=== PATIENT | female | born 1930 | race Caucasian/White ===

== ENCOUNTER 2016-08-18 12:58 | Outpatient (RCR) | payer MEDICARE ==
[~2016-08-18 12:58] MED LIST: AC325T PO; AC500T PO; ALN70T PO; ASP325T PO; ASP81TEC PO; ATEN-156 PO; ATEN50TA PO; ATR20T PO; ATRV10T PO; CA C1TAB26 PO; CATH IV; CHOL10003 PO; CHOL400T PO; CHOL400T26 PO; CHOL400T29 PO; CLAR-19; CLOP75TA PO; CPR500T PO; CRS350T PO; E400C PO; ENOX30DI9 SQ; FAMO20TA5 PO; FOLI1TAB6 PO; HYDR1CAP2 PO; IBUPROFEN; KRIL1CAP2 PO; KRIL1CAP22 PO; LEVO175T2 PO; LEVO75TA6 PO; LOSA100T7 PO; LOSA25TA15 PO; LOSA25TA5 PO; LOVA20TA2 PO; LOVA40TA2 PO; LVT.15T PO; MEGA RED PO; MULT-608 PO; NAPR220C11 PO; NAPR220T76 PO; OLME1TAB22 PO; OLME20TA21 PO; OMEP20CA12 PO; OMG1KC PO; ONDA2VIA IV; OXYC-12 PO; OXYC-309 PO; PRCD5U; PRED2.5T4; SALINE FLUSH IV; SENN1TAB76 PO; TMZP15C PO; VITA200C53 PO; VITA200C60 PO; [UNRECOGNIZED DRUG - OTHER] IV
--- OUTSIDE RECORDS SUMMARY | 2016-08-18 13:02 | XMS REPORT | Continuity of Care Document ---
Author Author [facility] Organization [facility] Address Unknown Phone Unavailable Care Team Providers Care Field Project Manager Name Role Phone TED BUCKNER MD PCP Insurance Providers Payer Name Policy Number Subscriber Name Relationship Wps Medicare [id number] Alpa Dill 18 Self / Same As Patient Blue Cross [facility] Supp [id number] Alpa Dill 18 Self / Same As Patient Advance Directives Directive Response Recorded Date/Time Advance Directives Yes 01/19/16 2:05am Health Care Power of Wood Die Maker Yes 01/19/16 2:05am Organ Donor No 01/19/16 2:05am Resuscitation Status Full Code 01/19/16 2:05am Chief Complaint and Reason for Visit Chief Complaint SMALL BOWEL OBSTRUCTION DUE TO ADHESIONS Reason for Visit Acute renal insufficiency Hypertension Hypothyroid Small bowel obstruction Small bowel obstruction due to adhesions Problems Active Problems Medical Problem Onset Date Status Acute renal insufficiency Unknown Resolved Chest pain of uncertain etiology Unknown Acute Hypertension Unknown Chronic Hypothyroid Unknown Chronic Small bowel obstruction Unknown Acute Small bowel obstruction due to adhesions Unknown Resolved Medications Current Home Medications Medication Dose Units Route Directions Days/Qty Instructions Start Date Atenolol 50 Mg 50 Mg Oral Daily 01/08/09 Losartan Potassium 100 Mg 100 Mg Oral Daily 04/06/13 Aspirin 325 Mg 325 Mg Oral Bedtime 04/06/13 Folic Acid/Mv,Fe,Other Min 1 Each 1 Tab Oral Daily 10/02/13 Cholecalciferol (Vitamin D3) 400 Unit 400 Unit Oral Daily 05/23/15 Krill/Om-3/Dha/Epa/Phospho/Ast 1 Each 1 Cap Oral Bedtime 05/23/15 Levothyroxine Sodium 75 Mcg 75 Mcg Oral Bedtime 01/20/16 Past Home Medications Medication Directions Ordered Status Multivitamins 1 Tab Tablet, 1 Tab Oral Daily 01/08/09 Discontinued Vitamin E 400 Unit Capsule, 400 U Oral Daily 01/08/09 Discontinued Levothyroxine Sodium (Levothroid) 150 Mcg Tablet, 150 Mcg Oral Daily Discontinued Olmesartn/Hydrochlorothiazide 1 Tab Tablet, 12.5 Mg Oral Daily 01/08/09 Discontinued Carisoprodol 350 Mg Tablet, 350 Mg Oral As Needed 01/08/09 Discontinued Hydrocodone Bit/Acetaminophen 1 Each Capsule, 1 Tab Oral As Needed 01/08/09 Discontinued Naproxen Sodium 220 Mg Tablet, 220 Mg Oral As Needed 01/08/09 Discontinued Acetaminophen 500 Mg Tablet, 500 Mg Oral As Needed 01/08/09 Discontinued Promethazine Hcl/Codeine 5 Ml Syrp, 01/08/09 Discontinued Clarithromycin 500 Mg Tab, 01/08/09 Discontinued Prednisone 2.5 Mg Tablet, 01/08/09 Discontinued Alendronate Sodium 70 Mg Tab, 70 Mg Oral Daily 01/08/09 Discontinued Levothyroxine Sodium 175 Mcg Tablet, 175 Mcg Oral Bedtime 04/09/11 Discontinued Lovastatin (Mevacor) 20 Mg Tablet, 40 Mg Oral Bedtime 04/09/11 Discontinued Fish Oil 1,000 Mg Cap, 1000 Mg Oral Three Times A Day 04/09/11 Discontinued Atenolol 50 Mg Tablet, 1 Each Oral Daily 04/09/11 Discontinued Olmesartan 20 Mg Tablet, 40 Mg Oral Daily 04/09/11 Discontinued Ca Cmb No.1/Vit D3/B-6/Fa/B12 1 Each Tablet, 1 Each Oral Daily 04/09/11 Discontinued Clopidogrel Bisulfate 75 Mg Tablet, 1 Each Oral Daily 09/14/11 Discontinued Aspirin 81 Mg Tabec, 81 Mg Oral Daily 09/14/11 Discontinued Aspirin 325 Mg Tab, 325 Mg Oral Daily 09/14/11 Discontinued Naproxen Sodium 220 Mg Capsule, 220 Mg Oral As Needed 09/30/11 Discontinued Vitamin E 400 Unit Capsule, 400 Unit Oral Daily 09/30/11 Discontinued Cholecalciferol 1,000 Unit Tablet, 1000 Unit Oral Daily 09/30/11 Discontinued [Ibuprofen] , As Needed 09/30/11 Discontinued Cholecalciferol (Vitamin D3) 400 Unit Tablet, 400 Unit Oral Daily 01/04/13 Discontinued Levothyroxine Sodium (Levothroid) 150 Mcg Tablet, 150 Mcg Oral Bedtime Discontinued Krill Oil/[place]-3/Dha/Epa 1 Each Capsule, 1 Cap Oral Twice A Day 01/04/13 Discontinued Acetaminophen 325 Mg Tab, 650 Mg Oral Every 6 Hours as needed 01/13/13 Discontinued Enoxaparin Sodium 30 Mg/0.3 Ml Disp.syrin, 30 Mg Sub-Q Give Every 12 Hrs On Schedule 01/13/13 Discontinued Losartan Potassium 25 Mg Tablet, 25 Mg Oral Daily 01/13/13 Discontinued Ondansetron Hcl 4 Mg/2 Ml Soln, 4 Mg Intraven Every 6 Hours as needed Discontinued Oxycodone Hcl/Acetaminophen 1 Each Tablet, 1 Each Oral Q2hrs as needed Discontinued Senna 1 Ea Tablet, 2 Ea Oral Twice A Day 01/13/13 Discontinued [Cathete] , 10 Ml Intraven As Needed as needed 01/13/13 Discontinued [Cath] , 10 Ml Intraven Every 8HRS 01/13/13 Discontinued Temazepam 15 Mg Capsule, 15 Mg Oral Bedtime as needed 01/13/13 Discontinued Cholecalciferol (Vitamin D3) 400 Unit Tablet, 400 Unit Oral Daily 01/13/13 Discontinued [Saline Flush] , 10 Ml Intraven Every 8HRS 01/13/13 Discontinued [Saline Flush] , 10 Ml Intraven As Needed 01/13/13 Discontinued Oxycodone Hcl/Acetaminophen 1 Each Tablet, 1 Each Oral Bedtime 01/17/13 Discontinued Losartan Potassium 25 Mg Tablet, 25 Mg Oral Daily 01/19/13 Discontinued Senna 1 Tab Tablet, 2 Tab Oral Twice A Day as needed 01/19/13 Discontinued Ciprofloxacin 500 Mg Tablet, 1 Tab Oral Twice A Day 03/06/13 Discontinued Vitamin E 400 Unit Capsule, 400 Unit Oral Daily 04/11/13 Discontinued [Jose L Red] , 1 Cap Oral Bedtime 04/11/13 Discontinued Lovastatin (Mevacor) 40 Mg Tablet, 40 Mg Oral Bedtime 04/11/13 Discontinued Atorvastatin Calcium 10 Mg Tablet, 10 Mg Oral Bedtime 10/02/13 Discontinued Vitamin E (Dl,Tocopheryl Acet) 200 Unit Capsule, 200 Unit Oral Daily Discontinued Atorvastatin Calcium 20 Mg Tablet, 20 Mg Oral Bedtime 10/02/13 Discontinued Famotidine (Pepcid) 20 Mg Tablet, 1 Each Oral Daily 10/02/13 Discontinued Vitamin E (Dl,Tocopheryl Acet) 200 Unit Capsule, 200 Unit Oral Daily Discontinued Omeprazole 20 Mg Capsule.dr, 20 Mg Oral Daily 05/24/15 Discontinued Social History Social History Problem Response Recorded Date/Time Alcohol Use Denies Use 01/19/2016 2:05am Recreational Drug Use No 01/19/2016 2:05am Recent Foreign Travel No 10/02/2013 10:30am Recent Infectious Disease Exposure No 10/02/2013 10:30am Hospitalization with Isolation Denies 10/02/2013 10:30am Smoking Status Current Everyday Smoker 01/19/2016 2:05am Do you dip or chew tobacco? No 01/18/2016 9:21pm Query Response Start Date Stop Date Smoking Status Current Everyday Smoker 03/20/2015 Hospital Discharge Instructions No hospital discharge instructions. Plan of Care Discharge Date 01/20/16 2:10pm Disposition 01 HOME, SELF-CARE Instructions/Education Provided Bowel Obstruction (DC) Forms Provided PDI Surgical Prescriptions See Medication Section Referrals (Unspecified) - 1 Week Functional Status Query Response Date Recorded Patient Orientation Person Place Time Situation January 20, 2016 2:57pm Comprehension Ability Understands Concepts January 19, 2016 2:05am Allergies, Adverse Reactions, Alerts Allergen Type Severity Reaction Status Last Updated Sulfa (Sulfonamide Antibiotics) ([id number]) Allergy Unknown Active 10/12 Immunizations Name Given Type Date of Pneumonia Vaccine 05/02/13 Historical Date of Influenza Vaccine 05/02/13 Historical Tetanus Booster (TDap) Unknown Historical Vital Signs Acute Vital Signs Vital Response Date/Time Temperature (Fahrenheit) 98.8 degrees F (97.6 - 99.5) 01/20/2016 2:05pm Temperature (Calculated Celsius) 37.39607 degrees C (36.4 - 37.5) 01/20/2016 10:00am Temperature Source Tympanic 01/20/2016 2:05pm Pulse Rate (adult) 60 bpm (60 - 90) 01/20/2016 2:05pm Respiratory Rate 16 bpm (12 - 24) 01/20/2016 2:05pm O2 Sat by Pulse Oximetry 93 % (88 - 100) 01/20/2016 2:05pm Blood Pressure 131/62 mm Hg 01/20/2016 2:05pm Blood Pressure Mean 85 mm Hg 01/20/2016 10:00am Pain Pain Intensity 0 01/20/2016 10:00am Height (Feet) 5 feet 01/19/2016 2:05am Height (Inches) 1.00 inches 01/19/2016 2:05am Height (Calculated Centimeters) 154.612168 cm 01/19/2016 2:05am Weight (Pounds) 142 pounds 01/19/2016 2:05am Weight (Ounces) 0.0 oz 01/19/2016 2:05am Weight (Calculated Grams) 67211.117 gm 01/19/2016 2:05am Weight (Calculated Kilograms) 64.709899 kilograms 01/19/2016 2:05am Calculated BMI 26.8 01/19/2016 2:05am Results Laboratory Results Test Name Result Units Flags Reference Collection Date/Time Result Date/ Time Comments White Blood Count 8.1 10^3/uL 4.3-11.0 01/20/2016 5:17am 01/20/2016 5: 52am Red Blood Count 3.53 10^6/uL L 4.35-5.85 01/20/2016 5:01/20/2016 5: 52am Hemoglobin 11.3 G/DL L 11.5-16.0 01/20/2016 5:01/20/2016 5:52am Hematocrit 35 % 35-52 01/20/2016 5:01/20/2016 5:52am Mean Corpuscular Volume 98 FL 80-99 01/20/2016 5:01/20/2016 5: 52am Mean Corpuscular Hemoglobin 32 PG 25-34 01/20/2016 5:17a01/20/2016 5: 52am Mean Corpuscular Hemoglobin Concent 33 G/DL 32-36 01/20/2016 5:17a 5:52am Red Cell Distribution Width 13.8 % 10.0-14.5 01/20/2016 5:17am 2015 5:52am Platelet Count 133 10^3/uL 130-400 01/20/2016 5:01/20/2016 5:52am Mean Platelet Volume 11.0 FL H 7.4-10.4 01/20/2016 5:01/20/2016 5: 52am Neutrophils (%) (Auto) 59 % 42-75 01/20/2016 5:01/20/2016 5:52am Lymphocytes (%) (Auto) 28 % 12-44 01/20/2016 5:01/20/2016 5:52am Monocytes (%) (Auto) 8 % 0-12 01/20/2016 5:01/20/2016 5:52am Eosinophils (%) (Auto) 5 % 0-10 01/20/2016 5:01/20/2016 5:52am Basophils (%) (Auto) 0 % 0-10 01/20/2016 5:01/20/2016 5:52am Neutrophils # (Auto) 4.8 X 10^3 1.8-7.8 01/20/2016 5:01/20/2016 5: 52am Lymphocytes # (Auto) 2.3 X 10^3 1.0-4.0 01/20/2016 5:01/20/2016 5: 52am Monocytes # (Auto) 0.6 X 10^3 0.0-1.0 01/20/2016 5:01/20/2016 5: 52am Eosinophils # (Auto) 0.4 10^3/uL H 0.0-0.3 01/20/2016 5:01/20/2016 5 :52am Basophils # (Auto) 0.0 10^3/uL 0.0-0.1 01/20/2016 5:01/20/2016 5: 52am Neutrophils % (Manual) 68 % 01/18/2016 9:20pm 01/18/2016 10:13pm Band Neutrophils 1 % 01/18/2016 9:20pm 01/18/2016 10:13pm Lymphocytes % (Manual) 28 % 01/18/2016 9:20pm 01/18/2016 10:13pm Monocytes % (Manual) 1 % 01/18/2016 9:20pm 01/18/2016 10:13pm Eosinophils % (Manual) 1 % 01/18/2016 9:20pm 01/18/2016 10:13pm Basophils % (Manual) 1 % 01/18/2016 9:20pm 01/18/2016 10:13pm Blood Morphology Comment NORMAL 01/18/2016 9:20pm 01/18/2016 10: 13pm Urine Color YELLOW 01/19/2016 4:37am 01/19/2016 4:53am Urine Clarity VERY CLOUDY * 01/19/2016 4:37am 01/19/2016 4:53am Urine pH 6 5-9 01/19/2016 4:37am 01/19/2016 4:53am Urine Specific [place] 1.015 * 1.016-1.022 01/19/2016 4:37am 2015 4:53am Urine Protein 2+ * NEGATIVE 01/19/2016 4:37am 01/19/2016 4:53am Urine Glucose (UA) NEGATIVE NEGATIVE 01/19/2016 4:37am 01/19/2016 4: 53am Urine RBC (Auto) NEGATIVE NEGATIVE 01/19/2016 4:37am 01/19/2016 4: 53am Urine Ketones NEGATIVE NEGATIVE 01/19/2016 4:37am 01/19/2016 4:53am Urine Nitrite NEGATIVE NEGATIVE 01/19/2016 4:37am 01/19/2016 4:53am Urine Bilirubin NEGATIVE NEGATIVE 01/19/2016 4:37am 01/19/2016 4: 53am Urine Urobilinogen 1 MG/DL NORMAL 01/19/2016 4:37am 01/19/2016 4:53am Urine Leukocyte Esterase 2+ * NEGATIVE 01/19/2016 4:37am 01/19/2016 4: 53am Urine RBC NONE /HPF 01/19/2016 4:37am 01/19/2016 4:53am Urine WBC 10-25 /HPF * 01/19/2016 4:37am 01/19/2016 4:53am Urine Bacteria LARGE /HPF * 01/19/2016 4:37am 01/19/2016 4:53am Urine Squamous Epithelial Cells NONE /HPF 01/19/2016 4:37am 2015 4:53am Urine Crystals NONE /LPF 01/19/2016 4:37am 01/19/2016 4:53am Urine Casts NONE /LPF 01/19/2016 4:37am 01/19/2016 4:53am Urine Mucus NEGATIVE /LPF 01/19/2016 4:37am 01/19/2016 4:53am Urine Culture Indicated YES 01/19/2016 4:37am 01/19/2016 4:53am Sodium Level 141 MMOL/L 135-145 01/20/2016 5:01/20/2016 6:12am Potassium Level 4.3 MMOL/L 3.6-5.0 01/20/2016 5:01/20/2016 6:12am Chloride Level 108 MMOL/L H 98-107 01/20/2016 5:01/20/2016 6:12am Carbon Dioxide Level 24 MMOL/L 21-32 01/20/2016 5:01/20/2016 6: 12am Anion Gap 9 MMOL/L 5-14 01/20/2016 5:01/20/2016 6:12am Blood Urea Nitrogen 22 MG/DL H 7-18 01/20/2016 5:01/20/2016 6:12am Creatinine 1.14 MG/DL 0.60-1.30 01/20/2016 5:01/20/2016 6:12am BUN/Creatinine Ratio 19 01/20/2016 5:01/20/2016 6:12am Estimat Glomerular Filtration Rate 45 01/20/2016 5:01/20/2016 6:12am GFR INTERPRETIVE DATA UNITS FOR ESTIMATED GFR (eGFR): mL/min/1.73 M2 REFERENCE RANGE FOR ESTIMATED GFR (eGFR) eGFR NORMAL eGFR >60 MODERATELY DECREASED eGFR 30-59 SEVERLY DECREASED eGFR 15-29 KIDNEY FAILURE <15 (OR DIALYSIS) Glucose Level 133 MG/DL H 70-105 01/20/2016 5:01/20/2016 6:12am Calcium Level 8.4 MG/DL L 8.5-10.1 01/20/2016 5:01/20/2016 6:12am Total Bilirubin 0.7 MG/DL 0.1-1.0 01/20/2016 5:01/20/2016 6:12am Alkaline Phosphatase 45 U/L 40-136 01/20/2016 5:01/20/2016 6:12am Aspartate Amino Transf (AST/SGOT) 16 U/L 5-34 01/20/2016 5:2015 6:12am Alanine Aminotransferase (ALT/SGPT) 12 U/L 0-55 01/20/2016 5:17am 01/19 6:12am Total Protein 5.0 G/DL L 6.4-8.2 01/20/2016 5:17am 01/20/2016 6:12am Albumin 3.2 G/DL 3.2-4.5 01/20/2016 5:17am 01/20/2016 6:12am Amylase Level 60 U/L 25-125 01/18/2016 9:20pm 01/18/2016 10:06pm Lipase 11 U/L 8-78 01/18/2016 9:20pm 01/18/2016 10:06pm Microbiology Results Procedure Source Result Collection Date/Time Result Date/Time Urine Culture Urine, Clean Catch PROBABLE E.COLI 01/19/2016 4:37am 2015 7:44am Procedures No known history of procedures. Encounters Encounter Location Arrival/Admit Date Discharge/Depart Date Attending Provider Discharged Inpatient [facility] 01/19/16 1:29am 2:10pm PRIYANKA FOX DO Recent Diagnosis Acute renal insufficiency Hypertension Hypothyroid Small bowel obstruction Small bowel obstruction due to adhesions
[2016-08-18 13:19] LABS: BASOPHILS # (AUTO) 0.1 10^3/uL (0.0-0.1); BASOPHILS % (AUTO) 1 % (0-10); EOSINOPHILS # (AUTO) 0.2 10^3/uL (0.0-0.3); EOSINOPHILS % (AUTO) 3 % (0-10); LYMPHOCYTES # (AUTO) 2.4 X 10^3 (1.0-4.0); LYMPHOCYTES % (AUTO) 28 % (12-44); MEAN CORPUSCULAR HEMOGLOBIN 32 PG (25-34); MEAN CORPUSCULAR HGB CONC 34 G/DL (32-36); MEAN CORPUSCULAR VOLUME 96 FL (80-99); MEAN PLATELET VOLUME 9.9 FL (7.4-10.4); MONOCYTES # (AUTO) 0.6 X 10^3 (0.0-1.0); MONOCYTES % (AUTO) 7 % (0-12); NEUTROPHILS # (AUTO) 5.4 X 10^3 (1.8-7.8); NEUTROPHILS % (AUTO) 62 % (42-75); PLATELET COUNT 173 10^3/uL (130-400); RED BLOOD COUNT 4.04 10^6/uL (4.35-5.85); RED CELL DISTRIBUTION WIDTH 13.7 % (10.0-14.5); WHITE BLOOD COUNT 8.7 10^3/uL (4.3-11.0)
[2016-08-18 13:44] LABS: ALBUMIN 4.1 G/DL (3.2-4.5); BILIRUBIN,TOTAL 0.3 MG/DL (0.1-1.0); CREATININE SERUM 1.13 MG/DL (0.60-1.30); POTASSIUM 4.5 MMOL/L (3.6-5.0); TOTAL PROTEIN 6.5 G/DL (6.4-8.2)
[2016-10-28] MEDS ORDERED: AMLO5TAB2 PO (14:14)
[2016-10-28] MEDS ORDERED: HYDR-3812 PO (15:00)
== END 2016-11-16 | disposition home or self-care (01) ==
LOC: ONC 12:58
PROVIDERS: ATTEND Internal Medicine Hematology & Oncology
DX: C18.7 Malignant neoplasm of sigmoid colon (principal); I25.10 Atherosclerotic heart disease of native coronary artery without angina pectoris; E78.00 Pure hypercholesterolemia, unspecified; I10 Essential (primary) hypertension; E03.9 Hypothyroidism, unspecified; E11.9 Type 2 diabetes mellitus without complications; Z79.899 Other long term (current) drug therapy
CPT/HCPCS: 36415; 80053; 82378; 84443; 85025; 99213

== ENCOUNTER → 2016-09-01 | Outpatient (CLI) | payer MEDICARE ==
[~2016-09-01] MED LIST changes: +AMLO5TAB2 PO; +HYDR-3812 PO
--- OUTSIDE RECORDS SUMMARY | 2016-09-01 11:22 | XMS REPORT | Continuity of Care Document ---
Author Author [facility] Organization [facility] Address Unknown Phone Unavailable Care Team Providers Care Dough Maker Name Role Phone TED BUCKNER MD PCP Insurance Providers Payer Name Policy Number Subscriber Name Relationship Wps Medicare [id number] Alpa Dill 18 Self / Same As Patient Blue Cross [facility] Supp [id number] Alpa Dill 18 Self / Same As Patient Advance Directives Directive Response Recorded Date/Time Advance Directives Yes 01/19/16 2:05am Health Care Power of Him Director Yes 01/19/16 2:05am Organ Donor No 01/19/16 [...] Tablet, 150 Mcg Oral Bedtime Discontinued Krill Oil/[place]-3/Dha/Epa 1 Each Capsule, 1 Cap Oral Twice [...] Reaction Status Last Updated Sulfa (Sulfonamide Antibiotics) ([id number]) Allergy Unknown Active 10/12 Immunizations Name Given Type Date of Pneumonia Vaccine 05/02/13 Historical Date of Influenza Vaccine 05/02/13 Historical Tetanus Booster (TDap) Unknown Historical Vital Signs Acute Vital Signs Vital Response Date/Time Temperature (Fahrenheit) 98.8 degrees F (97.6 - 99.5) 01/20/2016 2:05pm Temperature (Calculated Celsius) 37.84365 degrees C (36.4 - 37.5) 01/20/2016 10:00am [...] 1.00 inches 01/19/2016 2:05am Height (Calculated Centimeters) 154.062606 cm 01/19/2016 2:05am Weight (Pounds) 142 pounds 01/19/2016 2:05am Weight (Ounces) 0.0 oz 01/19/2016 2:05am Weight (Calculated Grams) 50349.117 gm 01/19/2016 2:05am Weight (Calculated Kilograms) 64.139290 kilograms 01/19/2016 2:05am Calculated BMI 26.8 01/19/2016 [...] 5-9 01/19/2016 4:37am 01/19/2016 4:53am Urine Specific [place] 1.015 * 1.016-1.022 01/19/2016 4:37am 2015 4:53am [...] Discharge/Depart Date Attending Provider Discharged Inpatient [facility] 01/19/16 1:29am 2:10pm PRIYANKA FOX DO Recent Diagnosis Acute renal insufficiency Hypertension Hypothyroid Small bowel obstruction Small bowel obstruction due to adhesions
--- NOTE | 2016-09-01 12:00 | Diagnostic Imaging Report ---
INDICATION: Shortness of breath and right rib pain. PA and lateral chest. Heart and mediastinum are normal. Lungs are clear. There are no effusions or pneumothoraces. IMPRESSION: Negative chest. Dictated by: Dictated on workstation # [id number]
--- NOTE | 2016-09-01 12:02 | Diagnostic Imaging Report ---
INDICATION: Right rib injury 3 views of right ribs does not show any displaced fractures. There is no effusion or pneumothorax. IMPRESSION: Negative right ribs. Dictated by: Dictated on workstation # [id number]
== END ==
LOC: RAD 11:17
PROVIDERS: ATTEND Nurse Practitioner Family
DX: R05 Cough (principal); R07.81 Pleurodynia; Z99.81 Dependence on supplemental oxygen; Z91.81 History of falling
CPT/HCPCS: 71020; 71100

== ENCOUNTER → 2016-10-06 | Outpatient (CLI) | payer MEDICARE, OTHER ==
--- OUTSIDE RECORDS SUMMARY | 2016-10-06 10:03 | XMS REPORT | Continuity of Care Document ---
Author Author [facility] Organization [facility] Address Unknown Phone Unavailable Care Team Providers Care Merchandise For Resale Purchasing Agent Name Role Phone TED BUCKNER MD PCP Insurance Providers Payer Name Policy Number Subscriber Name Relationship Wps Medicare [id number] Alpa Dill 18 Self / Same As Patient Blue Cross [facility] Supp [id number] Alpa Dill 18 Self / Same As Patient Advance Directives Directive Response Recorded Date/Time Advance Directives Yes 01/19/16 2:05am Health Care Power of Pecan Sheller Yes 01/19/16 2:05am Organ Donor No 01/19/16 [...] Tablet, 150 Mcg Oral Bedtime Discontinued Krill Oil/[place]-3/Dha/Epa 1 Each Capsule, 1 Cap Oral Twice [...] Reaction Status Last Updated Sulfa (Sulfonamide Antibiotics) ([id number]) Allergy Unknown Active 10/12 Immunizations Name Given Type Date of Pneumonia Vaccine 05/02/13 Historical Date of Influenza Vaccine 05/02/13 Historical Tetanus Booster (TDap) Unknown Historical Vital Signs Acute Vital Signs Vital Response Date/Time Temperature (Fahrenheit) 98.8 degrees F (97.6 - 99.5) 01/20/2016 2:05pm Temperature (Calculated Celsius) 37.47462 degrees C (36.4 - 37.5) 01/20/2016 10:00am [...] 1.00 inches 01/19/2016 2:05am Height (Calculated Centimeters) 154.638206 cm 01/19/2016 2:05am Weight (Pounds) 142 pounds 01/19/2016 2:05am Weight (Ounces) 0.0 oz 01/19/2016 2:05am Weight (Calculated Grams) 25534.117 gm 01/19/2016 2:05am Weight (Calculated Kilograms) 64.781610 kilograms 01/19/2016 2:05am Calculated BMI 26.8 01/19/2016 [...] 5-9 01/19/2016 4:37am 01/19/2016 4:53am Urine Specific [place] 1.015 * 1.016-1.022 01/19/2016 4:37am 2015 4:53am [...] Discharge/Depart Date Attending Provider Discharged Inpatient [facility] 01/19/16 1:29am 2:10pm PRIYANKA FOX DO Recent Diagnosis Acute renal insufficiency Hypertension Hypothyroid Small bowel obstruction Small bowel obstruction due to adhesions
--- NOTE | 2016-10-06 19:45 | Diagnostic Imaging Report ---
EXAM: Digital mammogram, bilateral screening. The current study was also evaluated with a Computer Aided Detection (CAD) system. COMPARISON: 09/14/14, 07/07/13 and 05/25/12. At this time, there are no current complaints. FINDINGS: The fibroglandular tissue in both breasts is dense. This does limit the sensitivity of this exam. Overall, there does not appear to have been any significant change when compared to the prior study. No primary or secondary sign of malignancy is noted. IMPRESSION: There is no radiographic evidence for malignancy. ACR BI-RADS Category 1: Negative. Result letter will be mailed to the patient. Note: At least 10% of breast cancer is not imaged by mammography. Dictated by: Dictated on workstation # [id number]
== END ==
LOC: RAD 10:00
PROVIDERS: ATTEND Internal Medicine
DX: Z12.31 Encounter for screening mammogram for malignant neoplasm of breast (principal)
CPT/HCPCS: 77067

== ENCOUNTER 2016-10-28 13:56 | Emergency (ER) | payer MEDICARE, OTHER ==
[~2016-10-28] VITALS: Ht 154.9 cm; Wt 64.4 kg
[~2016-10-28 13:56] MED LIST changes: -AMLO5TAB2 PO; -HYDR-3812 PO
[2016-10-28] MEDS ORDERED: AMLO5TAB2 PO (14:14)
--- NOTE | 2016-10-28 14:38 | Diagnostic Imaging Report ---
INDICATION: Fall with right humeral pain. AP and lateral views of the right humerus are obtained. FINDINGS: There is a comminuted fracture of the lateral portion of the humeral head and neck. Humeral shaft appears intact. There is no lytic or blastic lesion. IMPRESSION: Acute fracture of lateral portion of humeral head and neck without significant displacement. Dictated by: Dictated on workstation # [id number]
--- NOTE | 2016-10-28 14:41 | Diagnostic Imaging Report ---
3 views of the right shoulder. INDICATION: Fall. FINDINGS: There is a comminuted fracture of the proximal humerus with a sclerotic nondisplaced fracture line running in a transverse plane through the anatomic neck of the humerus. There is no subluxation or dislocation. Mild degenerative changes at the acromioclavicular joint. IMPRESSION: Comminuted fracture of the proximal humerus with minimal displacement of the greater tuberosity laterally. Dictated by: Dictated on workstation # [id number]
[2016-10-28] MEDS ORDERED: HYDR-3812 PO (15:00)
--- NOTE | 2016-10-28 15:02 | ED Fall/Injury ---
General Chief Complaint: Upper Extremity Stated Complaint: FALL / R ARM Nursing Triage Note: PT CO OF R SHOULDER PAIN FROM FALL, STATES KNEE GAVE OUT AND FELL AT [facility] Source: patient, spouse Exam Limitations: no limitations History of Present Illness Time seen by provider: 14:43 Initial Comments 78-year-old female patient presents to the emergency department complains of right shoulder pain after falling. States her knee gave out and she fell onto the right shoulder while at [facility]. Denies hitting her head or loss of consciousness. Denies neck or back pain. Location Injury Occurred: [facility] Occurred: this morning Injuries/Pain Location: upper extremity (rt shoulder) Context: other (knee gave out) Loss of Consciousness: no loss of consciousness Modifying Factors: Improves With Immobilization, Worse With Movement Allergies and Home Medications Allergies Coded Allergies: Sulfa (Sulfonamide Antibiotics) (Verified Allergy, Unknown, 03/04/13) Home Medications Amlodipine Besylate 5 Mg Tablet, 5 MG PO DAILY, (Reported) Aspirin 325 Mg Tab, 325 MG PO HS, (Reported) Atenolol 50 Mg Tablet, 50 MG PO DAILY, (Reported) Cholecalciferol (Vitamin D3) 400 Unit Tablet, 400 UNIT PO DAILY, (Reported) Folic Acid/Mv,Fe,Other Min 1 Each Tablet, 1 TAB PO DAILY, (Reported) Hydrocodone/Acetaminophen 1 Each Tablet, 1 EACH PO Q4H PRN for PAIN, #30 Ref 0 Prescribed by: PEPE TAMEZ on 10/28/16 1500 Krill/Om-3/Dha/Epa/Phospho/Ast 1 Each Capsule, 1 CAP PO HS, (Reported) Levothyroxine Sodium 75 Mcg Tablet, 75 MCG PO HS, (Reported) Constitutional: No dizziness, No weakness Eyes: No Symptoms Reported Ears, Nose, Mouth, Throat: no symptoms reported Respiratory: No cough, No short of breath Cardiovascular: No chest pain, No palpitations, No syncope Gastrointestinal: no symptoms reported Genitourinary: no symptoms reported Musculoskeletal: No back pain, joint pain (rt shoulder), joint swelling (rt shoulder), No neck pain Skin: no symptoms reported Psychiatric/Neurological: Denies Headache, Denies Numbness, Denies Paresthesia , Denies Seizure, Denies Tingling, Denies Weakness All Other Systems Reviewed Negative Unless Noted: Yes (Negative excepted noted.) Past Xpfkezx-Kkswem-Qppfus Hx Patient Social History Alcohol Use: Denies Use Recreational Drug Use: No Smoking Status: Never a Smoker Former Smoker/When Quit: Mar 20, 2015 2nd Hand Smoke Exposure: No Recent Foreign Travel: No Contact w/Someone Who Travel: No Recent Infectious Disease Expo: No Recent Hopitalizations: No Immunizations Up To Date Tetanus Booster (TDap): Unknown PED Vaccines UTD: No Date of Pneumonia Vaccine: May 02, 2013 Date of Influenza Vaccine: May 02, 2013 Seasonal Allergies Seasonal Allergies: No Surgeries HX Surgeries: Yes (RIGHT KNEE AND LEFT HIP REPLACEMENTS) Surgeries: Gallbladder, Hysterectomy, Joint Replacement, Orthopedic Respiratory Hx Respiratory Disorders: Yes (AT AGE 7 ) Respiratory Disorders: Pneumonia Cardiovascular Hx Cardiac Disorders: Yes Cardiac Disorders: Heart Murmur, Hypertension, Valvular Heart Disease Neurological Hx Neurological Disorders: No Reproductive System Hx Reproductive Disorders: No Genitourinary Hx Genitourinary Disorders: No Genitourinary Disorders: Bladder Infection Gastrointestinal Hx Gastrointestinal Disorders: Yes Gastrointestinal Disorders: Obstructive Bowel, Chronic Constipation, Polyps Musculoskeletal Hx Musculoskeletal Disorders: Yes (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) Musculoskeletal Disorders: Arthritis Endocrine Hx Endocrine Disorders: Yes Endocrine Disorders: Hypothyroidsim HEENT HX ENT Disorders: Yes HEENT Disorders: Cataract Hearing Impairment: Hard of Hearing 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) Psychosocial Hx Psychiatric Problems: Yes Behavioral Health Disorders: Depression Integumentary HX Skin/Integumentary Disorder: No Blood Transfusions Hx Blood Disorders: No Adverse Reaction to a Blood Tr: No Reviewed Nursing Assessment Reviewed/Agree w Nursing PMH: Yes Family Medical History Significant Family History: Heart Disease, Hypertension Family Medial History: Myocardial infarction 19 FATHER, Onset:84 (FATHER OF UNKNOWN HEART PROBLEMS, PT STATES IT WAS PROBABLY A HEART ATTACK) 19 MOTHER, Onset:70 G8 BROTHER, Onset:46 G8 SISTER Physical Exam Vital Signs Capillary Refill : Less Than 3 Seconds Progress/Results/Core Measures Results/Orders My Orders Orders - PEPE TAMEZ Hydrocodone/Apap 5/325 Tablet (Lortab 5 (10/28/16 15:26) Padded Arm Sling Medium (10/28/16 15:26) Vital Signs/I&O Blood Pressure Mean: 119 Diagnostic Imaging Diagonstic Imaging: Xray Plain Films/CT/US/NM/MRI: other (rt shoulder) Comments FINDINGS: There is a comminuted fracture of the proximal humerus with a sclerotic nondisplaced fracture line running in a transverse plane through the anatomic neck of the humerus. There is no subluxation or dislocation. Mild degenerative changes at the acromioclavicular joint. IMPRESSION: Comminuted fracture of the proximal humerus with minimal displacement of the greater tuberosity laterally. Dictated by: Dictated on workstation # [id number] Reviewed: Reviewed by Me (radiology report reviewed) Diagonstic Imaging: Xray Plain Films/CT/US/NM/MRI: other (rt humerus) Comments INDICATION: Fall with right humeral pain. AP and lateral views of the right humerus are obtained. FINDINGS: There is a comminuted fracture of the lateral portion of the humeral head and neck. Humeral shaft appears intact. There is no lytic or blastic lesion. IMPRESSION: Acute fracture of lateral portion of humeral head and neck without significant displacement. Dictated by: Dictated on workstation # [id number] Reviewed: Reviewed by Me (radiology report reviewed.) Departure Communication Progress Notes Patient case discussed with Dr. Alfredo. Recommends placing patient in a shoulder immobilizer or sling and having her follow-up in his office within the next 7 days for recheck and further management. Diagnostic findings as well as recommendations by Dr. Alfredo discussed with the patient. Patient voices understanding and agrees with the treatment plan. Patient placed in a sling. All discharge instructions as well as return precautions were discussed with the patient. Patient voices understanding. Impression Impression: Primary Impression: Proximal humeral fracture Qualified Codes: S42.201A - Unspecified fracture of upper end of right humerus , initial encounter for closed fracture Disposition: 01 HOME, SELF-CARE Condition: Improved Departure-Patient Inst. Decision time for Depature: 14:58 Referrals: DEVI ALFREDO MD, JOHN D MD (PCP/Family) Primary Care Physician Patient Instructions: Shoulder Fracture (DC) Add. Discharge Instructions: All discharge instructions reviewed with patient and/or family. Voiced understanding. Medications as instructed. No ibuprofen or Aleve. Ice pack for 20 minute intervals as needed for pain. Arm sling as instructed. Follow- up with Dr. Alfredo as outpatient next 7 days, call his office for appointment time today. Return to the emergency department for worsened pain, numbness, weakness, discoloration, neck pain, back pain, changes in behavior, slurred speech, changes in behavior, chest pain, shortness of air, vomiting, seizure, or any other concerns. Scripts Hydrocodone/Acetaminophen (Hydrocodon -Acetaminophen 5-325) 1 Each Tablet 1 EACH PO Q4H Y for PAIN, #30 TAB 0 Refills Prov: PEPE TAMEZ 10/28/16 PEPE TAMEZ Oct 28, 2016 15:02
[2016-10-28] MEDS ORDERED: HYDROcodone/APAP 5 MG/325 MG (LORTAB) TAB PO STA (15:26)
[2016-10-28 15:49] VITALS: BP 136/84
--- OUTSIDE RECORDS SUMMARY | 2016-11-22 04:50 | XMS REPORT | Continuity of Care Document ---
Author Author [facility] Organization [facility] Address Unknown Phone Unavailable Allergies Active Description Code Type Severity Reaction Onset Reported/Identified Relationship to Patient Clinical Status Yes Sulfa (Sulfonamide Antibiotics) [id number] Drug Allergy Unknown N/A 03/04/2013 Medications Problems Date Dx Coded Attending Type Code Diagnosis Diagnosed By 04/10/2011 Ot 211.3 BENIGN NEOPLASM LG BOWEL 04/10/2011 Ot 244.9 HYPOTHYROIDISM NOS 04/10/2011 Ot 250.00 DIAB BRIDGET WO COMPL, TYPE II OR UNSPEC TY 04/10/2011 Ot 272.0 PURE HYPERCHOLESTEROLEM 04/10/2011 Ot 401.9 HYPERTENSION NOS 04/10/2011 Ot 530.81 ESOPHAGEAL REFLUX 04/10/2011 Ot 553.3 DIAPHRAGMATIC HERNIA 04/10/2011 Ot 562.12 DIVERTICULOSIS OF COLON WITH HEMORRHAGE 04/10/2011 Ot 578.1 BLOOD IN STOOL 08/13/2011 Ot 433.10 CAROTID ARTERY OCCLUSION W O CEREBRAL IN 08/13/2011 Ot 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 08/13/2011 Ot V43.64 HIP JOINT REPLACEMENT STATUS 08/13/2011 Ot V45.77 ACQRD ABSENCE OF GENITAL ORGANS 08/13/2011 Ot V45.79 ACQRD ABSENCE OF OTH ORGAN 08/13/2011 Ot V58.69 OTH MED,LT,CURRENT USE 09/30/2011 Ot 244.9 HYPOTHYROIDISM NOS 09/30/2011 Ot 250.00 DIAB BRIDGET WO COMPL, TYPE II OR UNSPEC TY 09/30/2011 Ot 272.4 HYPERLIPIDEMIA NEC/NOS 09/30/2011 Ot 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 09/30/2011 Ot 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 09/30/2011 Ot 401.9 HYPERTENSION NOS 09/30/2011 Ot 426.4 RT BUNDLE BRANCH BLOCK 09/30/2011 Ot 433.10 CAROTID ARTERY OCCLUSION W O CEREBRAL IN 09/30/2011 Ot 440.0 AORTIC ATHEROSCLEROSIS 09/30/2011 Ot V12.54 PERSONAL HX OF TIA, CEREBRAL INFARCTION 09/30/2011 Ot V58.66 LONG-TERM (CURRENT) USE OF ASPIRIN 09/30/2011 Ot V58.69 OTH MED,LT,CURRENT USE 01/13/2013 AURA ESCOBAR MD Ot 244.9 HYPOTHYROIDISM NOS 01/13/2013 AURA ESCOBAR MD Ot 250.00 DIAB BRIDGET WO COMPL, TYPE II OR UNSPEC TY 01/13/2013 AURA ESCOBAR MD Ot 272.4 HYPERLIPIDEMIA NEC/NOS 01/13/2013 AURA ESCOBAR MD Ot 401.9 HYPERTENSION NOS 01/13/2013 AURA ESCOBAR MD Ot 530.81 ESOPHAGEAL REFLUX 01/13/2013 AURA ESCOBAR MD Ot 715.36 LOC OSTEOARTH NOS-L/LEG 01/19/2013 OLVIN LIND, PRIYANKA E Ot 244.9 HYPOTHYROIDISM NOS 01/19/2013 OLVIN LIND, PRIYANKA E Ot 250.00 DIAB BRIDGET WO COMPL, TYPE II OR UNSPEC TY 01/19/2013 OLVIN LIND, PRIYANKA E Ot 272.4 HYPERLIPIDEMIA NEC/NOS 01/19/2013 OLVIN LIND, PRIYANKA E Ot 285.9 ANEMIA NOS 01/19/2013 OLVIN LIND, PRIYANKA E Ot 401.9 HYPERTENSION NOS 01/19/2013 OLVIN LIND, PRIYANKA E Ot 443.9 PERIPH VASCULAR DIS NOS 01/19/2013 OLVIN LIND, PRIYANKA E Ot 530.81 ESOPHAGEAL REFLUX 01/19/2013 OLVIN LIND, PRIYANKA E Ot 716.90 ARTHROPATHY NOS-UNSPEC 01/19/2013 OLVIN LIND, PRIYANKA E Ot 786.09 RESPIRATORY ABNORM NEC 01/19/2013 OLVIN LIND, PRIYANKA E Ot V43.65 KNEE JOINT REPLACEMENT STATUS 01/19/2013 OLVIN LIND, PRIYANKA E Ot V54.81 AFTERCARE FOLLOWING JOINT REPLACEMENT 01/19/2013 OLVIN LIND, PRIYANKA E Ot V57.89 REHABILITATION PROC NEC 03/06/2013 Ot 041.3 KLEBSIELLA PNEUMONIAE 03/06/2013 Ot 041.49 OTHER AND UNSPECIFIED ESCHERICHIA COLI [ 03/06/2013 Ot 041.85 BACTERIAL INFEC DUE TO OTH GRAM-NEG ORGA 03/06/2013 Ot 244.9 HYPOTHYROIDISM NOS 03/06/2013 Ot 250.00 DIAB BRIDGET WO COMPL, TYPE II OR UNSPEC TY 03/06/2013 Ot 272.4 HYPERLIPIDEMIA NEC/NOS 03/06/2013 Ot 401.9 HYPERTENSION NOS 03/06/2013 Ot 414.01 CORONARY ATHEROSCLEROSIS OF [place] CORON 03/06/2013 Ot 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 03/06/2013 Ot V15.82 HISTORY OF TOBACCO USE 04/11/2013 DEBBIE QUEEN DO Ot 211.3 BENIGN NEOPLASM LG BOWEL 04/11/2013 DEBBIE QUEEN DO Ot 578.1 BLOOD IN STOOL 08/16/2013 NEGIN KAT MD Ot 211.4 BENIGN NEOPL RECTUM/ANUS 08/16/2013 NEGIN KAT MD Ot 455.0 INT HEMORRHOID W/O COMPL 08/16/2013 NEGIN KAT MD Ot 455.3 EXT HEMORRHOID W/O COMPL 08/16/2013 NEGIN KAT MD Ot 562.10 DIVERTICULOSIS COLON (W/O MENT OF HEMORR 10/02/2013 TED BUCKNER MD Ot 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 10/02/2013 TED BUCKNER MD Ot 244.9 HYPOTHYROIDISM NOS 10/02/2013 TED BUCKNER MD Ot 250.00 DIAB BRIDGET WO COMPL, TYPE II OR UNSPEC TY 10/02/2013 TED BUCKNER MD Ot 272.0 PURE HYPERCHOLESTEROLEM 10/02/2013 TED BUCKNER MD Ot 272.4 HYPERLIPIDEMIA NEC/NOS 10/02/2013 TED BUCKNER MD Ot 311 DEPRESSIVE DISORDER NEC 10/02/2013 TED BUCKNER MD Ot 338.29 OTHER CHRONIC PAIN 10/02/2013 TED BUCKNER MD Ot 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 10/02/2013 TED BUKCNER MD Ot 397.0 TRICUSPID VALVE DISEASE 10/02/2013 TED BUCKNER MD Ot 401.9 HYPERTENSION NOS 10/02/2013 TED BUCKNER MD Ot 414.01 CORONARY ATHEROSCLEROSIS OF [place] CORON 10/02/2013 TED BUCKNER MD Ot 426.4 RT BUNDLE BRANCH BLOCK 10/02/2013 TED BUCKNER MD Ot 427.61 ATRIAL PREMATURE BEATS 10/02/2013 TED BUCKNER MD Ot 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 10/02/2013 TED BUCKNER MD Ot 433.10 CAROTID ARTERY OCCLUSION W O CEREBRAL IN 10/02/2013 TED BUCKNER MD Ot 443.9 PERIPH VASCULAR DIS NOS 10/02/2013 DUDLEY LIND, TED Ruiz Ot 716.90 ARTHROPATHY NOS-UNSPEC 10/02/2013 TED BUCKNER MD Ot 719.41 JOINT PAIN-SHLDER 10/02/2013 TED BUCKNER MD Ot 724.5 BACKACHE NOS 10/02/2013 TED BUCKNER MD Ot 785.2 CARDIAC MURMURS NEC 10/02/2013 TED BUCKNER MD Ot 786.59 CHEST PAIN NEC 10/02/2013 TED BUCKNER MD Ot V17.49 FAMILY HISTORY OF OTHER CARDIOVASCULAR D 12/03/2013 GERBER SUAREZ MD Ot 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 12/03/2013 GERBER SUAREZ MD Ot 244.9 HYPOTHYROIDISM NOS 12/03/2013 DANIELA LIND, GERBER [place] Ot 250.00 DIAB BRIDGET WO COMPL, TYPE II OR UNSPEC TY 12/03/2013 GERBER SUAREZ MD Ot 272.0 PURE HYPERCHOLESTEROLEM 12/03/2013 GERBER SUAREZ MD Ot 401.9 HYPERTENSION NOS 12/03/2013 GERBER SUAREZ MD Ot 414.00 CORON ATHEROSCLER NOS TYPE VESSEL, NATIV 03/05/2014 GERBER SUAREZ MD Ot 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 03/05/2014 GERBER SUAREZ MD Ot 244.9 HYPOTHYROIDISM NOS 03/05/2014 DANIELA LIND, GERBER [place] Ot 250.00 DIAB BRIDGET WO COMPL, TYPE II OR UNSPEC TY 03/05/2014 GERBER SUAREZ MD Ot 272.0 PURE HYPERCHOLESTEROLEM 03/05/2014 GERBER SUAREZ MD Ot 401.9 HYPERTENSION NOS 03/05/2014 GERBER SUAREZ MD Ot 414.00 CORON ATHEROSCLER NOS TYPE VESSEL, NATIV 06/15/2014 FREDERIC HARVEY Ot 250.00 06/15/2014 FREDERIC HARVEY Ot 272.0 06/15/2014 FREDERIC HARVEY Ot 401.9 06/15/2014 FREDERIC HARVEY Ot 434.91 06/15/2014 FREDERIC HARVEY Ot 786.50 06/26/2014 GERBER SUAREZ MD Ot 153.3 06/26/2014 GERBER SUAREZ MD Ot 244.9 06/26/2014 GERBER SUAREZ MD Ot 250.00 06/26/2014 GERBER SUAREZ MD Ot 272.0 06/26/2014 DANIELA LIND, GERBER [place] Ot 401.9 06/26/2014 DANIELA LIND, GERBER K Ot 414.00 07/04/2014 DANIELA LIND, GERBER K Ot 153.3 07/04/2014 DANIELA LIND, GERBER [place] Ot 244.9 07/04/2014 DANIELA LIND, GERBER K Ot 250.00 07/04/2014 DANIELA LIND, GERBER K Ot 272.0 07/04/2014 DANIELA LIND, GERBER K Ot 401.9 07/04/2014 DANIELA LIND, GERBER K Ot 414.00 07/05/2014 DANIELA LIND, GERBER K Ot 153.3 07/05/2014 DANIELA LIND, GERBER [place] Ot 244.9 07/05/2014 DANIELA LIND, GERBER K Ot 250.00 07/05/2014 DANIELA LIND, GERBER K Ot 272.0 07/05/2014 DANIELA LIND, GERBER K Ot 401.9 07/05/2014 DANIELA LIND, GERBER [place] Ot 414.00 08/30/2014 DANIELA LIND, GERBER [place] Ot 153.3 08/30/2014 DANIELA LIND, GERBER [place] Ot 244.9 08/30/2014 DANIELA LIND, GERBER [place] Ot 250.00 08/30/2014 DANIELA LIND, GERBER [place] Ot 272.0 08/30/2014 DANIELA LIND, GERBER K Ot 401.9 08/30/2014 DANIELA LIND, GERBER [place] Ot 414.00 08/30/2014 DANIELA LIND, GERBER [place] Ot V58.69 08/31/2014 DANIELA LIND, GERBER [place] Ot 153.3 08/31/2014 DANIELA LIND, GERBER [place] Ot 244.9 08/31/2014 DANIELA LIND, GERBER [place] Ot 250.00 08/31/2014 DANIELA LIND, GERBER K Ot 272.0 08/31/2014 DANIELA LIND, GERBER K Ot 401.9 08/31/2014 DANIELA LIND, GERBER K Ot 414.00 08/31/2014 DANIELA LIND, GERBER K Ot V58.69 10/02/2014 DANIELA LIND, GERBER K Ot 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 10/02/2014 DANIELA LIND, GERBER [place] Ot 244.9 HYPOTHYROIDISM NOS 10/02/2014 DANIELA LIND, GERBER [place] Ot 250.00 DIAB BRIDGET WO COMPL, TYPE II OR UNSPEC TY 10/02/2014 DANIELA LIND, GERBER [place] Ot 272.0 PURE HYPERCHOLESTEROLEM 10/02/2014 DANIELA LIND, GERBER [place] Ot 401.9 HYPERTENSION NOS 10/02/2014 DANIELA LIND, GERBER K Ot 414.00 CORON ATHEROSCLER NOS TYPE VESSEL, NATIV 10/02/2014 DANIELA LIND, GERBER [place] Ot V58.69 OT MED,LT,CURRENT USE 11/28/2014 DANIELA LIND, GERBER [place] Ot 153.3 11/28/2014 DANIELA LIND, GERBER [place] Ot 244.9 11/28/2014 DANIELA LIND, GERBER [place] Ot 250.00 11/28/2014 DANIELA LIND, GERBER [place] Ot 272.0 11/28/2014 DANIELA LIND, GERBER [place] Ot 401.9 11/28/2014 DANIELA LIND, GERBER [place] Ot 414.00 11/28/2014 DANIELA LIND, GERBER [place] Ot V58.69 11/28/2014 DANIELA LIND, GERBER [place] Ot 153.3 11/28/2014 DANIELA LIND, GERBER [place] Ot 244.9 11/28/2014 DANIELA LIND, GERBER [place] Ot 250.00 11/28/2014 DANIELA LIND, GERBER K Ot 272.0 11/28/2014 DANIELA LIND, GERBER [place] Ot 401.9 11/28/2014 DANIELA LIND, GERBER [place] Ot 414.00 11/28/2014 DANIELA LIND, GERBER K Ot V58.69 12/05/2014 DANIELA LIND, GERBER K Ot 153.3 12/05/2014 DANIELA LIND, GREBER [place] Ot 244.9 12/05/2014 DANIELA LIND, GERBER K Ot 250.00 12/05/2014 DANIELA LIND, GERBER K Ot 272.0 12/05/2014 DANIELA LIND, GERBER K Ot 401.9 12/05/2014 DANIELA LIND, GERBER K Ot 414.00 12/05/2014 DANIELA LIND, GERBER K Ot V58.69 12/06/2014 DANIELA LIND, GERBER [place] Ot 153.3 12/06/2014 DANIELA LIND, GERBER K Ot 244.9 12/06/2014 DANIELA LIND, GERBER K Ot 250.00 12/06/2014 DANIELA LIND, GERBER K Ot 272.0 12/06/2014 DANIELA LIND, GERBER K Ot 401.9 12/06/2014 DANIELA LIND, GERBER K Ot 414.00 12/06/2014 DANIELA LIND, GERBER K Ot V58.69 01/23/2015 DANIELA LIND, GERBER K Ot 153.3 01/23/2015 DANIELA LIND, GERBER [place] Ot 244.9 01/23/2015 DANIELA LIND, GERBER K Ot 250.00 01/23/2015 DANIELA LIND, GERBER K Ot 272.0 01/23/2015 DANIELA LIND, GERBER K Ot 401.9 01/23/2015 DANIELA LIND, GERBER [place] Ot 414.00 01/23/2015 DANIELA LIND, GERBER [place] Ot V58.69 01/25/2015 DANIELA LIND, GERBER [place] Ot 153.3 01/25/2015 DANIELA LIND, GERBER [place] Ot 244.9 01/25/2015 DANIELA LIND, GERBER [place] Ot 250.00 01/25/2015 DANIELA LIND, GERBER [place] Ot 272.0 01/25/2015 DANIELA LIND, GERBER [place] Ot 401.9 01/25/2015 DANIELA LIND, GERBER [place] Ot 414.00 01/25/2015 DANIELA LIND, GERBER [place] Ot V58.69 03/05/2015 DANIELA LIND, GERBER [place] Ot 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 03/05/2015 DANIELA LIND, GERBER [place] Ot 244.9 HYPOTHYROIDISM NOS 03/05/2015 DANIELA LIND, GERBER [place] Ot 250.00 DIAB BRIDGET WO COMPL, TYPE II OR UNSPEC TY 03/05/2015 DANIELA LIND, GERBER [place] Ot 272.0 PURE HYPERCHOLESTEROLEM 03/05/2015 DANIELA LIND, GERBER [place] Ot 401.9 HYPERTENSION NOS 03/05/2015 DANIELA LIND, GERBER [place] Ot 414.00 CORON ATHEROSCLER NOS TYPE VESSEL, NATIV 03/05/2015 DANIELA LIND, GERBER [place] Ot V58.69 OTH MED,LT,CURRENT USE 2015 TED BUCKNER MD Ot E03.9 HYPOTHYROIDISM, UNSPECIFIED 2015 TED BUCKNER MD Ot E11.9 TYPE 2 DIABETES MELLITUS WITHOUT COMPLIC 2015 TED BUCKNER MD Ot I10 ESSENTIAL (PRIMARY) HYPERTENSION 2015 TED BUCKNER MD Ot R07.9 CHEST PAIN, UNSPECIFIED 2015 TED BUCKNER MD Ot Z87.891 PERSONAL HISTORY OF NICOTINE DEPENDENCE 06/05/2015 DANIELA LIND, GERBER [place] Ot 153.3 06/05/2015 DANIELA LIND, GERBER [place] Ot 244.9 06/05/2015 DANIELA LIND, GERBER [place] Ot 250.00 06/05/2015 DANIELA LIND, GERBER [place] Ot 272.0 06/05/2015 DANIELA LIND, GERBER [place] Ot 401.9 06/05/2015 DANIELA LIND, GERBER [place] Ot 414.00 06/05/2015 DANIELA LIND, GERBER [place] Ot V58.69 07/18/2015 DANIELA LIND, GERBER [place] Ot 153.3 07/18/2015 DANIELA MD, GERBER K Ot 244.9 07/18/2015 DANIELA LIND, GERBER [place] Ot 250.00 07/18/2015 DANIELA LIND, GERBER [place] Ot 272.0 07/18/2015 DANIELA LIND, GERBER K Ot 401.9 07/18/2015 DANIELA LIND, GERBER K Ot 414.00 07/18/2015 DANIELA LIND, GERBER K Ot V58.69 08/07/2015 DANIELA LIND, GERBER [place] Ot C18.7 08/07/2015 DANIELA LIND, GERBER [place] Ot E03.9 08/07/2015 DANIELA LIND, GERBER K Ot E11.9 08/07/2015 DANIELA LIND, GERBER K Ot E78.0 08/07/2015 DANIELA LIND, GERBER K Ot I10 08/07/2015 DANIELA LIND, GERBER [place] Ot I25.10 08/07/2015 DANIELA LIND, GERBER [place] Ot Z79.899 08/07/2015 DANIELA LIND, GERBER [place] Ot C18.7 08/07/2015 DANIELA LIND, GERBER [place] Ot E03.9 08/07/2015 DANIELA LIND, GERBER [place] Ot E11.9 08/07/2015 DANIELA LIND, GERBER [place] Ot E78.0 08/07/2015 DANIELA LIND, GERBER [place] Ot I10 08/07/2015 DANIELA LIND, GERBER [place] Ot I25.10 08/07/2015 DANIELA LIND, GERBER [place] Ot Z79.899 09/10/2015 DANIELA LIND, GERBER [place] Ot 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 09/10/2015 DANIELA LIND, GERBER [place] Ot E03.9 HYPOTHYROIDISM, UNSPECIFIED 09/10/2015 DANIELA LIND, GERBER [place] Ot E11.9 TYPE 2 DIABETES MELLITUS WITHOUT COMPLIC 09/10/2015 DANIELA LIND, GERBER [place] Ot E78.0 PURE HYPERCHOLESTEROLEMIA 09/10/2015 DANIELA LIND, GERBER [place] Ot I10 ESSENTIAL (PRIMARY) HYPERTENSION 09/10/2015 DANIELA LIND, GERBER [place] Ot I25.10 ATHSCL HEART DISEASE OF [place] CORONARY 09/10/2015 DANIELA LIND, GERBER [place] Ot Z79.899 OTHER JAIL (CURRENT) DRUG THERAPY 12/04/2015 GERBER SUAREZ MD Ot 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 12/04/2015 DANIELA LIND, GERBER [place] Ot E03.9 HYPOTHYROIDISM, UNSPECIFIED 12/04/2015 DANIELA LIND, GERBER [place] Ot E11.9 TYPE 2 DIABETES MELLITUS WITHOUT COMPLIC 12/04/2015 DANIELA LIND, GERBER [place] Ot E78.0 PURE HYPERCHOLESTEROLEMIA 12/04/2015 GERBER SUAREZ MD Ot I10 ESSENTIAL (PRIMARY) HYPERTENSION 12/04/2015 GERBER SUAREZ MD Ot I25.10 ATHSCL HEART DISEASE OF [place] CORONARY 12/04/2015 DANIELA LIND GERBER [place] Ot Z79.899 OTHER JAIL (CURRENT) DRUG THERAPY 12/12/2015 GERBER SUAREZ MD Ot 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 12/12/2015 GERBER SUAREZ MD Ot E03.9 HYPOTHYROIDISM, UNSPECIFIED 12/12/2015 GERBER SUAREZ MD Ot E11.9 TYPE 2 DIABETES MELLITUS WITHOUT COMPLIC 12/12/2015 GERBER SUAREZ MD Ot E78.0 PURE HYPERCHOLESTEROLEMIA 12/12/2015 GERBER SUAREZ MD Ot I10 ESSENTIAL (PRIMARY) HYPERTENSION 12/12/2015 GERBER SUAREZ MD Ot I25.10 ATHSCL HEART DISEASE OF [place] CORONARY 12/12/2015 DANIELA LIND GERBER [place] Ot Z79.899 OTHER DIETITIAN CONSULTANT (CURRENT) DRUG THERAPY 01/18/2016 Ot 401.9 HYPERTENSION NOS 01/18/2016 Ot 785.2 CARDIAC MURMURS NEC 01/18/2016 Ot 564.00 UNSPEC CONSTIPATION 01/18/2016 Ot 578.1 BLOOD IN STOOL 01/18/2016 Ot 787.91 DIARRHEA 01/18/2016 Ot 789.00 ABDOMINAL PAIN, UNSPECIFIED SITE 01/18/2016 Ot 368.9 VISUAL DISTURBANCE NOS 01/18/2016 Ot 401.9 HYPERTENSION NOS 01/18/2016 Ot 433.30 MULT BILTRAL ARTERY OCCLUSION WO CEREBRA 01/18/2016 Ot 785.9 CARDIOVAS SYS SYMP NEC 01/18/2016 Ot 786.50 CHEST PAIN NOS 01/18/2016 TED BUCKNER MD Ot 719.46 JOINT PAIN-L/LEG 01/18/2016 TED BUCKNER MD Ot 729.5 PAIN IN LIMB 01/18/2016 AURA ESCOBAR MD Ot 715.36 LOC OSTEOARTH NOS-L/LEG 01/18/2016 AURA ESCOBAR MD Ot 780.79 OTH MALAISE FATIGUE 01/18/2016 AURA ESCOBAR MD Ot 791.9 ABN URINE FINDINGS NEC 01/18/2016 AURA ESCOBAR MD Ot V72.63 PRE-PROCEDURAL LABORATORY EXAMINATION 01/18/2016 AURA ESCOBAR MD Ot V72.83 EXAM PRE-OPERATIVE NEC 01/18/2016 AURA ESCOBAR MD Ot V74.8 SCREEN-BACTERIAL DIS NEC 01/18/2016 DEBBIE UQEEN DO Ot V72.84 EXAM PRE-OPERATIVE NOS 01/18/2016 LUZ LIND, AURA Sn[place] Ot 721.3 LUMBOSACRAL SPONDYLOSIS 01/18/2016 ANGE LANDAVERDE MD Ot 272.0 PURE HYPERCHOLESTEROLEM 01/18/2016 ANGE LANDAVERDE MD Ot 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 01/18/2016 ANGE LANDAVERDE MD Ot 397.0 TRICUSPID VALVE DISEASE 01/18/2016 ANGE LANDAVERDE MD Ot 401.9 HYPERTENSION NOS 01/18/2016 ANGE LANDAVERDE MD Ot 434.91 CEREBRAL ART OCCLUSION NOS W CEREBRAL IN 01/18/2016 KLARISSA GUAMAN Ot V76.12 OTH SCREEN MAMMO-MALIGN NEOPLASM OF [place] 01/18/2016 NEGIN KAT MD Ot V72.84 EXAM PRE-OPERATIVE NOS 01/18/2016 GERBER SUAREZ MD Ot 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 01/18/2016 NEGIN KAT MD Ot V72.84 EXAM PRE-OPERATIVE NOS 01/18/2016 NEGIN KAT MD Ot 244.9 HYPOTHYROIDISM NOS 01/18/2016 NEGIN KAT MD Ot 272.0 PURE HYPERCHOLESTEROLEM 01/18/2016 NEGIN KAT MD Ot 401.9 HYPERTENSION NOS 01/18/2016 NEGIN KAT MD Ot 443.9 PERIPH VASCULAR DIS NOS 01/18/2016 NEGIN KAT MD Ot 455.0 INT HEMORRHOID W/O COMPL 01/18/2016 NEGIN KAT MD Ot 455.3 EXT HEMORRHOID W/O COMPL 01/18/2016 NEGIN KAT MD Ot V10.05 HX OF COLONIC MALIGNANCY 01/18/2016 NEGIN KAT MD Ot V12.72 PERSONAL HISTORY OF COLONIC POLYPS 01/18/2016 NEGIN KAT MD Ot V15.82 HISTORY OF TOBACCO USE 01/18/2016 FREDERIC HARVEY Ot 250.00 DIAB BRIDGET WO COMPL, TYPE II OR UNSPEC TY 01/18/2016 FREDERIC HARVEY Ot 272.0 PURE HYPERCHOLESTEROLEM 01/18/2016 FREDERIC HARVEY Ot 401.9 HYPERTENSION NOS 01/18/2016 FREDERIC HARVEY Ot 434.91 CEREBRAL ART OCCLUSION NOS W CEREBRAL IN 01/18/2016 FREDERIC HARVEY Ot 786.50 CHEST PAIN NOS 01/18/2016 TED BUCKNER MD Ot 786.6 CHEST SWELLING/MASS/LUMP 01/18/2016 TED BUCKNER MD Ot V76.12 OTH SCREEN MAMMO-MALIGN NEOPLASM OF [place] 01/18/2016 GERBER SUAREZ MD Ot 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 01/18/2016 GERBER SUAREZ MD Ot E03.9 HYPOTHYROIDISM, UNSPECIFIED 01/18/2016 GERBER SUAREZ MD Ot E11.9 TYPE 2 DIABETES MELLITUS WITHOUT COMPLIC 01/18/2016 GERBER SUAREZ MD Ot E78.0 PURE HYPERCHOLESTEROLEMIA 01/18/2016 GERBER SUAREZ MD Ot I10 ESSENTIAL (PRIMARY) HYPERTENSION 01/18/2016 GERBER SUAREZ MD Ot I25.10 ATHSCL HEART DISEASE OF [place] CORONARY 01/18/2016 GERBER SUAREZ MD Ot Z79.899 OTHER DIETITIAN CONSULTANT (CURRENT) DRUG THERAPY 01/20/2016 PRIYANKA FOX DO Ot E03.9 HYPOTHYROIDISM, UNSPECIFIED 01/20/2016 PRIYANKA FOX DO Ot I10 ESSENTIAL (PRIMARY) HYPERTENSION 01/20/2016 PRIYANKA FOX DO Ot K21.9 GASTRO-ESOPHAGEAL REFLUX DISEASE WITHOUT 01/20/2016 PRIYANKA FOX DO Ot K56.5 INTESTINAL ADHESIONS W OBST (POSTPROCEDU 01/20/2016 PRIYANKA FOX DO Ot K59.00 CONSTIPATION, UNSPECIFIED 01/20/2016 PRIYANKA FOX DO Ot N28.9 DISORDER OF KIDNEY AND URETER, UNSPECIFI 01/22/2016 Ot 401.9 HYPERTENSION NOS 01/22/2016 Ot 785.2 CARDIAC MURMURS NEC 01/22/2016 Ot 564.00 UNSPEC CONSTIPATION 01/22/2016 Ot 578.1 BLOOD IN STOOL 01/22/2016 Ot 787.91 DIARRHEA 01/22/2016 Ot 789.00 ABDOMINAL PAIN, UNSPECIFIED SITE 01/22/2016 Ot 368.9 VISUAL DISTURBANCE NOS 01/22/2016 Ot 401.9 HYPERTENSION NOS 01/22/2016 Ot 433.30 MULT BILTRAL ARTERY OCCLUSION WO CEREBRA 01/22/2016 Ot 785.9 CARDIOVAS SYS SYMP NEC 01/22/2016 Ot 786.50 CHEST PAIN NOS 01/22/2016 DUDLEY LIND, TED Ruiz Ot 719.46 JOINT PAIN-L/LEG 01/22/2016 TED BUCKNER MD Ot 729.5 PAIN IN LIMB 01/22/2016 AURA ESCOBAR MD Ot 715.36 LOC OSTEOARTH NOS-L/LEG 01/22/2016 AURA ESCOBAR MD Ot 780.79 OTH MALAISE FATIGUE 01/22/2016 AURA ESCOBAR MD Ot 791.9 ABN URINE FINDINGS NEC 01/22/2016 AURA ESCOBAR MD Ot V72.63 PRE-PROCEDURAL LABORATORY EXAMINATION 01/22/2016 AURA ESCOBAR MD Ot V72.83 EXAM PRE-OPERATIVE NEC 01/22/2016 AURA ESCOBAR MD Ot V74.8 SCREEN-BACTERIAL DIS NEC 01/22/2016 DEBBIE QUEEN DO Ot V72.84 EXAM PRE-OPERATIVE NOS 01/22/2016 AURA ESCOBAR MD Ot 721.3 LUMBOSACRAL SPONDYLOSIS 01/22/2016 ANGE LANDAVERDE MD Ot 272.0 PURE HYPERCHOLESTEROLEM 01/22/2016 ANGE LANDAVERDE MD Ot 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 01/22/2016 ANGE LANDAVERDE MD Ot 397.0 TRICUSPID VALVE DISEASE 01/22/2016 ANGE LANDAVERDE MD Ot 401.9 HYPERTENSION NOS 01/22/2016 ANGE LANDAVERDE MD Ot 434.91 CEREBRAL ART OCCLUSION NOS W CEREBRAL IN 01/22/2016 KLARISSA GUAMAN Ot V76.12 OTH SCREEN MAMMO-MALIGN NEOPLASM OF [place] 01/22/2016 NEGIN KAT MD Ot V72.84 EXAM PRE-OPERATIVE NOS 01/22/2016 GERBER SUAREZ MD Ot 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 01/22/2016 NEGIN KAT MD Ot V72.84 EXAM PRE-OPERATIVE NOS 01/22/2016 NEGIN KAT MD Ot 244.9 HYPOTHYROIDISM NOS 01/22/2016 NEGIN KAT MD Ot 272.0 PURE HYPERCHOLESTEROLEM 01/22/2016 NEGIN KAT MD Ot 401.9 HYPERTENSION NOS 01/22/2016 NEGIN KAT MD Ot 443.9 PERIPH VASCULAR DIS NOS 01/22/2016 NEGIN KAT MD Ot 455.0 INT HEMORRHOID W/O COMPL 01/22/2016 NEGIN KAT MD Ot 455.3 EXT HEMORRHOID W/O COMPL 01/22/2016 NEGIN KAT MD Ot V10.05 HX OF COLONIC MALIGNANCY 01/22/2016 NEGIN KAT MD Ot V12.72 PERSONAL HISTORY OF COLONIC POLYPS 01/22/2016 NEGIN KAT MD, Ot V15.82 HISTORY OF TOBACCO USE 01/22/2016 FREDERIC HARVEY Ot 250.00 DIAB BRIDGET WO COMPL, TYPE II OR UNSPEC TY 01/22/2016 FREDERIC HARVEY Ot 272.0 PURE HYPERCHOLESTEROLEM 01/22/2016 FREDERIC HARVEY Ot 401.9 HYPERTENSION NOS 01/22/2016 FREDERIC HARVEY Ot 434.91 CEREBRAL ART OCCLUSION NOS W CEREBRAL IN 01/22/2016 FREDERIC HARVEY Ot 786.50 CHEST PAIN NOS 01/22/2016 TED BUCKNER MD Ot 786.6 CHEST SWELLING/MASS/LUMP 01/22/2016 TED BUCKNER MD Ot V76.12 OTH SCREEN MAMMO-MALIGN NEOPLASM OF [place] 01/22/2016 GERBER SUAREZ MD Ot 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 01/22/2016 GERBER SUAREZ MD Ot E03.9 HYPOTHYROIDISM, UNSPECIFIED 01/22/2016 GERBER SUAREZ MD Ot E11.9 TYPE 2 DIABETES MELLITUS WITHOUT COMPLIC 01/22/2016 GERBER SUAREZ MD Ot E78.0 PURE HYPERCHOLESTEROLEMIA 01/22/2016 GERBER SUAREZ MD Ot I10 ESSENTIAL (PRIMARY) HYPERTENSION 01/22/2016 GERBER SUAREZ MD Ot I25.10 ATHSCL HEART DISEASE OF [place] CORONARY 01/22/2016 GERBER SUAREZ MD Ot Z79.899 OTHER JAIL (CURRENT) DRUG THERAPY 01/23/2016 GERBER SUAREZ MD Ot 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 01/23/2016 GERBER SUAREZ MD Ot E03.9 HYPOTHYROIDISM, UNSPECIFIED 01/23/2016 GERBER SUAREZ MD Ot E11.9 TYPE 2 DIABETES MELLITUS WITHOUT COMPLIC 01/23/2016 GERBER SUAREZ MD Ot E78.0 PURE HYPERCHOLESTEROLEMIA 01/23/2016 GERBER SUAREZ MD Ot I10 ESSENTIAL (PRIMARY) HYPERTENSION 01/23/2016 GERBER SUAREZ MD Ot I25.10 ATHSCL HEART DISEASE OF [place] CORONARY 01/23/2016 GERBER SUAREZ MD Ot Z79.899 OTHER DIETITIAN CONSULTANT (CURRENT) DRUG THERAPY 01/29/2016 Ot 401.9 HYPERTENSION NOS 01/29/2016 Ot 785.2 CARDIAC MURMURS NEC 01/29/2016 Ot 564.00 UNSPEC CONSTIPATION 01/29/2016 Ot 578.1 BLOOD IN STOOL 01/29/2016 Ot 787.91 DIARRHEA 01/29/2016 Ot 789.00 ABDOMINAL PAIN, UNSPECIFIED SITE 01/29/2016 Ot 368.9 VISUAL DISTURBANCE NOS 01/29/2016 Ot 401.9 HYPERTENSION NOS 01/29/2016 Ot 433.30 MULT BILTRAL ARTERY OCCLUSION WO CEREBRA 01/29/2016 Ot 785.9 CARDIOVAS SYS SYMP NEC 01/29/2016 Ot 786.50 CHEST PAIN NOS 01/29/2016 TED BUCKNER MD Ot 719.46 JOINT PAIN-L/LEG 01/29/2016 TED BUCKNER MD Ot 729.5 PAIN IN LIMB 01/29/2016 AURA ESCOBAR MD Ot 715.36 LOC OSTEOARTH NOS-L/LEG 01/29/2016 AURA ESCOBAR MD Ot 780.79 OTH MALAISE FATIGUE 01/29/2016 AURA ESCOBAR MD Ot 791.9 ABN URINE FINDINGS NEC 01/29/2016 AURA ESCOBAR MD Ot V72.63 PRE-PROCEDURAL LABORATORY EXAMINATION 01/29/2016 AURA ESCOBAR MD Ot V72.83 EXAM PRE-OPERATIVE NEC 01/29/2016 AURA ESCOBAR MD Ot V74.8 SCREEN-BACTERIAL DIS NEC 01/29/2016 DEBBIE QUEEN DO Ot V72.84 EXAM PRE-OPERATIVE NOS 01/29/2016 AURA ESCOBAR MD Ot 721.3 LUMBOSACRAL SPONDYLOSIS 01/29/2016 ANGE LANDAVERDE MD Ot 272.0 PURE HYPERCHOLESTEROLEM 01/29/2016 ANGE LANDAVERDE MD Ot 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 01/29/2016 ANGE LANDAVERDE MD Ot 397.0 TRICUSPID VALVE DISEASE 01/29/2016 ANGE LANDAVERDE MD Ot 401.9 HYPERTENSION NOS 01/29/2016 ANGE LANDAVERDE MD Ot 434.91 CEREBRAL ART OCCLUSION NOS W CEREBRAL IN 01/29/2016 ROWENAKLARISSA OFFICE MACHINE PUNCH OPERATOR Ot V76.12 OTH SCREEN MAMMO-MALIGN NEOPLASM OF [place] 01/29/2016 NEGIN KAT MD Ot V72.84 EXAM PRE-OPERATIVE NOS 01/29/2016 GERBER SUAREZ MD Ot 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 01/29/2016 NEGIN KAT MD Ot V72.84 EXAM PRE-OPERATIVE NOS 01/29/2016 NEGIN KAT MD Ot 244.9 HYPOTHYROIDISM NOS 01/29/2016 NEGIN KAT MD Ot 272.0 PURE HYPERCHOLESTEROLEM 01/29/2016 NEGIN KAT MD Ot 401.9 HYPERTENSION NOS 01/29/2016 NEGIN KAT MD Ot 443.9 PERIPH VASCULAR DIS NOS 01/29/2016 NEGIN KAT MD Ot 455.0 INT HEMORRHOID W/O COMPL 01/29/2016 NEGIN KAT MD Ot 455.3 EXT HEMORRHOID W/O COMPL 01/29/2016 NEGIN KAT MD Ot V10.05 HX OF COLONIC MALIGNANCY 01/29/2016 NEGIN KAT MD Ot V12.72 PERSONAL HISTORY OF COLONIC POLYPS 01/29/2016 NEGIN KAT MD Ot V15.82 HISTORY OF TOBACCO USE 01/29/2016 FREDERIC HARVEY Ot 250.00 DIAB BRIDGET WO COMPL, TYPE II OR UNSPEC TY 01/29/2016 FREDERIC HARVEY Ot 272.0 PURE HYPERCHOLESTEROLEM 01/29/2016 FREDERIC HARVEY Ot 401.9 HYPERTENSION NOS 01/29/2016 FREDERIC HARVEY Ot 434.91 CEREBRAL ART OCCLUSION NOS W CEREBRAL IN 01/29/2016 FREDERIC HARVEY Ot 786.50 CHEST PAIN NOS 01/29/2016 TED BUCKNER MD Ot 786.6 CHEST SWELLING/MASS/LUMP 01/29/2016 TED BUCKNER MD, Ot V76.12 OTH SCREEN MAMMO-MALIGN NEOPLASM OF [place] 01/29/2016 GERBER SUAREZ MD Ot 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 01/29/2016 GERBER SUAREZ MD Ot E03.9 HYPOTHYROIDISM, UNSPECIFIED 01/29/2016 GERBER SUAREZ MD Ot E11.9 TYPE 2 DIABETES MELLITUS WITHOUT COMPLIC 01/29/2016 GERBER SUAREZ MD Ot E78.0 PURE HYPERCHOLESTEROLEMIA 01/29/2016 GERBER SUAREZ MD Ot I10 ESSENTIAL (PRIMARY) HYPERTENSION 01/29/2016 GERBER SUAREZ MD Ot I25.10 ATHSCL HEART DISEASE OF [place] CORONARY 01/29/2016 GERBER SUAREZ MD Ot Z79.899 OTHER JAIL (CURRENT) DRUG THERAPY 01/29/2016 KLARISSA GUAMAN Ot M25.511 PAIN IN RIGHT SHOULDER 01/29/2016 TED BUCKNER MD, Ot M25.511 PAIN IN RIGHT SHOULDER 02/06/2016 GERBER SUAREZ MD Ot 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 02/06/2016 GERBER SUAREZ MD Ot E03.9 HYPOTHYROIDISM, UNSPECIFIED 02/06/2016 GERBER SUAREZ MD Ot E11.9 TYPE 2 DIABETES MELLITUS WITHOUT COMPLIC 02/06/2016 GERBER SUAREZ MD Ot E78.0 PURE HYPERCHOLESTEROLEMIA 02/06/2016 GERBER SUAREZ MD Ot I10 ESSENTIAL (PRIMARY) HYPERTENSION 02/06/2016 GERBER SUAREZ MD Ot I25.10 ATHSCL HEART DISEASE OF [place] CORONARY 02/06/2016 GERBER SUAREZ MD Ot Z79.899 OTHER DIETITIAN CONSULTANT (CURRENT) DRUG THERAPY 02/18/2016 KLARISSA GUAMAN Ot M25.511 PAIN IN RIGHT SHOULDER 02/19/2016 TED BUCKNER MD, Ot M25.511 PAIN IN RIGHT SHOULDER 03/03/2016 KLARISSA GUAMAN Ot M25.511 PAIN IN RIGHT SHOULDER 03/10/2016 GERBER SUAREZ MD Ot 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 03/10/2016 GERBER SUAREZ MD Ot E03.9 HYPOTHYROIDISM, UNSPECIFIED 03/10/2016 GERBER SUAREZ MD Ot E11.9 TYPE 2 DIABETES MELLITUS WITHOUT COMPLIC 03/10/2016 GERBER SUAREZ MD Ot E78.0 PURE HYPERCHOLESTEROLEMIA 03/10/2016 GERBER SUAREZ MD Ot I10 ESSENTIAL (PRIMARY) HYPERTENSION 03/10/2016 DANIELA LIND, GERBRE [place] Ot I25.10 ATHSCL HEART DISEASE OF [place] CORONARY 03/10/2016 DANIELA LIND, GERBER [place] Ot Z79.899 OTHER DIETITIAN CONSULTANT (CURRENT) DRUG THERAPY 08/18/2016 Ot 564.00 UNSPEC CONSTIPATION 08/18/2016 Ot 578.1 BLOOD IN STOOL 08/18/2016 Ot 787.91 DIARRHEA 08/18/2016 Ot 789.00 ABDOMINAL PAIN, UNSPECIFIED SITE 08/18/2016 Ot 368.9 VISUAL DISTURBANCE NOS 08/18/2016 Ot 401.9 HYPERTENSION NOS 08/18/2016 Ot 433.30 MULT BILTRAL ARTERY OCCLUSION WO CEREBRA 08/18/2016 Ot 785.9 CARDIOVAS SYS SYMP NEC 08/18/2016 Ot 786.50 CHEST PAIN NOS 08/18/2016 DUDLEY LIND, TED Ruiz Ot 719.46 JOINT PAIN-L/LEG 08/18/2016 TED BUCKNER MD Ot 729.5 PAIN IN LIMB 08/18/2016 AURA ESCOBAR MD Ot 715.36 LOC OSTEOARTH NOS-L/LEG 08/18/2016 AURA ESCOBAR MD Ot 780.79 OTH MALAISE FATIGUE 08/18/2016 AURA ESCOBAR MD Ot 791.9 ABN URINE FINDINGS NEC 08/18/2016 AURA ESCOBAR MD Ot V72.63 PRE-PROCEDURAL LABORATORY EXAMINATION 08/18/2016 AURA ESCOBAR MD Ot V72.83 EXAM PRE-OPERATIVE NEC 08/18/2016 AURA ESCOBAR MD Ot V74.8 SCREEN-BACTERIAL DIS NEC 08/18/2016 DEBBIE QUEEN DO Ot V72.84 EXAM PRE-OPERATIVE NOS 08/18/2016 AURA ESCOBAR MD Ot 721.3 LUMBOSACRAL SPONDYLOSIS 08/18/2016 ANGE LANDAVERDE MD Ot 272.0 PURE HYPERCHOLESTEROLEM 08/18/2016 ANGE LANDAVERDE MD Ot 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 08/18/2016 ANGE LANDAVERDE MD Ot 397.0 TRICUSPID VALVE DISEASE 08/18/2016 ANGE LANDAVERDE MD Ot 401.9 HYPERTENSION NOS 08/18/2016 ANGE LANDAVERDE MD Ot 434.91 CEREBRAL ART OCCLUSION NOS W CEREBRAL IN 08/18/2016 KLARISSA GUAMANP Ot V76.12 OTH SCREEN MAMMO-MALIGN NEOPLASM OF [place] 08/18/2016 NEGIN KAT MD Ot V72.84 EXAM PRE-OPERATIVE NOS 08/18/2016 GERBER SUAREZ MD Ot 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 08/18/2016 NEGIN KAT MD, Ot V72.84 EXAM PRE-OPERATIVE NOS 08/18/2016 NEGIN KAT MD Ot 244.9 HYPOTHYROIDISM NOS 08/18/2016 NEGIN KAT MD Ot 272.0 PURE HYPERCHOLESTEROLEM 08/18/2016 NEGIN KAT MD Ot 401.9 HYPERTENSION NOS 08/18/2016 NEGIN KAT MD Ot 443.9 PERIPH VASCULAR DIS NOS 08/18/2016 NEGIN KAT MD Ot 455.0 INT HEMORRHOID W/O COMPL 08/18/2016 NEGIN KAT MD Ot 455.3 EXT HEMORRHOID W/O COMPL 08/18/2016 NEGIN KAT MD Ot V10.05 HX OF COLONIC MALIGNANCY 08/18/2016 NEGIN KAT MD Ot V12.72 PERSONAL HISTORY OF COLONIC POLYPS 08/18/2016 NEGIN KAT MD Ot V15.82 HISTORY OF TOBACCO USE 08/18/2016 FREDERIC HARVEY Ot 250.00 DIAB BRIDGET WO COMPL, TYPE II OR UNSPEC TY 08/18/2016 FREDERIC HARVEY Ot 272.0 PURE HYPERCHOLESTEROLEM 08/18/2016 FREDERIC HARVEY Ot 401.9 HYPERTENSION NOS 08/18/2016 FREDERIC HARVEY Ot 434.91 CEREBRAL ART OCCLUSION NOS W CEREBRAL IN 08/18/2016 FREDERIC HARVEY Ot 786.50 CHEST PAIN NOS 08/18/2016 TED BUCKNER MD Ot 786.6 CHEST SWELLING/MASS/LUMP 08/18/2016 TED BUCKENR MD Ot V76.12 OTH SCREEN MAMMO-MALIGN NEOPLASM OF [place] 08/18/2016 KLARISSA GUAMAN Ot M25.511 PAIN IN RIGHT SHOULDER 08/18/2016 GERBER SUAREZ MD Ot 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 08/18/2016 GERBER SUAREZ MD Ot E03.9 HYPOTHYROIDISM, UNSPECIFIED 08/18/2016 GERBER SUAREZ MD Ot E11.9 TYPE 2 DIABETES MELLITUS WITHOUT COMPLIC 08/18/2016 GERBER SUAREZ MD Ot E78.0 PURE HYPERCHOLESTEROLEMIA * DO NOT USE * 08/18/2016 GERBER SUAREZ MD Ot I10 ESSENTIAL (PRIMARY) HYPERTENSION 08/18/2016 GERBER SUAREZ MD Ot I25.10 ATHSCL HEART DISEASE OF [place] CORONARY 08/18/2016 GERBER SUAREZ MD Ot Z79.899 OTHER JAIL (CURRENT) DRUG THERAPY 08/19/2016 GERBER SUAREZ MD Ot 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 08/19/2016 GERBER SUAREZ MD Ot E03.9 HYPOTHYROIDISM, UNSPECIFIED 08/19/2016 GERBER SUAREZ MD Ot E11.9 TYPE 2 DIABETES MELLITUS WITHOUT COMPLIC 08/19/2016 GERBER SUAREZ MD Ot E78.0 PURE HYPERCHOLESTEROLEMIA * DO NOT USE * 08/19/2016 GERBER SUAREZ MD Ot I10 ESSENTIAL (PRIMARY) HYPERTENSION 08/19/2016 GERBER SUAREZ MD Ot I25.10 ATHSCL HEART DISEASE OF [place] CORONARY 08/19/2016 GERBER SUAREZ MD Ot Z79.899 OTHER DIETITIAN CONSULTANT (CURRENT) DRUG THERAPY 09/01/2016 Ot 564.00 UNSPEC CONSTIPATION 09/01/2016 Ot 578.1 BLOOD IN STOOL 09/01/2016 Ot 787.91 DIARRHEA 09/01/2016 Ot 789.00 ABDOMINAL PAIN, UNSPECIFIED SITE 09/01/2016 Ot 368.9 VISUAL DISTURBANCE NOS 09/01/2016 Ot 401.9 HYPERTENSION NOS 09/01/2016 Ot 433.30 MULT BILTRAL ARTERY OCCLUSION WO CEREBRA 09/01/2016 Ot 785.9 CARDIOVAS SYS SYMP NEC 09/01/2016 Ot 786.50 CHEST PAIN NOS 09/01/2016 TED BUCKNER MD Ot 719.46 JOINT PAIN-L/LEG 09/01/2016 TED BUCKNER MD Ot 729.5 PAIN IN LIMB 09/01/2016 AURA ESCOBAR MD Ot 715.36 LOC OSTEOARTH NOS-L/LEG 09/01/2016 AURA ESCOBAR MD Ot 780.79 OTH MALAISE FATIGUE 09/01/2016 AURA ESCOBAR MD Ot 791.9 ABN URINE FINDINGS NEC 09/01/2016 ARUA ESCOBAR MD Ot V72.63 PRE-PROCEDURAL LABORATORY EXAMINATION 09/01/2016 AURA ESCOBAR MD Ot V72.83 EXAM PRE-OPERATIVE NEC 09/01/2016 AURA ESCOBAR MD Ot V74.8 SCREEN-BACTERIAL DIS NEC 09/01/2016 DEBBIE QUEEN DO Ot V72.84 EXAM PRE-OPERATIVE NOS 09/01/2016 ARUA ESCOBAR MD Ot 721.3 LUMBOSACRAL SPONDYLOSIS 09/01/2016 ANGE LANDAVERDE MD Ot 272.0 PURE HYPERCHOLESTEROLEM 09/01/2016 ANEG LANDAVERDE MD Ot 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 09/01/2016 ANGE LANDAVERDE MD Ot 397.0 TRICUSPID VALVE DISEASE 09/01/2016 ANGE LANDAVERDE MD Ot 401.9 HYPERTENSION NOS 09/01/2016 ANGE LANDAVERDE MD Ot 434.91 CEREBRAL ART OCCLUSION NOS W CEREBRAL IN 09/01/2016 KLARISSA GUAMAN Ot V76.12 OTH SCREEN MAMMO-MALIGN NEOPLASM OF [place] 09/01/2016 NEGIN KAT MD Ot V72.84 EXAM PRE-OPERATIVE NOS 09/01/2016 GERBER SUAREZ MD Ot 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 09/01/2016 NEGIN KAT MD, Ot V72.84 EXAM PRE-OPERATIVE NOS 09/01/2016 NEGIN KAT MD Ot 244.9 HYPOTHYROIDISM NOS 09/01/2016 NEGIN KAT MD Ot 272.0 PURE HYPERCHOLESTEROLEM 09/01/2016 NEGIN KAT MD Ot 401.9 HYPERTENSION NOS 09/01/2016 NEGIN KAT MD Ot 443.9 PERIPH VASCULAR DIS NOS 09/01/2016 NEGIN KAT MD Ot 455.0 INT HEMORRHOID W/O COMPL 09/01/2016 NEGIN KAT MD Ot 455.3 EXT HEMORRHOID W/O COMPL 09/01/2016 NEGIN KAT MD Ot V10.05 HX OF COLONIC MALIGNANCY 09/01/2016 NEGIN KAT MD Ot V12.72 PERSONAL HISTORY OF COLONIC POLYPS 09/01/2016 NEGIN KAT MD Ot V15.82 HISTORY OF TOBACCO USE 09/01/2016 FREDERIC HARVEY Ot 250.00 DIAB BRIDGET WO COMPL, TYPE II OR UNSPEC TY 09/01/2016 FREDERIC HARVEY Ot 272.0 PURE HYPERCHOLESTEROLEM 09/01/2016 FREDERIC HARVEY Ot 401.9 HYPERTENSION NOS 09/01/2016 FREDERIC HARVEY Ot 434.91 CEREBRAL ART OCCLUSION NOS W CEREBRAL IN 09/01/2016 FREDERIC HARVEY Ot 786.50 CHEST PAIN NOS 09/01/2016 TED BUCKNER MD Ot 786.6 CHEST SWELLING/MASS/LUMP 09/01/2016 TED BUCKNER MD Ot V76.12 OTH SCREEN MAMMO-MALIGN NEOPLASM OF [place] 09/01/2016 KLARISSA GUAMAN Ot M25.511 PAIN IN RIGHT SHOULDER 09/01/2016 GERBER SUAREZ MD Ot 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 09/01/2016 DANIELA LIND, GERBER [place] Ot E03.9 HYPOTHYROIDISM, UNSPECIFIED 09/01/2016 GERBER SUAREZ MD Ot E11.9 TYPE 2 DIABETES MELLITUS WITHOUT COMPLIC 09/01/2016 DANIELA LIND, GERBER [place] Ot E78.00 PURE HYPERCHOLESTEROLEMIA, UNSPECIFIED 09/01/2016 DANIELA LIND, GERBER [place] Ot I10 ESSENTIAL (PRIMARY) HYPERTENSION 09/01/2016 DANIELA LIND, GERBER [place] Ot I25.10 ATHSCL HEART DISEASE OF [place] CORONARY 09/01/2016 DANIELA LIND, GERBER [place] Ot Z79.899 OTHER JAIL (CURRENT) DRUG THERAPY 09/02/2016 KLARISSA GUAMAN OFFICE MACHINE PUNCH OPERATOR Ot R05 COUGH 09/02/2016 KLARISSA GUAMANP Ot R07.81 PLEURODYNIA 09/02/2016 KLARISSA GUAMAN OFFICE MACHINE PUNCH OPERATOR Ot Z91.81 HISTORY OF FALLING 09/02/2016 KLARISSA GUAMAN OFFICE MACHINE PUNCH OPERATOR Ot Z99.81 DEPENDENCE ON SUPPLEMENTAL OXYGEN 09/04/2016 KLARISSA GUAMAN OFFICE MACHINE PUNCH OPERATOR Ot R05 COUGH 09/04/2016 KLARISSA GUAMAN OFFICE MACHINE PUNCH OPERATOR Ot R07.81 PLEURODYNIA 09/04/2016 KLARISSA GUAMAN OFFICE MACHINE PUNCH OPERATOR Ot Z91.81 HISTORY OF FALLING 09/04/2016 KLARISSA GUAMAN OFFICE MACHINE PUNCH OPERATOR Ot Z99.81 DEPENDENCE ON SUPPLEMENTAL OXYGEN 09/23/2016 KLARISSA GUAMAN OFFICE MACHINE PUNCH OPERATOR Ot R05 COUGH 09/23/2016 DEBRA GUAMANIE M NADIA Ot R07.81 PLEURODYNIA 09/23/2016 ROWENA KLARISSA Samira OFFICE MACHINE PUNCH OPERATOR Ot Z91.81 HISTORY OF FALLING 09/23/2016 KLAIRSSA GUAMAN Ot Z99.81 DEPENDENCE ON SUPPLEMENTAL OXYGEN 09/28/2016 GERBER SUAREZ MD Ot 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 09/28/2016 GERBER SUAREZ MD Ot E03.9 HYPOTHYROIDISM, UNSPECIFIED 09/28/2016 GERBER SUAREZ MD Ot E11.9 TYPE 2 DIABETES MELLITUS WITHOUT COMPLIC 09/28/2016 GERBER SUAREZ MD Ot E78.00 PURE HYPERCHOLESTEROLEMIA, UNSPECIFIED 09/28/2016 GERBER SUAREZ MD Ot I10 ESSENTIAL (PRIMARY) HYPERTENSION 09/28/2016 GERBER SUAREZ MD, Ot I25.10 ATHSCL HEART DISEASE OF [place] CORONARY 09/28/2016 GERBER SUAREZ MD, Ot Z79.899 OTHER JAIL (CURRENT) DRUG THERAPY 10/06/2016 HOMAR AGUILERA MD, Ot Z12.31 ENCNTR SCREEN MAMMOGRAM FOR MALIGNANT NE 10/07/2016 HOMAR AGUILERA MD, Ot Z12.31 ENCNTR SCREEN MAMMOGRAM FOR MALIGNANT NE 10/29/2016 HOMAR AGUILERA MD, Ot Z12.31 ENCNTR SCREEN MAMMOGRAM FOR MALIGNANT NE Procedures Code Description Performed By Performed On 45.16 ESOPHAGOGASTRODUODENOSCOPY [EGD] W/CLOSE 04/10/2011 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 Visit Date/Time Discharge Status Pt. Type Provider Facility Loc./Unit Complaint [id number] 10/28/2016 13:59:00 2016 15:47:00 DIS Emergency PEPE MORALES [facility] ER FALL / R ARM [id number] 12/11/2015 12:33:00 2015 00:01:00 DIS Outpatient GERBER SUAREZ MD [facility] ONC [id number] 02/14/2016 13:09:00 2015 15:10:00 DIS Outpatient TED BUCKNER MD [facility] REHAB R SHOULDER PAIN [id number] 01/19/2016 01:29:00 2015 14:10:00 DIS Inpatient PRIYANKA FOX DO [facility] 4TH SMALL BOWEL OBSTRUCTION DUE TO ADHESIONS [id number] 06/12/2015 12:48:00 2014 23:59:59 CLS Outpatient GERBER SUAREZ MD [facility] ONC [id number] 05/23/2015 10:10:00 2014 12:30:00 DIS Inpatient TED BUCKNER MD [facility] CSD CHEST PAIN [id number] 12/05/2014 12:51:00 2014 00:01:00 DIS Outpatient GERBER SUAREZ MD [facility] ONC [id number] 09/14/2014 10:04:00 2014 23:59:59 CLS Outpatient TED BUCKNER MD [facility] RAD SCREENING,L CHEST WALL NODULE [id number] 07/04/2014 13:34:00 2013 23:59:59 CLS Outpatient GERBER SUAREZ MD [facility] ONC [id number] 05/16/2014 07:58:00 2013 23:59:59 CLS Outpatient FREDERIC HARVEY [facility] CARD CVA,CP,HTN,NIDDM [id number] 05/02/2014 08:25:00 2013 23:59:59 CLS Outpatient NEGIN KAT MD [facility] SDC HX POLYPS [id number] 04/26/2014 07:36:00 2013 23:59:59 CLS Outpatient NEGIN KAT MD [facility] PREOP HX POLYPS [id number] 01/01/2014 14:29:00 2013 00:01:00 DIS Outpatient GERBER SUAREZ MD [facility] ONC [id number] 12/21/2013 09:24:00 2013 23:59:59 CLS Outpatient GERBER SUAREZ MD [facility] RAD HX OF COLON [place] [id number] 09/04/2013 14:06:00 2013 00:01:00 DIS Outpatient DANIELA LIND, GERBER [place] [facility] ONC [id number] 10/02/2013 10:04:00 2013 19:35:00 DIS Inpatient DUDLEY LIND, TED Ruiz [facility] CSD CHEST PAIN [id number] 08/16/2013 08:08:00 2013 12:10:00 DIS Outpatient NEGIN KAT MD [facility] SDC HISTORY OF POLYPS [id number] 08/09/2013 07:17:00 2013 23:59:59 CLS Outpatient NEGIN KAT MD [facility] PREOP HISTORY OF POLYPS [id number] 07/19/2013 12:29:00 2012 23:59:59 CLS Outpatient ANGE LANDAVERDE MD [facility] CARD CVA,HTN,HYPOTHYROIDISM [id number] 07/07/2013 12:37:00 2012 23:59:59 CLS Outpatient KLARISSA GUAMAN [facility] RAD SCREENING [id number] 04/20/2013 13:39:00 2012 23:59:59 CLS Outpatient AURA ESCOBAR MD [facility] RAD RT RADICULOPATHY [id number] 04/11/2013 10:46:00 2012 16:15:00 DIS Outpatient DEBBIE QUEEN DO [facility] SDC BLOOD IN STOOLS [id number] 04/06/2013 07:11:00 2012 23:59:59 CLS Outpatient DEBBIE QUEEN DO [facility] PREOP BLOOD IN STOOLS [id number] 01/13/2013 11:44:00 2012 11:50:00 DIS Inpatient PRIYANKA BAH MD [facility] IRF POST OP KNEE REPLACEMENT [id number] 01/11/2013 08:46:00 2012 11:43:00 DIS Inpatient AURA ESCOBAR MD [facility] SURGICAL SEVERE ARTHRITIS RIGHT KNEE [id number] 01/04/2013 08:14:00 2012 23:59:59 CLS Outpatient LUZ LIND, AURA Snider [facility] PREOP RT KNEE SEVERE OSTEOARTHRITIS [id number] 12/08/2012 15:53:00 2012 23:59:59 CLS Outpatient DUDLEY LIND, TED Ruiz [facility] RAD KNEE PAIN,LEG PAIN [id number] 10/06/2016 10:00:00 ACT Outpatient ALE LIND, HOMAR Khan [facility] RAD SCREENING [id number] 09/01/2016 11:17:00 ACT Outpatient KLARISSA GUAMANP [facility] RAD COUGH,FALL,RT RIB PAIN [id number] 08/18/2016 12:58:00 ACT Outpatient DANIELA LIND, GERBER [place] [facility] ONC [id number] 01/22/2016 08:21:00 ACT Outpatient KLARISSA GUAMANP [facility] RAD R SHOULDER PAIN [id number] 01/18/2016 20:30:00 Document Registration [id number] 01/18/2016 20:30:00 Document Registration [id number] 01/18/2016 20:30:00 Document Registration [id number] 03/04/2013 10:44:00 Document Registration [id number] 09/30/2011 09:48:00 Document Registration [id number] 09/14/2011 10:38:00 Document Registration [id number] 08/13/2011 08:06:00 Document Registration [id number] 08/05/2011 13:45:00 Document Registration [id number] 04/09/2011 13:18:00 Document Registration [id number] 03/27/2011 08:44:00 Document Registration [id number] 01/01/2011 12:34:00 Document Registration
== END 2016-10-28 15:47 | disposition home or self-care (01) ==
LOC: EDUNIT# 13:56 → ER 13:59
DX: S42.351A Displaced comminuted fracture of shaft of humerus, right arm, initial encounter for closed fracture (principal); Z79.82 Long term (current) use of aspirin; Z79.899 Other long term (current) drug therapy; W01.0XXA Fall on same level from slipping, tripping and stumbling without subsequent striking against object, initial encounter; Y92.512 Supermarket, store or market as the place of occurrence of the external cause; Y99.8 Other external cause status
CPT/HCPCS: 73030; 73060; 99283

== ENCOUNTER 2018-02-11 05:36 | Inpatient (IN) | payer MEDICARE, OTHER ==
[~2018-02-11] VITALS: Ht 154.9 cm; Wt 51.5 kg
[~2018-02-11 05:36] MED LIST changes: +ACHD5005 PO; +AMLO5TAB2 PO
--- NOTE | 2018-02-11 06:13 | ED Fall/Injury ---
General Chief Complaint: Trauma-Non Activation Stated Complaint: FALL Nursing Triage Note: PT PRESENTS TO ER WITH COMPLAINT OF HIP PAIN AND HEAD PAIN AFTER FALLING YESTERDAY EVENING. Source: patient, other (friend) Exam Limitations: no limitations History of Present Illness Date Seen by Provider: Feb 11, 2018 Time Seen by Provider: 06:09 Initial Comments This 87-year-old white female presents after falling yesterday evening sustaining trauma to the occiput and to her right hip. The patient fell backwards as she was walking up the steps to her house hitting the back of her head and right hip. The patient is complaining of pain over the right hip. Although she's been able to weight-bear the walking increases her discomfort. The patient denies loss of consciousness with her head trauma. The patient denies associated paresthesias or weakness in the extremities. She has mild neck tenderness in the paraspinous area. She has no remarkable pain in the rest of her back. The patient's having some mild problems with cognition. She is unable to offer a fall and helpful history. Patient's neighbor who brought the patient to the emergency department and sees the patient frequently states that the patient suffers from dementia. She functions reasonably well in her home. She seems unchanged to the neighbor. Allergies and Home Medications Allergies Coded Allergies: Sulfa (Sulfonamide Antibiotics) (Verified Allergy, Unknown, 03/04/13) Home Medications Amlodipine Besylate 5 Mg Tablet, 5 MG PO DAILY, (Reported) Aspirin 325 Mg Tab, 325 MG PO HS, (Reported) Atenolol 50 Mg Tablet, 50 MG PO DAILY, (Reported) Cholecalciferol (Vitamin D3) 400 Unit Tablet, 400 UNIT PO DAILY, (Reported) Folic Acid/Mv,Fe,Other Min 1 Each Tablet, 1 TAB PO DAILY, (Reported) Hydrocodone Bit/Acetaminophen 1 Each Tablet, 1 EACH PO Q4H PRN for PAIN Prescribed by: PEPE TAMEZ on 10/28/16 1500 Krill/Om-3/Dha/Epa/Phospho/Ast 1 Each Capsule, 1 CAP PO HS, (Reported) Levothyroxine Sodium 75 Mcg Tablet, 75 MCG PO HS, (Reported) Patient Home Medication List Home Medication List Reviewed: Yes Review of Systems Constitutional: No chills; dizziness; No fever; weakness Eyes: Denies Blindness, Denies Blurred Vision, Denies Photophobia, Denies Vision Changes Ears, Nose, Mouth, Throat: denies ear pain, denies nose pain, denies epistaxis , denies mouth pain Respiratory: No cough, No short of breath Cardiovascular: No chest pain, No palpitations Gastrointestinal: No abdominal pain, No nausea, No vomiting Genitourinary: dysuria : No Musculoskeletal: see HPI, neck pain Skin: No lumps, No rash; other (patient denies abrasions from her fall.) Psychiatric/Neurological: See HPI, Other (mild dementia according to the neighbor) Past Mkpajbi-Qjvvrj-Elfppb Hx Past Med/Social Hx: Reviewed Nursing Past Med/Soc Hx Patient Social History Alcohol Use: Denies Use Recreational Drug Use: No Smoking Status: Current Everyday Smoker 2nd Hand Smoke Exposure: No Recent Foreign Travel: No Contact w/Someone Who Travel: No Recent Infectious Disease Expo: No Recent Hopitalizations: No Immunizations Up To Date Tetanus Booster (TDap): Unknown PED Vaccines UTD: No Date of Pneumonia Vaccine: May 02, 2013 Date of Influenza Vaccine: May 02, 2013 Seasonal Allergies Seasonal Allergies: No Past Medical History Surgeries: Yes (RIGHT KNEE AND LEFT HIP REPLACEMENTS) Gallbladder, Hysterectomy, Joint Replacement, Orthopedic Respiratory: Yes (AT AGE 7 ) Pneumonia Cardiac: Yes Heart Murmur, Hypertension, Valvular Heart Disease Neurological: No Reproductive Disorders: No Bladder Infection Gastrointestinal: Yes Obstructive Bowel, Chronic Constipation, Polyps Musculoskeletal: Yes (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) Arthritis Endocrine: Yes Hypothyroidsim Cataract Hearing Impairment: Hard of Hearing 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 0.0oz. [id number]; 26.8 BMI Method:Stated General Appearance: WD/WN, no apparent distress HEENT: normal ENT inspection Neck: supple Cardiovascular: normal peripheral pulses, regular rate, rhythm Respiratory: chest non-tender, lungs clear, normal breath sounds Gastrointestinal: normal bowel sounds, non tender, soft Back: normal inspection, no CVA tenderness, no vertebral tenderness Extremities: normal range of motion, other Neurologic/Psychiatric: no motor/sensory deficits, alert, normal mood/affect, oriented x 3, other (patient is not able to offer a full complete history. She demonstrates no hallucinations, delusions, or flight of ideas.) Skin: normal color, warm/dry; No rash Minerva Coma Score Best Eye Response: (4) Open Spontaneously Best Verbal Response: (5) Oriented Best Motor Response: (6) Obeys Commands Minerva Total: 15 Progress/Results/Core Measures Results/Orders Lab Results Laboratory Tests Test 02/11/18 05:54 Range/Units White Blood Count 11.5 H 4.3-11.0 10^3/uL Red Blood Count 4.15 L 4.35-5.85 10^6/uL Hemoglobin 13.5 11.5-16.0 G/DL Hematocrit 40 35-52 % Mean Corpuscular Volume 96 80-99 FL Mean Corpuscular Hemoglobin 33 25-34 PG Mean Corpuscular Hemoglobin Concent 34 32-36 G/DL Red Cell Distribution Width 14.1 10.0-14.5 % Platelet Count 173 130-400 10^3/uL Mean Platelet Volume 10.4 7.4-10.4 FL Neutrophils (%) (Auto) 76 H 42-75 % Lymphocytes (%) (Auto) 13 12-44 % Monocytes (%) (Auto) 7 0-12 % Eosinophils (%) (Auto) 4 0-10 % Basophils (%) (Auto) 1 0-10 % Neutrophils # (Auto) 8.8 H 1.8-7.8 X 10^3 Lymphocytes # (Auto) 1.5 1.0-4.0 X 10^3 Monocytes # (Auto) 0.8 0.0-1.0 X 10^3 Eosinophils # (Auto) 0.5 H 0.0-0.3 10^3/uL Basophils # (Auto) 0.1 0.0-0.1 10^3/uL Sodium Level 138 135-145 MMOL/L Potassium Level 3.8 3.6-5.0 MMOL/L Chloride Level 107 98-107 MMOL/L Carbon Dioxide Level 19 L 21-32 MMOL/L Anion Gap 12 5-14 MMOL/L Blood Urea Nitrogen 19 H 7-18 MG/DL Creatinine 0.94 0.60-1.30 MG/DL Estimat Glomerular Filtration Rate 56 BUN/Creatinine Ratio 20 Glucose Level 145 H 70-105 MG/DL Calcium Level 9.2 8.5-10.1 MG/DL Total Bilirubin 1.0 0.1-1.0 MG/DL Aspartate Amino Transf (AST/SGOT) 26 5-34 U/L Alanine Aminotransferase (ALT/SGPT) 20 0-55 U/L Alkaline Phosphatase 73 40-136 U/L Total Protein 6.9 6.4-8.2 GM/DL Albumin 4.2 3.2-4.5 GM/DL Thyroid Stimulating Hormone (TSH) 14.86 H 0.35-4.94 UIU/ML Free Thyroxine 0.89 0.70-1.48 NG/DL My Orders Orders - MACIEL BELLO MD Fentanyl Injection (Sublimaze Injection (02/11/18 07:30) Mri Pelvis W/O Contrast (02/11/18 07:31) Medications Given in ED Current Medications Medications Dose Ordered Sig/Cindy Route Start Time Stop Time Status Last Admin Dose Admin Fentanyl Citrate 50 mcg ONCE ONCE IVP 02/11/18 07:30 02/11/18 07:31 DC 02/11/18 07:46 50 MCG Vital Signs/I&O 02/11/18 02/11/18 05:41 05:41 Temp 98.4 98.4 Pulse 102 102 Resp 20 20 B/P (MAP) 143/76 (98) 143/76 (98) Pulse Ox 93 93 O2 Delivery Room Air Room Air Blood Pressure Mean: 98 Progress Progress Note : Time: 07:07 Progress Note The patient's CT studies from her head to her pelvis demonstrated no evidence of acute pathology. Patient's laboratory evaluation sans urinalysis was essentially unremarkable. The patient was unable walk 4 steps without significant assistance. I believe she would be a fall risk if I send her home where she lives alone. 7:48 am Radiology called back and said that there was a fracture of the right SI joint. An MRI of the pelvis was ordered. I discussed the presentation with Dr. Lang who was kind enough to admit the patient. Ortho (Dr. GREEN) was consulted. Patient was given 50 g of fentanyl IV. Departure Communication (Admissions) Time/Spoke to Admitting Phy: 07:49 Dr. Nelson Time/Spoke to Consulting Phy: 07:50 Dr. Green Impression Primary Impression: Fracture, pelvis closed Qualified Codes: S32.9XXA - Fracture of unspecified parts of lumbosacral spine and pelvis, initial encounter for closed fracture Disposition: ADMITTED INPATIENT Condition: Improved Admissions Decision to Admit Reason: Admit from ER (General) Decision to Admit/Date: Feb 11, 2018 Time/Decision to Admit Time: 07:51 Departure-Patient Inst. Referrals: HOMAR AGUILERA MD (PCP/Family) Primary Care Physician MACIEL BELLO MD Feb 11, 2018 06:13
[2018-02-11 06:14] LABS: BASOPHILS # (AUTO) 0.1 10^3/uL (0.0-0.1); BASOPHILS % (AUTO) 1 % (0-10); EOSINOPHILS # (AUTO) 0.5 10^3/uL (0.0-0.3); EOSINOPHILS % (AUTO) 4 % (0-10); HEMATOCRIT 40 % (35-52); HEMOGLOBIN 13.5 G/DL (11.5-16.0); LYMPHOCYTES # (AUTO) 1.5 X 10^3 (1.0-4.0); LYMPHOCYTES % (AUTO) 13 % (12-44); MEAN CORPUSCULAR HEMOGLOBIN 33 PG (25-34); MEAN CORPUSCULAR HGB CONC 34 G/DL (32-36); MEAN CORPUSCULAR VOLUME 96 FL (80-99); MEAN PLATELET VOLUME 10.4 FL (7.4-10.4); MONOCYTES # (AUTO) 0.8 X 10^3 (0.0-1.0); MONOCYTES % (AUTO) 7 % (0-12); NEUTROPHILS # (AUTO) 8.8 X 10^3 (1.8-7.8); NEUTROPHILS % (AUTO) 76 % (42-75); PLATELET COUNT 173 10^3/uL (130-400); RED BLOOD COUNT 4.15 10^6/uL (4.35-5.85); RED CELL DISTRIBUTION WIDTH 14.1 % (10.0-14.5); WHITE BLOOD COUNT 11.5 10^3/uL (4.3-11.0)
[2018-02-11 06:26] LABS: ALBUMIN 4.2 GM/DL (3.2-4.5); CALCIUM 9.2 MG/DL (8.5-10.1); CREATININE SERUM 0.94 MG/DL (0.60-1.30); POTASSIUM 3.8 MMOL/L (3.6-5.0); TOTAL PROTEIN 6.9 GM/DL (6.4-8.2)
[2018-02-11 06:47] LABS: FREE T4 (FREE THYROXINE) 0.89 NG/DL (0.70-1.48)
[2018-02-11] MEDS ORDERED: fentaNYL INJECTION 100 MCG/2 ML AMP IVP ONE (07:30)
--- NOTE | 2018-02-11 07:40 | Diagnostic Imaging Report ---
PROCEDURE: CT chest, abdomen, and pelvis without contrast. TECHNIQUE: Multiple contiguous axial images were obtained through the chest, abdomen, and pelvis without the use of intravenous contrast. INDICATION: Recent fall. Pain. Comparison: 01/18/2016 Findings: CT chest: Evaluation of the lung crawford demonstrates no focal consolidation, pleural effusion, nor pneumothorax. There is a 4 mm subpleural micronodule within the posterior margins superior segment of the left lower lobe (image 32, series 2). 3 mm micronodule is present within the right upper lobe (image 23, series 2). Small 3 mm micronodules also noted within the lateral segment of the right middle lobe (image 34, series 2). Finally, punctate subpleural micronodule seen within the lateral margins of the left lower lobe and measures approximately 2 mm (image 45, series 2). Cardio mediastinal structures show normal heart size. There is no large pericardial effusion. There is advanced calcified coronary atherosclerosis. Note is also made of diffuse calcified aortic atherosclerosis. No pathologically enlarged or morphologically abnormal adenopathy is seen within the mediastinum, mitchell, nor axilla on this noncontrast exam. Osseous structures show age-related degenerative changes. No lytic or blastic bony lesions are identified. CT abdomen: Normal appendix cannot be adequately identified, but there is no pericecal inflammation. Small bowel loops are nondistended. Bilateral nonobstructive renal calculi are noted and are likely vascular in nature. Otherwise, kidneys, adrenal glands, spleen, pancreas, and liver have an unremarkable noncontrast CT appearance. There is no loculated fluid collection, free fluid, nor free air within the abdomen. No abnormal mesenteric or retroperitoneal adenopathy is seen. There is diffuse calcified aortic and arterial atherosclerosis. Bony structures show no acute abnormalities. CT pelvis: Evaluation of the osseous structures demonstrates acute fracture extending through the posterior superior margins of the right iliac near the SI joint (image 83, series 2). No other definite acute pelvic fractures are identified, although evaluation is somewhat obscured by metallic artifact from previous left hip replacement. Urinary bladder is also heavily obscured. No calculi are seen within the urinary bladder. There is no loculated fluid collection, free fluid, nor free air within the pelvis. No large abnormal adenopathy is seen. Impression: 1. Acute appearing fracture of the right iliac near the SI joint. May want to consider MRI of the pelvis to assess for additional occult fractures. This is not discussed on [facility] report. Discrepancy will be called. 2. Advanced diffuse calcified aortic, coronary, and arterial atherosclerosis. 3. Multiple small micronodules within both lungs. If patient is in a high-risk category such as history of smoking, could consider one-year followup to ensure stability. Alternatively, if patient is in a low-risk category, no further followup may be indicated. Report was faxed/called to Dr. Solorzano by gavin at 7:39 am. RASHIDA Mccabe, was also notified. Dictated by: Dictated on workstation # [id number]
--- NOTE | 2018-02-11 07:45 | Diagnostic Imaging Report ---
PROCEDURE: CT head and CT cervical spine without contrast. TECHNIQUE: Multiple contiguous axial images were obtained through the brain and cervical spine without the use of intravenous contrast. Sagittal and coronal reformations through the cervical spine were then performed. INDICATION: Head pain. Recent fall. COMPARISON: MR brain dated 08/05/2011. FINDINGS: CT head: The ventricles and cortical sulci are diffusely prominent, compatible with age-related volume loss. There are confluent areas of abnormal, low attenuation in the periventricular white matter. This is consistent with chronic small vessel ischemic changes. There is no midline shift or mass-effect. No acute intra-axial hemorrhage is seen. There are no abnormal areas of increased or decreased density to suggest acute hemorrhage or edema. No extra-axial masses or collections are present. Soft tissue hematoma is noted posteriorly, midline. Underlying bony calvarium is intact. The visualized paranasal sinuses are unremarkable. The mastoid air cells are clear. CT cervical spine: Evaluation of static alignment demonstrates reversal of normal lordotic curvature epicentered at the C5 level. There is also slight grade 1 anterolisthesis of C3-C4 and C4-C5. There is no evidence of jumped facets. Vertebral body heights are maintained. There is no evidence of acute fracture. No bony fragments are seen within the spinal canal. There are moderate multilevel degenerative changes consisting of intervertebral disc height loss with anterior and posterior disc osteophyte complex formations and multilevel facet arthropathy. These changes appear greatest at the C5-C6 level. Pre-and paravertebral soft tissue structures are unremarkable. Note is made of significant calcified carotid atherosclerosis. Included portions of lung apices are unremarkable. IMPRESSION: 1. No acute intracranial abnormality. No CT evidence of mass, acute infarct or intracranial hemorrhage. 2. Chronic small vessel ischemic changes in deep white matter. 3. No CT evidence of acute fracture or dislocation of cervical spine. 4. Moderate multilevel degenerative changes, greatest at C5-C6 level. 5. Moderate calcified carotid atherosclerosis. Dictated by: Dictated on workstation # [id number]
--- OUTSIDE RECORDS SUMMARY | 2018-02-11 08:07 | XMS REPORT | Continuity of Care Document ---
Author Author [facility] Organization [facility] Address Unknown Phone Unavailable Allergies Active Description Code Type Severity Reaction Onset Reported/Identified Relationship to Patient Clinical Status Yes Sulfa (Sulfonamide Antibiotics) [id number] Drug Allergy Unknown N/A 2012 Medications There is no data. 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 09/30/2011 Ot 401.9 HYPERTENSION NOS 09/30/2011 Ot 426.4 RT BUNDLE BRANCH BLOCK 09/30/2011 Ot 433.10 CAROTID ARTERY OCCLUSION W O CEREBRAL IN 09/30/2011 Ot 440.0 AORTIC ATHEROSCLEROSIS 09/30/2011 Ot V12.54 PERSONAL HX OF TIA, CEREBRAL INFARCTION 09/30/2011 Ot V58.66 LONG-TERM ( CURRENT) USE OF ASPIRIN 09/30/2011 Ot V58.69 OTH MED,LT, CURRENT USE 01/13/2013 AURA ESCOBAR MD Ot 244.9 [...] NOS 03/06/2013 Ot 414.01 CORONARY ATHEROSCLEROSIS OF [place] CORON 03/06/2013 Ot 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 [...] Ot 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 10/02/2013 TED BUCKNER MD Ot 397.0 TRICUSPID VALVE DISEASE 10/02/2013 TED BUCKNER MD Ot 401.9 HYPERTENSION NOS 10/02/2013 TED BUCKNER MD Ot 414.01 CORONARY ATHEROSCLEROSIS OF [place] CORON 10/02/2013 TED BUCKNER MD Ot 426.4 RT BUNDLE BRANCH BLOCK 10/02/2013 TED BUCKNER MD Ot 427.61 ATRIAL PREMATURE BEATS 10/02/2013 TED BUCKNER MD Ot 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 10/02/2013 TED BUCKNER MD Ot 433.10 CAROTID ARTERY OCCLUSION W O CEREBRAL IN 10/02/2013 DUDLEY MD, TED A Ot 443.9 PERIPH VASCULAR DIS NOS 10/02/2013 [...] SUAREZ MD Ot 244.9 HYPOTHYROIDISM NOS 12/03/2013 GERBER SUAREZ MD Ot 250.00 DIAB BRIDGET WO COMPL, TYPE II OR UNSPEC TY 12/03/2013 GERBER SUAREZ MD Ot 272.0 PURE HYPERCHOLESTEROLEM 12/03/2013 GERBER SUAREZ MD Ot 401.9 HYPERTENSION NOS 12/03/2013 GERBER SUAREZ MD Ot 414.00 CORON ATHEROSCLER NOS TYPE VESSEL, NATIV 03/05/2014 GERBER SUAREZ MD Ot 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 03/05/2014 GERBER SUAREZ MD Ot 244.9 HYPOTHYROIDISM NOS 03/05/2014 GERBER SUAREZ MD Ot 250.00 DIAB BRIDGET WO COMPL, [...] 06/26/2014 GERBER SUAREZ MD Ot 250.00 06/26/2014 DANIELA LIND, GERBER [place] Ot 272.0 06/26/2014 DANIELA LIND, GERBER [place] Ot 401.9 06/26/2014 DANIELA LIND, GERBER [place] Ot 414.00 07/04/2014 DANIELA LIND, GERBER [place] Ot 153.3 07/04/2014 DANIELA LIND, GERBER [place] Ot 244.9 07/04/2014 DANIELA LIND, GERBER [place] Ot 250.00 07/04/2014 DANIELA LIND, GERBER [place] Ot 272.0 07/04/2014 DANIELA LIND, GERBER [place] Ot 401.9 07/04/2014 DANIELA LIND, GERBER [place] Ot 414.00 07/05/2014 DANIELA LIND, GERBER [place] Ot 153.3 07/05/2014 DANIELA LIND, GERBER K Ot 244.9 07/05/2014 DANIELA LIND, GERBER [place] Ot 250.00 07/05/2014 DANIELA LIND, GERBER [place] Ot 272.0 07/05/2014 DANIELA LIND, GERBER [place] Ot 401.9 07/05/2014 DANIELA LIND, GEBRER [place] Ot 414.00 08/30/2014 DANIELA LIND, GERBER [place] Ot 153.3 08/30/2014 DANIELA LIND, GERBER [place] Ot 244.9 08/30/2014 DANIELA LIND, GERBER [place] Ot 250.00 08/30/2014 DANIELA LIND, GERBER [place] Ot 272.0 08/30/2014 DANIELA LIND, GERBER [place] Ot 401.9 08/30/2014 DANIELA LIND, GERBER [place] Ot 414.00 08/30/2014 DANIELA LIND, GERBER [place] Ot V58.69 08/31/2014 DANIELA LIND, GERBER [place] Ot 153.3 08/31/2014 DANIELA LIND, GERBER [place] Ot 244.9 08/31/2014 DANIELA LIND, GERBER [place] Ot 250.00 08/31/2014 DANIELA LIND, GERBER [place] Ot 272.0 08/31/2014 DANIELA LIND, GERBER [place] Ot 401.9 08/31/2014 DANIELA LIND, GERBER [place] Ot 414.00 08/31/2014 DANIELA LIND, GERBER K [...] 401.9 HYPERTENSION NOS 10/02/2014 DANIELA LIND, GERBER [place] Ot 414.00 CORON ATHEROSCLER NOS TYPE VESSEL, NATIV 10/02/2014 DANIELA LIND, GERBER [place] Ot V58.69 OT MED,LT,CURRENT USE 11/28/2014 DANIELA LIND, GERBER [place] Ot 153.3 11/28/2014 DANIELA LIND, GERBER [place] Ot 244.9 11/28/2014 DANIELA LIND, GERBER [place] Ot 250.00 11/28/2014 DANIELA LIND, GERBER [place] Ot 272.0 11/28/2014 DANIELA LIND, GERBER [place] Ot 401.9 11/28/2014 DANIELA LIND, GERBER [place] Ot 414.00 11/28/2014 DANIELA LIND, GERBER [place] Ot V58.69 11/28/2014 DANIELA LIND, GERBER [place] Ot 153.3 11/28/2014 DANIELA LIND, GERBER [place] Ot 244.9 11/28/2014 DANIELA LIND, GERBER [place] Ot 250.00 11/28/2014 DANIELA LIND, GERBER [place] Ot 272.0 11/28/2014 DANIELA LIND, GERBER [place] Ot 401.9 11/28/2014 DANIELA LIND, GERBER [place] Ot 414.00 11/28/2014 DANIELA LIND, GERBER [place] Ot V58.69 12/05/2014 DANIELA LIND, GERBER [place] Ot 153.3 12/05/2014 DANIELA LIND, GERBER [place] Ot 244.9 12/05/2014 DANIELA LIND, GERBER [place] Ot 250.00 12/05/2014 DANIELA LIND, GERBER [place] Ot 272.0 12/05/2014 DANIELA LIND, GERBER [place] Ot 401.9 12/05/2014 DANIELA LIND, GERBER [place] Ot 414.00 12/05/2014 DANIELA LIND, GERBER [place] Ot V58.69 12/06/2014 DANIELA LIND, GERBER [place] Ot 153.3 12/06/2014 DANIELA LIND, GERBER [place] Ot 244.9 12/06/2014 DANIELA LIND, GERBER [place] Ot 250.00 12/06/2014 DANIELA LIND, GERBER [place] Ot 272.0 12/06/2014 DANIELA LIND, GERBER [place] Ot 401.9 12/06/2014 DANIELA LIND, GERBER [place] Ot 414.00 12/06/2014 DANIELA LIND, GERBER [place] Ot V58.69 01/23/2015 DANIELA LIND, GERBER [place] Ot 153.3 01/23/2015 DANIELA LIND, GERBER [place] Ot 244.9 01/23/2015 DANIELA LIND, GERBER [place] Ot 250.00 01/23/2015 DANIELA LIND, GERBER [place] Ot 272.0 01/23/2015 DANIELA LIND, GERBER [place] Ot 401.9 01/23/2015 DANIELA LIND, GERBER [place] Ot 414.00 01/23/2015 DANIELA LIND, GERBER [place] Ot V58.69 01/25/2015 DANIELA LIND, GERBER [place] Ot 153.3 01/25/2015 DANIELA LIND, GERBER [place] [...] COMPL, TYPE II OR UNSPEC TY 03/05/2015 GERBER SUAREZ MD Ot 272.0 PURE HYPERCHOLESTEROLEM 03/05/2015 DANIELA LIND, GERBER [place] Ot 401.9 HYPERTENSION NOS 03/05/2015 DANIELA LIND, GERBER [place] Ot 414.00 CORON ATHEROSCLER NOS TYPE VESSEL, NATIV 03/05/2015 DANIELA LIND, GERBER [place] Ot V58.69 OTH MED,LT,CURRENT USE 2015 DUDLEY LIND, TED [place] Ot E03.9 HYPOTHYROIDISM, UNSPECIFIED 2015 TED BUCKNER MD Ot E11.9 TYPE 2 DIABETES MELLITUS WITHOUT COMPLIC 2015 TED BUCKNER MD Ot I10 ESSENTIAL (PRIMARY) HYPERTENSION 2015 TED BUCKNER MD Ot R07.9 CHEST PAIN, UNSPECIFIED 2015 DUDLEY LIND, TED [place] Ot Z87.891 PERSONAL HISTORY OF NICOTINE DEPENDENCE 06/05/2015 DANIELA LIND, GERBER [place] Ot 153.3 06/05/2015 DANIELA LIND, GERBER [place] Ot 244.9 06/05/2015 DANIELA LIND, GERBER [place] Ot 250.00 06/05/2015 DANIELA LIND, GERBER [place] Ot 272.0 06/05/2015 GERBER SUAREZ MD Ot 401.9 06/05/2015 DANIELA LIND, GERBER [place] Ot 414.00 06/05/2015 GERBER SUAREZ MD Ot V58.69 07/18/2015 DANIELA LIND, GERBER [place] Ot 153.3 07/18/2015 GERBER SUAREZ MD Ot 244.9 07/18/2015 DANIELA LIND, GERBER [place] Ot 250.00 07/18/2015 DANIELA LIND, GERBER [place] Ot 272.0 07/18/2015 DANIELA LIND, GERBER [place] Ot 401.9 07/18/2015 DANIELA LIND, GERBER [place] Ot 414.00 07/18/2015 DANIELA LIND, GERBER [place] Ot V58.69 08/07/2015 DANIELA LIND, GERBER [place] Ot C18.7 08/07/2015 DANIELA LIND, GERBER [place] Ot E03.9 08/07/2015 DANIELA LIND, GERBER [place] Ot E11.9 08/07/2015 DANIELA LIND, GERBER [place] Ot E78.0 08/07/2015 DANIELA LIND, GERBER [place] Ot I10 08/07/2015 DANIELA LIND, GERBER [place] Ot I25.10 08/07/2015 DANIELA LIND, GERBER [place] Ot Z79.899 08/07/2015 DANIELA LIND, GERBER [place] Ot C18.7 08/07/2015 DANIELA LIND, GERBER [place] Ot E03.9 08/07/2015 DANIELA LIND, GERBER [place] Ot E11.9 08/07/2015 DANIELA LIND, GERBER [place] Ot E78.0 08/07/2015 DANIELA LIND, GERBER [place] Ot I10 08/07/2015 DANIELA LIND, GERBER [place] Ot I25.10 08/07/2015 DANIELA LIND, GERBER [place] Ot Z79.899 09/10/2015 DANIELA LIND, GERBER [place] Ot 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 09/10/2015 DANIELA LIND, GERBER [place] Ot E03.9 HYPOTHYROIDISM, UNSPECIFIED 09/10/2015 DANIELA LIND, GERBER [place] Ot E11.9 TYPE 2 DIABETES MELLITUS WITHOUT COMPLIC 09/10/2015 DANIELA LIND, GERBER [place] Ot E78.0 PURE HYPERCHOLESTEROLEMIA 09/10/2015 DANIELA LIND, GERBER [place] Ot I10 ESSENTIAL (PRIMARY) HYPERTENSION 09/10/2015 DANIELA LIND, [place]ERBER [place] Ot I25.10 ATHSCL HEART DISEASE OF [place] CORONARY 09/10/2015 DANIELA LIND, GERBER [place] Ot Z79.899 OTHER PENITENTIARY (CURRENT) DRUG THERAPY 12/04/2015 DANIELA LIND, GERBER [place] Ot 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 12/04/2015 DANIELA LIND, GERBER [place] Ot E03.9 HYPOTHYROIDISM, UNSPECIFIED 12/04/2015 DANIELA LIND, GERBER [place] Ot E11.9 TYPE 2 DIABETES MELLITUS WITHOUT COMPLIC 12/04/2015 DANIELA LIND, GERBER [place] Ot E78.0 PURE HYPERCHOLESTEROLEMIA 12/04/2015 GERBER SUAREZ MD Ot I10 ESSENTIAL (PRIMARY) HYPERTENSION 12/04/2015 GERBER SUAREZ MD Ot I25.10 ATHSCL HEART DISEASE OF [place] CORONARY 12/04/2015 GERBER SUAREZ MD Ot Z79.899 OTHER PENITENTIARY (CURRENT) DRUG THERAPY 12/12/2015 GERBER SUAREZ MD Ot 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 12/12/2015 GERBER SUAREZ MD Ot E03.9 HYPOTHYROIDISM, UNSPECIFIED 12/12/2015 GERBER SUAREZ MD Ot E11.9 TYPE 2 DIABETES MELLITUS WITHOUT COMPLIC 12/12/2015 GERBER SUAREZ MD Ot E78.0 PURE HYPERCHOLESTEROLEMIA 12/12/2015 GERBER SUAREZ MD Ot I10 ESSENTIAL (PRIMARY) HYPERTENSION 12/12/2015 GERBER SUAREZ MD Ot I25.10 ATHSCL HEART DISEASE OF [place] CORONARY 12/12/2015 GERBER SUAREZ MD Ot Z79.899 OTHER PENITENTIARY (CURRENT) DRUG THERAPY 01/18/2016 Ot 401.9 HYPERTENSION [...] Ot V74.8 SCREEN-BACTERIAL DIS NEC 01/18/2016 DEBBIE QUEEN DO Ot V72.84 EXAM PRE-OPERATIVE NOS 01/18/2016 AURA ESCOBAR MD Ot 721.3 LUMBOSACRAL SPONDYLOSIS 01/18/2016 ANGE LANDAVERDE [...] MD Ot I25.10 ATHSCL HEART DISEASE OF [place] CORONARY 01/18/2016 GERBER SUAREZ MD Ot Z79.899 OTHER CREW TEAM MEMBER (CURRENT) DRUG THERAPY 01/20/2016 PRIYANKA FOX DO [...] HISTORY OF COLONIC POLYPS 01/22/2016 NEGIN KAT MD Ot V15.82 HISTORY OF TOBACCO USE 01/22/2016 [...] MD Ot I25.10 ATHSCL HEART DISEASE OF [place] CORONARY 01/22/2016 GERBER SUAREZ MD Ot Z79.899 OTHER CREW TEAM MEMBER (CURRENT) DRUG THERAPY 01/23/2016 GERBER SUAREZ MD Ot 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 01/23/2016 GERBER SUAREZ MD Ot E03.9 HYPOTHYROIDISM, UNSPECIFIED 01/23/2016 GERBER SUAREZ MD Ot E11.9 TYPE 2 DIABETES MELLITUS WITHOUT COMPLIC 01/23/2016 GERBER SUAREZ MD Ot E78.0 PURE HYPERCHOLESTEROLEMIA 01/23/2016 GERBER SUAREZ MD Ot I10 ESSENTIAL (PRIMARY) HYPERTENSION 01/23/2016 GERBER SUAREZ MD Ot I25.10 ATHSCL HEART DISEASE OF [place] CORONARY 01/23/2016 GERBER SUAREZ MD Ot Z79.899 OTHER PENITENTIARY (CURRENT) DRUG THERAPY 01/29/2016 Ot 401.9 HYPERTENSION [...] OCCLUSION NOS W CEREBRAL IN 01/29/2016 ROWENAKLARISSA ENVIRONMENTAL WEB CRAWLER Ot V76.12 OTH SCREEN MAMMO-MALIGN NEOPLASM OF [place] 01/29/2016 NEGIN KAT MD Ot V72.84 EXAM PRE-OPERATIVE NOS 01/29/2016 GERBER SUAREZ MD Ot 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 01/29/2016 NEGIN KAT MD, Ot V72.84 EXAM PRE-OPERATIVE NOS 01/29/2016 NEGIN [...] MD Ot I25.10 ATHSCL HEART DISEASE OF [place] CORONARY 01/29/2016 GERBER SUAREZ MD Ot Z79.899 OTHER CREW TEAM MEMBER (CURRENT) DRUG THERAPY 01/29/2016 KLARISSA GUAMAN Ot [...] MD Ot I25.10 ATHSCL HEART DISEASE OF [place] CORONARY 02/06/2016 GERBER SUAREZ MD Ot Z79.899 OTHER PENITENTIARY (CURRENT) DRUG THERAPY 02/18/2016 KLARISSA GUAMAN Ot M25.511 PAIN IN RIGHT SHOULDER 02/19/2016 TED BUCKNER MD Ot M25.511 PAIN IN RIGHT SHOULDER 03/03/2016 KLARISSA GUAMANP Ot M25.511 PAIN IN RIGHT SHOULDER 03/10/2016 GERBER SUAREZ MD Ot 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 03/10/2016 GERBER SUAREZ MD Ot E03.9 HYPOTHYROIDISM, UNSPECIFIED 03/10/2016 GERBER SUAREZ MD Ot E11.9 TYPE 2 DIABETES MELLITUS WITHOUT COMPLIC 03/10/2016 GERBER SUAREZ MD Ot E78.0 PURE HYPERCHOLESTEROLEMIA 03/10/2016 GERBER SUAREZ MD Ot I10 ESSENTIAL (PRIMARY) HYPERTENSION 03/10/2016 DANIELA LIND, GERBER [place] Ot I25.10 ATHSCL HEART DISEASE OF [place] CORONARY 03/10/2016 DANIELA LIND, GERBER [place] Ot Z79.899 OTHER PENITENTIARY (CURRENT) DRUG THERAPY 08/18/2016 Ot 564.00 UNSPEC CONSTIPATION 08/18/2016 Ot 578.1 BLOOD IN STOOL 08/18/2016 Ot 787.91 DIARRHEA 08/18/2016 Ot 789.00 ABDOMINAL PAIN, UNSPECIFIED SITE 08/18/2016 Ot 368.9 VISUAL DISTURBANCE NOS 08/18/2016 Ot 401.9 HYPERTENSION NOS 08/18/2016 Ot 433.30 MULT BILTRAL ARTERY OCCLUSION WO CEREBRA 08/18/2016 Ot 785.9 CARDIOVAS SYS SYMP NEC 08/18/2016 Ot 786.50 CHEST PAIN NOS 08/18/2016 TED BUCKNER MD Ot 719.46 JOINT PAIN-L/LEG 08/18/2016 TED BUCKNER [...] OCCLUSION NOS W CEREBRAL IN 08/18/2016 KLARISSA GUAMAN Ot V76.12 OTH SCREEN MAMMO-MALIGN NEOPLASM OF [place] 08/18/2016 NEGIN KAT MD Ot V72.84 EXAM PRE-OPERATIVE NOS 08/18/2016 GERBER SUAREZ MD Ot 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 08/18/2016 NEGIN KAT MD Ot V72.84 EXAM PRE-OPERATIVE NOS 08/18/2016 NEGIN [...] MD Ot 786.6 CHEST SWELLING/MASS/LUMP 08/18/2016 TED BUCKNER MD Ot V76.12 OTH SCREEN [...] MD Ot I25.10 ATHSCL HEART DISEASE OF [place] CORONARY 08/18/2016 GERBER SUAREZ MD Ot Z79.899 OTHER CREW TEAM MEMBER (CURRENT) DRUG THERAPY 08/19/2016 GERBER SUAREZ MD Ot 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 08/19/2016 GERBER SUAREZ MD Ot E03.9 HYPOTHYROIDISM, UNSPECIFIED 08/19/2016 GERBER SUAREZ MD Ot E11.9 TYPE 2 DIABETES MELLITUS WITHOUT COMPLIC 08/19/2016 GERBER SUAREZ MD Ot E78.0 PURE HYPERCHOLESTEROLEMIA * DO NOT USE * 08/19/2016 GERBER SUAREZ MD Ot I10 ESSENTIAL (PRIMARY) HYPERTENSION 08/19/2016 DANIELA LIND GERBER [place] Ot I25.10 ATHSCL HEART DISEASE OF [place] CORONARY 08/19/2016 DANIELA LIND GERBER [place] Ot Z79.899 OTHER CREW TEAM MEMBER (CURRENT) DRUG THERAPY 09/01/2016 Ot 564.00 UNSPEC [...] Ot 791.9 ABN URINE FINDINGS NEC 09/01/2016 AURA ESCOBAR MD Ot V72.63 PRE-PROCEDURAL LABORATORY EXAMINATION 09/01/2016 AURA ESCOBAR MD Ot V72.83 EXAM PRE-OPERATIVE NEC 09/01/2016 AURA ESCOBAR MD Ot V74.8 SCREEN-BACTERIAL DIS NEC 09/01/2016 DEBBIE QUEEN DO Ot V72.84 EXAM PRE-OPERATIVE NOS 09/01/2016 AURA ESCOBAR MD Ot 721.3 LUMBOSACRAL SPONDYLOSIS 09/01/2016 ANGE LANDAVERDE MD Ot 272.0 PURE HYPERCHOLESTEROLEM 09/01/2016 ANGE LANDAVERDE MD Ot 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 09/01/2016 ANGE LANDAVERDE MD Ot 397.0 TRICUSPID VALVE DISEASE 09/01/2016 ANGE LANDAVERDE MD Ot 401.9 HYPERTENSION NOS 09/01/2016 ANGE LANDAVERDE MD Ot 434.91 CEREBRAL ART OCCLUSION NOS W CEREBRAL IN 09/01/2016 KLARISSA GUAMAN Ot V76.12 OTH SCREEN MAMMO-MALIGN NEOPLASM OF [place] 09/01/2016 NEGIN KAT MD, Ot V72.84 EXAM PRE-OPERATIVE NOS 09/01/2016 GERBER [...] 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 09/01/2016 GERBER SUAREZ MD Ot E03.9 HYPOTHYROIDISM, UNSPECIFIED 09/01/2016 GERBER SUAREZ MD Ot E11.9 TYPE 2 DIABETES MELLITUS WITHOUT COMPLIC 09/01/2016 GERBER SUAREZ MD Ot E78.00 PURE HYPERCHOLESTEROLEMIA, UNSPECIFIED 09/01/2016 GERBER SUAREZ MD Ot I10 ESSENTIAL (PRIMARY) HYPERTENSION 09/01/2016 GERBER SUAREZ MD Ot I25.10 ATHSCL HEART DISEASE OF [place] CORONARY 09/01/2016 DANIELA LIND, GERBER [place] Ot Z79.899 OTHER CREW TEAM MEMBER (CURRENT) DRUG THERAPY 09/02/2016 KLARISSA GUAMANP Ot R05 COUGH 09/02/2016 KLARISSA GUAMANP Ot R07.81 PLEURODYNIA 09/02/2016 KLARISSA GUAMANP Ot Z91.81 HISTORY OF FALLING 09/02/2016 KLARISSA GUAMANP Ot Z99.81 DEPENDENCE ON SUPPLEMENTAL OXYGEN 09/04/2016 KLARISSA GUAMAN ENVIRONMENTAL WEB CRAWLER Ot R05 COUGH 09/04/2016 KLARISSA GUAMANP Ot R07.81 PLEURODYNIA 09/04/2016 KLARISSA GUAMANP Ot Z91.81 HISTORY OF FALLING 09/04/2016 KLARISSA GUAMANP Ot Z99.81 DEPENDENCE ON SUPPLEMENTAL OXYGEN 09/23/2016 KLARISSA GUAMANP Ot R05 COUGH 09/23/2016 ROWENAKLARISSA ENVIRONMENTAL WEB CRAWLER Ot R07.81 PLEURODYNIA 09/23/2016 ROWENAKLARISSA ENVIRONMENTAL WEB CRAWLER Ot Z91.81 HISTORY OF FALLING 09/23/2016 ROWENAKLARISSA ENVIRONMENTAL WEB CRAWLER Ot Z99.81 DEPENDENCE ON SUPPLEMENTAL OXYGEN 09/28/2016 GERBER SUAREZ MD Ot 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 09/28/2016 GERBER SUAREZ MD Ot E03.9 HYPOTHYROIDISM, UNSPECIFIED 09/28/2016 GERBER SUAREZ MD Ot E11.9 TYPE 2 DIABETES MELLITUS WITHOUT COMPLIC 09/28/2016 GERBER SUAREZ MD Ot E78.00 PURE HYPERCHOLESTEROLEMIA, UNSPECIFIED 09/28/2016 GERBER SUAREZ MD Ot I10 ESSENTIAL (PRIMARY) HYPERTENSION 09/28/2016 GERBER SUAREZ MD Ot I25.10 ATHSCL HEART DISEASE OF [place] CORONARY 09/28/2016 GERBER SUAREZ MD Ot Z79.899 OTHER CREW TEAM MEMBER (CURRENT) DRUG THERAPY 10/06/2016 HOMAR AGUILERA MD Ot Z12.31 ENCNTR SCREEN MAMMOGRAM FOR MALIGNANT NE 10/07/2016 HOMAR AGUILERA MD Ot Z12.31 ENCNTR SCREEN MAMMOGRAM FOR MALIGNANT NE 10/28/2016 PEPE MORALES Ot S42.351A DISPLACED COMMINUTED FX SHAFT OF HUMERUS 10/28/2016 PEPE MORALES Ot S49.91XA UNSP INJURY OF RIGHT SHOULDER AND UPPER 10/28/2016 PEPE MORALES Ot W01.0XXA FALL SAME LEV FROM SLIP/TRIP W/O STRIKE 10/28/2016 PEPE MORALES Ot Y92.512 SUPERMARKET, STORE OR MARKET PLACE 10/28/2016 PEPE MORALES Ot Y99.8 OTHER EXTERNAL CAUSE STATUS 10/28/2016 PEPE MORALES Ot Z79.82 PENITENTIARY (CURRENT) USE OF ASPIRIN 10/28/2016 PEPE MORALES Ot Z79.899 OTHER CREW TEAM MEMBER (CURRENT) DRUG THERAPY 10/29/2016 HOMAR AGUILERA MD, Ot Z12.31 ENCNTR SCREEN MAMMOGRAM FOR MALIGNANT NE 11/16/2016 GERBER SUAREZ MD Ot 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 11/16/2016 GERBER SUAREZ MD Ot E03.9 HYPOTHYROIDISM, UNSPECIFIED 11/16/2016 GERBER SUAREZ MD Ot E11.9 TYPE 2 DIABETES MELLITUS WITHOUT COMPLIC 11/16/2016 GERBER SUAREZ MD Ot E78.00 PURE HYPERCHOLESTEROLEMIA, UNSPECIFIED 11/16/2016 GERBER SUAREZ MD Ot I10 ESSENTIAL (PRIMARY) HYPERTENSION 11/16/2016 GERBER SUAREZ MD Ot I25.10 ATHSCL HEART DISEASE OF [place] CORONARY 11/16/2016 GERBER SUAREZ MD Ot Z79.899 OTHER CREW TEAM MEMBER (CURRENT) DRUG THERAPY 01/25/2018 EMMA BACON APRN Ot S29.9XXA UNSPECIFIED INJURY OF THORAX, INITIAL EN 01/25/2018 EMMA BACON APRN Ot W19.XXXA UNSPECIFIED FALL, INITIAL ENCOUNTER 02/11/2018 TED BUCKNER MD Ot 719.46 JOINT PAIN-L/LEG 02/11/2018 TED BUCKNER MD Ot 729.5 PAIN IN LIMB 02/11/2018 AURA ESCOBAR MD Ot 715.36 LOC OSTEOARTH NOS-L/LEG 02/11/2018 AURA ESCOBAR MD Ot 780.79 OTH MALAISE FATIGUE 02/11/2018 AURA ESCOBAR MD Ot 791.9 ABN URINE FINDINGS NEC 02/11/2018 AURA ESCOBAR MD Ot V72.63 PRE-PROCEDURAL LABORATORY EXAMINATION 02/11/2018 AURA ESCOBAR MD Ot V72.83 EXAM PRE-OPERATIVE NEC 02/11/2018 AURA ESCOBAR MD Ot V74.8 SCREEN-BACTERIAL DIS NEC 02/11/2018 DEBBIE QUEEN DO Ot V72.84 EXAM PRE-OPERATIVE NOS 02/11/2018 AURA ESCOBAR MD Ot 721.3 LUMBOSACRAL SPONDYLOSIS 02/11/2018 ANGE LANDAVERDE MD Ot 272.0 PURE HYPERCHOLESTEROLEM 02/11/2018 ANGE LANDAVERDE MD Ot 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 02/11/2018 ANGE LANDAVERDE MD Ot 397.0 TRICUSPID VALVE DISEASE 02/11/2018 ANGE LANDAVERDE MD Ot 401.9 HYPERTENSION NOS 02/11/2018 ANGE LANDAVERDE MD Ot 434.91 CEREBRAL ART OCCLUSION NOS W CEREBRAL IN 02/11/2018 KLARISSA GUAMAN Ot V76.12 OTH SCREEN MAMMO-MALIGN NEOPLASM OF [place] 02/11/2018 NEGIN KAT MD Ot V72.84 EXAM PRE-OPERATIVE NOS 02/11/2018 GERBER SUAREZ MD Ot 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 02/11/2018 NEGIN KAT MD Ot V72.84 EXAM PRE-OPERATIVE NOS 02/11/2018 NEGIN KAT MD Ot 244.9 HYPOTHYROIDISM NOS 02/11/2018 NEGIN KAT MD Ot 272.0 PURE HYPERCHOLESTEROLEM 02/11/2018 NEGIN KAT MD Ot 401.9 HYPERTENSION NOS 02/11/2018 NEGIN KAT MD Ot 443.9 PERIPH VASCULAR DIS NOS 02/11/2018 NEGIN KAT MD Ot 455.0 INT HEMORRHOID W/O COMPL 02/11/2018 NEGIN KAT MD Ot 455.3 EXT HEMORRHOID W/O COMPL 02/11/2018 NEGIN KAT MD Ot V10.05 HX OF COLONIC MALIGNANCY 02/11/2018 NEGIN KAT MD Ot V12.72 PERSONAL HISTORY OF COLONIC POLYPS 02/11/2018 NEGIN KAT MD Ot V15.82 HISTORY OF TOBACCO USE 02/11/2018 FREDERIC HARVEY Ot 250.00 DIAB BRIDGET WO COMPL, TYPE II OR UNSPEC TY 02/11/2018 FREDERIC HARVEY Ot 272.0 PURE HYPERCHOLESTEROLEM 02/11/2018 FREDERIC HARVEY Ot 401.9 HYPERTENSION NOS 02/11/2018 FREDERIC HARVEY Ot 434.91 CEREBRAL ART OCCLUSION NOS W CEREBRAL IN 02/11/2018 FREDERIC HARVEY Ot 786.50 CHEST PAIN NOS 02/11/2018 TED BUCKNER MD Ot 786.6 CHEST SWELLING/MASS/LUMP 02/11/2018 TED BUCKNER MD Ot V76.12 OTH SCREEN MAMMO-MALIGN NEOPLASM OF KOBY 02/11/2018 KLARISSA GUAMAN Ot M25.511 PAIN IN RIGHT SHOULDER 02/11/2018 KLARISSA GUAMANP Ot R05 COUGH 02/11/2018 KLARISSA GUAMANP Ot R07.81 PLEURODYNIA 02/11/2018 KLARISSA GUAMAN Ot Z91.81 HISTORY OF FALLING 02/11/2018 ROWENASARAKLARISSA Samira NADIA Ot Z99.81 DEPENDENCE ON SUPPLEMENTAL OXYGEN 02/11/2018 LAE LIND, HOMAR Khan Ot Z12.31 ENCNTR SCREEN MAMMOGRAM FOR MALIGNANT NE 02/11/2018 EMMA BACON APRN Ot S29.9XXA UNSPECIFIED INJURY OF THORAX, INITIAL EN 02/11/2018 EMMA BACON APRN Ot W19.XXXA UNSPECIFIED FALL, INITIAL ENCOUNTER Procedures Code Description Performed By Performed On 45.16 ESOPHAGOGASTRODUODENOSCOPY [ EGD] W/CLOSE 04/10/2011 45.42 ENDOSC POLYPECTOMY OF LG INTEST 04/10/2011 81.54 TOTAL KNEE REPLACEMENT 01/11/2013 Results Test Result Range Complete blood count (CBC) with automated white blood cell (WBC) differential - 02/11/18 05:54 Blood leukocytes automated count (number/volume) 11.5 10*3/uL 4.3-11.0 Blood erythrocytes automated count (number/volume) 4.15 10*6/uL 4.35-5.85 Venous blood hemoglobin measurement (mass/volume) 13.5 g/dL 11.5-16.0 Blood hematocrit (volume fraction) 40 % 35-52 Automated erythrocyte mean corpuscular volume 96 [foz_us] 80-99 Automated erythrocyte mean corpuscular hemoglobin (mass per erythrocyte) 33 pg 25-34 Automated erythrocyte mean corpuscular hemoglobin concentration measurement ( mass/volume) 34 g/dL 32-36 Automated erythrocyte distribution width ratio 14.1 % 10.0-14.5 Automated blood platelet count (count/volume) 173 10*3/uL 130-400 Automated blood platelet mean volume measurement 10.4 [foz_us] 7.4-10.4 Automated blood neutrophils/100 leukocytes 76 % 42-75 Automated blood lymphocytes/100 leukocytes 13 % 12-44 Blood monocytes/100 leukocytes 7 % 0-12 Automated blood eosinophils/100 leukocytes 4 % 0-10 Automated blood basophils/100 leukocytes 1 % 0-10 Blood neutrophils automated count (number/volume) 8.8 10*3 1.8-7.8 Blood lymphocytes automated count (number/volume) 1.5 10*3 1.0-4.0 Blood monocytes automated count (number/volume) 0.8 10*3 0.0-1.0 Automated eosinophil count 0.5 10*3/uL 0.0-0.3 Automated blood basophil count (count/volume) 0.1 10*3/uL 0.0-0.1 Comprehensive metabolic panel - 02/11/18 05:54 Serum or plasma sodium measurement (moles/volume) 138 mmol/L 135-145 Serum or plasma potassium measurement (moles/volume) 3.8 mmol/L 3.6-5.0 Serum or plasma chloride measurement (moles/volume) 107 mmol/L 98-107 Carbon dioxide 19 mmol/L 21-32 Serum or plasma anion gap determination (moles/volume) 12 mmol/L 5-14 Serum or plasma urea nitrogen measurement (mass/volume) 19 mg/dL 7-18 Serum or plasma creatinine measurement (mass/volume) 0.94 mg/dL 0.60-1.30 Serum or plasma urea nitrogen/creatinine mass ratio 20 NRG Serum or plasma creatinine measurement with calculation of estimated glomerular filtration rate 56 NRG Serum or plasma glucose measurement (mass/volume) 145 mg/dL 70-105 Serum or plasma calcium measurement (mass/volume) 9.2 mg/dL 8.5-10.1 Serum or plasma total bilirubin measurement (mass/volume) 1.0 mg/dL 0.1-1.0 Serum or plasma alkaline phosphatase measurement (enzymatic activity/volume) 73 U/L 40-136 Serum or plasma aspartate aminotransferase measurement (enzymatic activity/ volume) 26 U/L 5-34 Serum or plasma alanine aminotransferase measurement (enzymatic activity/volume ) 20 U/L 0-55 Serum or plasma protein measurement (mass/volume) 6.9 g/dL 6.4-8.2 Serum or plasma albumin measurement (mass/volume) 4.2 g/dL 3.2-4.5 THYROID STIMULATING HORMONE - 02/11/18 05:54 THYROID STIMULATING HORMONE 14.86 u[iU]/mL 0.35-4.94 Serum or plasma thyroxine (T4) free measurement (mass/volume) - 02/11/18 05:54 Serum or plasma thyroxine (T4) free measurement (mass/volume) 0.89 ng/dL 0.70-1.48 Encounters ACCT No. Visit Date/Time Discharge Status Pt. Type Provider Facility Loc./Unit Complaint [id number] 01/24/2018 10:13:00 01/24/2018 23:59:59 CLS Outpatient EMMA BACON APRN [facility] RAD FALL,RIGHT RIB PAIN [id number] 11/17/2016 00:11:00 11/17/2016 23:59:59 CLS Preadmit GERBER SUAREZ MD [facility] ONC [id number] 08/18/2016 12:58:00 11/16/2016 00:01:00 DIS Outpatient GERBER SUAREZ MD [facility] ONC [id number] 10/28/2016 13:59:00 10/28/2016 15:47:00 DIS Emergency PEPE MORALES [facility] ER FALL / R ARM [id number] 10/06/2016 10:00:00 10/06/2016 23:59:59 CLS Outpatient HOMAR AGUILERA MD [facility] RAD SCREENING [id number] 09/01/2016 11:17:00 09/01/2016 23:59:59 CLS Outpatient KLARISSA GUAMAN [facility] RAD COUGH,FALL,RT RIB PAIN [id number] 12/11/2015 12:33:00 03/10/2016 00:01:00 DIS Outpatient GERBER SUAREZ MD [facility] ONC [id number] 02/14/2016 13:09:00 02/19/2016 15:10:00 DIS Outpatient TED BUCKNER MD [facility] REHAB R SHOULDER PAIN [id number] 01/22/2016 08:21:00 01/22/2016 23:59:59 CLS Outpatient KLARISSA GUAMAN [facility] RAD R SHOULDER PAIN [id number] 01/19/2016 01:29:00 01/20/2016 14:10:00 DIS Inpatient PRIYANKA FOX DO [facility] 4TH SMALL BOWEL OBSTRUCTION DUE TO ADHESIONS [id number] 06/12/2015 12:48:00 06/12/2015 23:59:59 CLS Outpatient GERBER SUAREZ MD [facility] ONC [id number] 05/23/2015 10:10:00 2015 12:30:00 DIS Inpatient TED BUCKNER MD [facility] CSD CHEST PAIN [id number] 12/05/2014 12:51:00 03/05/2015 00:01:00 DIS Outpatient GERBER SUAREZ MD [facility] ONC [id number] 09/14/2014 10:04:00 09/14/2014 23:59:59 CLS Outpatient TED BUCKNER MD [facility] RAD SCREENING,L CHEST WALL NODULE [id number] 07/04/2014 13:34:00 07/04/2014 23:59:59 CLS Outpatient GERBER SUAREZ MD [facility] ONC [id number] 05/16/2014 07:58:00 05/16/2014 23:59:59 CLS Outpatient FREDERIC HARVEY [facility] CARD CVA,CP,HTN, NIDDM [id number] 05/02/2014 08:25:00 05/02/2014 23:59:59 CLS Outpatient NEGIN KAT MD [facility] SDC HX POLYPS [id number] 04/26/2014 07:36:00 04/26/2014 23:59:59 CLS Outpatient NEGIN KAT MD [facility] PREOP HX POLYPS [id number] 01/01/2014 14:29:00 03/05/2014 00:01:00 DIS Outpatient GERBER SUAREZ MD [facility] ONC [id number] 12/21/2013 09:24:00 12/21/2013 23:59:59 CLS Outpatient GERBER SUAREZ MD [facility] RAD HX OF COLON CA [id number] 09/04/2013 14:06:00 12/03/2013 00:01:00 DIS Outpatient GERBER SUAREZ MD [facility] ONC [id number] 10/02/2013 10:04:00 10/02/2013 19:35:00 DIS Inpatient TED BUCKNER MD [facility] CSD CHEST PAIN [id number] 08/16/2013 08:08:00 08/16/2013 12:10:00 DIS Outpatient NEGIN KAT MD [facility] SDC HISTORY OF POLYPS [id number] 08/09/2013 07:17:00 08/09/2013 23:59:59 CLS Outpatient NEGIN KAT MD [facility] PREOP HISTORY OF POLYPS [id number] 07/19/2013 12:29:00 07/19/2013 23:59:59 CLS Outpatient AKHIL LIND, ANGE Torres [facility] CARD CVA,HTN,HYPOTHYROIDISM [id number] 07/07/2013 12:37:00 07/07/2013 23:59:59 CLS Outpatient KLARISSA GUAMAN [facility] RAD SCREENING [id number] 04/20/2013 13:39:00 04/20/2013 23:59:59 CLS Outpatient AURA ESCOBAR MD [facility] RAD RT RADICULOPATHY [id number] 04/11/2013 10:46:00 04/11/2013 16:15:00 DIS Outpatient DEBBIE QUEEN DO [facility] BLOOD IN STOOLS [id number] 04/06/2013 07:11:00 04/06/2013 23:59:59 CLS Outpatient DEBBIE QUEEN DO [facility] PREOP BLOOD IN STOOLS [id number] 01/13/2013 11:44:00 01/19/2013 11:50:00 DIS Inpatient PRIYANKA BAH MD [facility] IRF POST OP KNEE REPLACEMENT [id number] 01/11/2013 08:46:00 01/13/2013 11:43:00 DIS Inpatient AURA ESCOBAR MD [facility] SURGICAL SEVERE ARTHRITIS RIGHT KNEE [id number] 01/04/2013 08:14:00 01/04/2013 23:59:59 CLS Outpatient AURA ESCOBAR MD [facility] PREOP RT KNEE SEVERE OSTEOARTHRITIS [id number] 12/08/2012 15:53:00 12/08/2012 23:59:59 CLS Outpatient TED BUCKNER MD [facility] RAD KNEE PAIN,LEG PAIN [id number] 02/11/2018 07:45:00 ACT Inpatient BROCK LIND, PORTER Hogan [facility] 4TH FALL W/ RT HIP PAIN FX RT SI JOINT [id number] 01/18/2016 20:30:00 Document Registration [id number] 01/18/2016 20:30:00 Document Registration [id number] 01/18/2016 20:30:00 Document Registration [id number] 03/04/2013 10:44:00 Document Registration [id number] 09/30/2011 09:48:00 Document Registration [id number] 09/14/2011 10:38:00 Document Registration [id number] 08/13/2011 08:06:00 Document Registration [id number] 08/05/2011 13:45:00 Document Registration [id number] 04/09/2011 13:18:00 Document Registration [id number] 03/27/2011 08:44:00 Document Registration [id number] 01/01/2011 12:34:00 Document Registration [id number] 12/05/2014 12:52:22 ACT Document Registration [id number] 01/22/2016 15:41:26 01/22/2016 23:59:59 CLS Outpatient
--- NOTE | 2018-02-11 08:42 | Diagnostic Imaging Report ---
PROCEDURE: MRI pelvis without contrast. TECHNIQUE: Multiplanar, multisequence MRI of the pelvis was performed without contrast. INDICATION: Right hip pain after fall. Known ilium fracture. COMPARISON: CT abdomen and pelvis of 02/11/2018. FINDINGS: Bones: Left total hip arthroplasty result in signal void artifact limiting assessment of the surrounding soft tissue and osseous structures. Specifically, the area of geographic osteolysis at the superior aspect acetabular cup seen on CT is not well visualized on this MRI examination. The acute fracture in the posterior aspect of the right ilium adjacent to the SI joint is again noted and has surrounding edema. There is no definitive extension into the sacroiliac joint. Allowing for artifact in the left sacrum from the hip arthroplasty, there is no additional acute fracture within the pelvis. No fracture of the proximal right femur. Soft tissues: There is interstitial non-masslike edema within the right gluteus jhon muscle at its superior aspect indicative of muscle strain and/or contusion. There is no tendon tear around the right hip. No hip effusion on the right. No peritrochanteric fluid collection. IMPRESSION: 1. No additional fracture in the pelvis outside of the acute nondisplaced fracture in the posterior right ilium seen on CT of earlier same day. 2. Muscle strain and/or contusion involving the superior aspect of the right gluteus jhon. No tendon tear around the right hip. Dictated by: Dictated on workstation # [id number]
[2018-02-11 08:54] LABS: BILIRUBIN,URINE NEGATIVE (NEGATIVE); CLARITY,URINE CLEAR; COLOR,URINE YELLOW; GLUCOSE, URINE (UA) NEGATIVE (NEGATIVE); KETONES,URINE NEGATIVE (NEGATIVE); LEUKOCYTE ESTERASE ,URINE NEGATIVE (NEGATIVE); NITRITE,URINE NEGATIVE (NEGATIVE); PH,URINE 6.5 (5-9); PROTEIN,URINE 3+ (NEGATIVE); UROBILINOGEN,URINE NORMAL (NORMAL)
[2018-02-11 09:15] VITALS: BP 141/75
[2018-02-11 09:21] LABS: RBC,URINE RARE /HPF; WBC,URINE RARE /HPF
[2018-02-11 09:22] LABS: BACTERIA,URINE TRACE /HPF; SQUAMOUS EPITHELIAL CELL,UR RARE /HPF
[2018-02-11] MEDS ORDERED: ACETAMINOPHEN 325 MG TABLET PO PRN (09:45)
[2018-02-11] MEDS ORDERED: ONDANSETRON 4 MG/2 ML (SDV) Z0FRAN IVP PRN (09:45)
[2018-02-11 11:05] VITALS: BP 133/63
[2018-02-11] MEDS ORDERED: LEVO100T7 PO (11:10)
[2018-02-11] MEDS ORDERED: ATOR40TA PO (11:10)
[2018-02-11] MEDS ORDERED: ATEN50TA PO (11:10)
[2018-02-11] MEDS ORDERED: CHOL10007 PO (11:14)
[2018-02-11] MEDS ORDERED: ASPI325T32 PO (11:14)
[2018-02-11] MEDS ORDERED: MULT-35 PO (11:14)
[2018-02-11] MEDS ORDERED: VITA400C60 PO (11:14)
[2018-02-11] MEDS: fentaNYL INJECTION 100 MCG/2 ML AMP IVP PRN (11:28)
[2018-02-11 12:00] VITALS: BP 147/67
--- NOTE | 2018-02-11 12:07 | History & Physical-Hospitalist ---
History of Present Illness HPI/Chief Complaint Pt is an 87yoCF who presented to the ER due to hip pain following a fall yesterday. She states she was walking down steps and her knee gave out and she fell down the a few stairs on the cement. She hit her head and hip and was not able to get up for a while but eventually was able to stand get around. Her pain continued to worsen and her friend insisted she come in today because she could only take a few steps. She had an CT which revealed a nondisplaced pelvis fracture and MRI confirmed this. Due to her very limited mobility and continued pain she was admitted for pain control and orthopedic evaluation. Of note she did complain to her nurse about chest pain. She originally denied this during my exam and then said she did have some chest pain early this morning but has not had it since arrival. Source: patient Date Seen 02/11/18 Time Seen by Provider: 12:00 Attending Physician Porter Nelson MD PCP Thomas Martin MD Referring Physician Date of Admission Feb 11, 2018 at 07:45 Home Medications & Allergies Home Medications Reviewed patient Home Medication Reconciliation performed by pharmacy medication reconciliations speech therapist technician and/or nursing. Patients Allergies have been reviewed. Allergies Allergies Coded Allergies Sulfa (Sulfonamide Antibiotics) (Verified Allergy, Unknown, 02/11/18) PT DOES NOT KNOW REACTION TO MED Past Pforlte-Kprsts-Swugct Hx Past Med/Social Hx: Reviewed Nursing Past Med/Soc Hx Patient Social History Alcohol Use: Denies Use Recreational Drug Use: No Smoking Status: Current Everyday Smoker 2nd Hand Smoke Exposure: No Physical Abuse Screen: No Sexual Abuse: No Recent Foreign Travel: No Contact w/other who traveled: No Recent Hopitalizations: No Recent Infectious Disease Expo: No Immunizations Up To Date Tetanus Booster (TDap): Unknown Pediatric: No Date of Pneumonia Vaccine: May 02, 2013 Date of Influenza Vaccine: May 02, 2013 Seasonal Allergies Seasonal Allergies: No Past Medical History Surgeries: Gallbladder, Hysterectomy, Joint Replacement, Orthopedic Cardiac: Heart Murmur, Hypertension, Valvular Heart Disease Reproductive: No Genitourinary: Bladder Infection Gastrointestinal: Obstructive Bowel, Chronic Constipation, Polyps Musculoskeletal: Arthritis, Fractures Endocrine: Hypothyroidsim HEENT: Cataract Hearing Impairment: Hard of Hearing Psychosocial: Depression History of Blood Disorders: No Adverse Reaction to Blood [place]: No Family History Reviewed Nursing Family Hx Myocardial infarction 19 FATHER, Onset:84 (FATHER OF UNKNOWN HEART PROBLEMS, PT STATES IT WAS PROBABLY A HEART ATTACK) 19 MOTHER, Onset:70 G8 BROTHER, Onset:46 G8 SISTER Heart Disease, Hypertension Review of Systems Constitutional: No chills, No fever EENTM: No blurred vision, No double vision, No nose congestion, No throat pain Respiratory: No cough, No dyspnea on exertion, No short of breath Cardiovascular: chest pain; No edema, No palpitations Gastrointestinal: No abdominal pain, No constipation, No diarrhea, No nausea, No vomiting Genitourinary: No dysuria, No frequency Musculoskeletal: see HPI Skin: No lesions, No rash Psychiatric/Neurological: Denies Headache, Denies Numbness, Denies Tingling Physical Exam Physical Exam Vital Signs Vital Signs - First Documented 02/11/18 09:02 O2 Flow Rate 0 Capillary Refill : Less Than 3 SecondsLess Than 3 Seconds Height, Weight, BMI Height: 5'1.00" Weight: 113lbs. 7.0oz. 51.092482gx; 21.4 BMI Method:Stated General Appearance: No Apparent Distress, WD/WN HEENT: PERRL/EOMI, Moist Mucous Membranes Neck: Non Tender, Supple Respiratory: Lungs Clear, No Respiratory Distress Cardiovascular: Regular Rate, Rhythm, No Murmur Gastrointestinal: Normal Bowel Sounds, Non Tender, Soft Extremity: Normal Capillary Refill, No Calf Tenderness Neurologic/Psychiatric: Alert, Oriented x3 (though slightly confused ), Normal Mood/Affect Skin: Normal Color, Warm/Dry Results Results/Procedures Labs Laboratory Tests 02/11/18 05:54 Patient resulted labs reviewed. Imaging: Reviewed Imaging Report Assessment/Plan Admission Diagnosis Right Ilium Fracture Admission Status: Inpatient Order (span 2 midnights) Reason for Inpatient Admission: Ortho Consult, Pain management Diagnosis/Problems Diagnosis/Problems (1) Fracture, pelvis closed Status: Acute Assessment & Plan: Nondisplaced fracture noted on imaging Ortho consulted, appreciate recs I discussed with Dr Green- no operative repair needed PT/OT consulted Fentanyl for pain Will add bowel regimen Qualifiers: Encounter type: initial encounter Pelvic bone location: unspecified part of pelvis Fracture alignment: nondisplaced Qualified Codes: S32.9XXA - Fracture of unspecified parts of lumbosacral spine and pelvis, initial encounter for closed fracture (2) Hypertension Status: Chronic Assessment & Plan: BP well controlled, trend Qualifiers: Hypertension type: essential hypertension Qualified Codes: I10 - Essential (primary) hypertension (3) Hypothyroid Status: Chronic Assessment & Plan: Resume home medicines Concern that high TSH due to noncompliance Qualifiers: Hypothyroidism type: acquired Qualified Codes: E03.9 - Hypothyroidism, unspecified (4) Chest pain of uncertain etiology Status: Acute Assessment & Plan: Now resolved Troponin negative EKG unchanged from previous, no STEMI Monitor Clinical Quality Measures DVT/VTE Risk/Contraindication: Risk Factor Score Per Nursin RFS Level Per Nursing on Admit: 4+=Very High PORTER NELSON MD Feb 11, 2018 12:07 pm
--- NOTE | 2018-02-11 14:01 | Physical Therapy Evaluation ---
PT Evaluation-General Medical Diagnosis Admission Date Feb 11, 2018 at 07:45 Medical Diagnosis: fall with right hip pain and fracture right SI joint Onset Date: Feb 10, 2018 Therapy Diagnosis Therapy Diagnosis: debility Height/Weight Height (Feet): 5 Height (Inches): 1.00 Weight (Pounds): 113 Weight (Ounces): 7.0 Precautions Precautions/Isolations: Fall Prevention, Standard Precautions, Pressure Ulcer Weight Bear Status Right Lower Extremity: Right Weight Bearing/Tolerated Left Lower Extremity: Left Weight Bearing/Tolerated Referral Physician: Omar Reason for Referral: Evaluation/Treatment Medical History Pertinent Medical History: Dementia, HTN, Smoking Additional Medical History right TKR/left THR Current History POV secondary to fall/fell backward on steps to concrete and hit head and right hip Reviewed History: Yes Social History Home: Single Level Current Living Status: Alone Entry Into Home: Stairs With Railing PT Steps Into Home: 4 Prior/Core FIM Prior Level of Function Functional [place] Measure 0=Not Assessed/NA 4=Minimal Assistance 1=Total Assistance 5=Supervision or Setup 2=Maximal Assistance 6=Modified [place] 3=Moderate Assistance 7=Complete [place] Bed Mobility: 6 Transfers (B,C,W/C) (FIM): 6 Gait: 6 (furniture walk per her report) per patient she has a FWW but does not utilize PT Evaluation-Current Subjective Patient rates right pelvic pain 10/10. RN notified. Pain Numeric Pain Scale: 10-Worst Possible Pain Location: Right Location Body Site: Pelvic Pain Description: Stabbing, Acute Objective Patient Orientation: Normal For Age Problem Solving: Fair ROM/Strength ROM Lower Extremities bilateral LE WNL Strength Lower Extremities right LE 4/5 grossly (limited due to pain)/left LE 4/5 Integumentary/Posture Integumentary refer to nursing notes Bowel Incontinence: No Bladder Incontinence: No Posture WFL Neuromuscular (Tone, Coordination, Reflexes) grossly intact Sensory Vision: Functional Hearing: Impaired Sensation Right Lower Extremit: Intact Sensation Left Lower Extremity: Intact Transfers Functional [place] Measure 0=Not Assessed/NA 4=Minimal Assistance 1=Total Assistance 5=Supervision or Setup 2=Maximal Assistance 6=Modified [place] 3=Moderate Assistance 7=Complete [place] Transfers (B, C, W/C) (FIM): 5 Scootin Rollin Supine to/from Sit: 5 Sit to/from Stand: 5 moves slow, however, functional Gait Mode of Locomotion: Walk Anticipated Mode of Locomotion: Walk Gait (FIM): 5 Distance (FIM): 3=150 ft Distance: 150' Gait Level of Assist: 5 Gait Assistive Device: FWW Comments/Gait Description slow, antalgic, functional Balance Sitting Static: Normal Sitting Dynamic: Normal Standing Static: Normal Standing Dynamic: Fair Assessment/Needs 87 y.o. female, will be seen short term by skilled PT to address functional mobility to ensure safe return to home or care facility at maximum LOF. Rehab Potential: Fair Post Rehab Potential-Barriers: pain PT Piecer Goals Piecer Goals PT Group Home Goals Time Frame: Feb 18, 2018 Transfers (B,C,W/C) (FIM): 6 Gait (FIM): 6 Gait distance (FIM): 3=150 ft Distance: 250' Gait Level of Assist: 6 Gait Assistive Device: FWW Stairs (FIM): 5 # of Steps: 4 Stairs Level Of Assist: 5 household PT Plan Treatment/Plan Treatment Plan: Continue Plan of Care Treatment Plan: Bed Mobility, Education, Functional Activity Rebeca, Functional Strength, Gait, Safety, Therapeutic Exercise Treatment Duration: Feb 18, 2018 Frequency: 6 times per week Estimated Hrs Per Day: .25 hour per day Patient and/or Family Agrees t: Yes Safety Risks/Education Patient Education: Gait Training Teaching Recipient: Patient Teaching Methods: Demonstration, Discussion Response to Teaching: Verbalize Understanding, Return Demonstration Discharge Recommendations Therapy D/C Recommendations: Physical Therapy Home Care Time/GCodes Time In: 1330 Time Out: 1346 Total Billed Treatment Time: 16 Total Billed Treatment 1 visit EVModC 16 min PT/OT Therapy GCodes Therapy Functional Limitation: Physical Therapy Test(s)/Tool used to determine: FIM Functional Limitation-Current Charge Code: MOBCUR Modifier: CJ Functional Limitation-Goal Charge Code: MOBGOAL Modifier: ARMANI RIVERA PT Feb 11, 2018 14:01
--- NOTE | 2018-02-11 14:57 | Occupational Therapy Eval ---
OT Evaluation-General/PLF Medical Diagnosis Admission Date Feb 11, 2018 at 07:45 Medical Diagnosis: fall with right hip pain and fracture right SI joint Onset Date: Feb 10, 2018 Therapy Diagnosis Therapy Diagnosis: decr self care, decr funct mobility, weakness Height/Weight Height (Feet): 5 Height (Inches): 1.00 Weight (Pounds): 113 Weight (Ounces): 7.0 Precautions Precautions/Isolations: Fall Prevention, Standard Precautions, Pressure Ulcer Weight Bear Status Weight Bearing Restriction: Weight Bearing/Tolerated Location Restriction: LE Bilateral Referral Physician: Omar Referral Reason: Evaluation/Treatment Medical History Pertinent Medical History: Arthritis, Dementia, HTN, Hypothroidism, Smoking Additional Medical History R THR, L TKR, pneumonia, heart murmur, valvular disease. cataracts. [place] of hearing. Depression. Chronic constipation Current History Fell at home, hitting back of head and hip. Has R SI joint fracture. Friend reported that she has been having leg pain in the mornings and was scheduled to see Dr Payne next week. Reviewed History: Yes Social History Home: mobile home Current Living Status: Alone Entry Into Home: Stairs With Railing Steps Into Home: 4 ADL-Prior Level of Function ADL PLOF Comments Pt reported that she has been able to manage her basic self care tasks, maintain her house and drive "a little". 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 DME/Equipment: Shower, Tub OT Current Status Subjective Pt seen in room, up in bed, agreeable to OT. Pain reported 5/10 and in her back. Appearance Awake but a little drowsy. Cooperative. Confused on month but got year correct. Did not recall that she had gone for a walk with PT a few minutes earlier. Mental Status/Objective Patient Orientation: Person Attachments: IV Current Glasses/Contacts: Yes Hand Dominance: Right Upper Extremity ROM Grossly WFL bilat Upper Extremity Strength grossly 4/5 bilat ADL-Treatment ADL-Current Pt had just gotten back to bed and did not want to get u p. She walked 150 feet with SBA with PT, slowly but functionally. Pt reported that she has gotten on/ off toilet in bathroom here and didn't have any difficulty. Functional [place] Measure 0=Not Assessed/NA 4=Minimal Assistance 1=Total Assistance 5=Supervision or Setup 2=Maximal Assistance 6=Modified [place] 3=Moderate Assistance 7=Complete IndependenceIRFPAI Quality Coding Scale 6 Independent with activity with or without an assistive device 5 Patient requires set up or clean up by helper. Patient completes activity by themselves 4 Supervision or touching assist (CGA). [place] provide cues , steadying assist 3 The helper provides less than half the effort to complete the activity 2 The helper provides more than half the effort to complete the activity 1 Dependent. The helper does all the effort to complete an activity 7 Patient refused to complete or attempt activity 9 The patient did not perform the activity before the current illness or injury 88 Not attempted due to Medical conditions or safety concerns Education OT Patient Education: Purpose of tx/functional activities, Rehab process Teaching Recipient: Patient Teaching Methods: Discussion Response to Teaching: Verbalize Understanding OT Manager File Goals [facility] Goals Time Frame: Feb 18, 2018 Eating (FIM): 6 Grooming(FIM): 6 Bathing(FIM): 6 Upper Body Dressing(FIM): 6 Lower Body Dressing(FIM): 6 Toileting(FIM): 6 Toilet/Commode Transfer(FIM): 6 Shower Transfer(FIM): 5 Additional Goals: 1-Demonstrate ADL Tasks, 2-Verbalize Understanding, 3- ImproveStrength/Rebeca 1=Demonstrate adherence to instructed precautions during ADL tasks. 2=Patient will verbalize/demonstrate understanding of assistive devices/ modifications for ADL. 3=Patient will improve strength/tolerance for activity to enable patient to perform ADL's. OT Education/Plan Problem List/Assessment Assessment: Decreased UE Strength, Dependent Transfers, Impaired Self-Care Skills Pt would benefit from skilled OT to increase her independence ini basic self care Discharge Recommendations Plan/Recommendations: Continue POC Treatment Plan/Plan of Care Treatment,Training & Education: Yes Patient would benefit from OT for education, treatment and training to promote independence in ADL's, mobility, safety and/or upper extremity function for ADL' s. Plan of Care: ADL Retraining, Functional Mobility, UE Funct Exercise/Act, UE Neuromus Re-Ed/Coord Treatment Duration: Feb 18, 2018 Frequency: 5 times per week Estimated Hrs Per Day: .5 hour per day Agreement: Yes Rehab Potential: Fair Time/GCodes Start Time: 14:07 Stop Time: 14:21 Total Time Billed (hr/min): 14 Billed Treatment Time visit, evaluation low intensity PT/OT Therapy GCodes Therapy Functional Limitation: Physical Therapy Test(s)/Tool used to determine: FIM Functional Limitation-Current Charge Code: MOBCUDrkae Modifier: CJ Functional Limitation-Goal Charge Code: MOBWINSTON Modifier: VANESSA SALAS OT Feb 11, 2018 14:57
[2018-02-11] MEDS ORDERED: SENNA W/DOCUSATE (SENOKOT S) TABLET PO PRN (16:00)
[2018-02-11] MEDS ORDERED: ENOXAPARIN 40 MG/0.4 ML (LOVENOX) SYR SC SCH (16:00)
[2018-02-11] MEDS: ENOXAPARIN 30 MG/0.3 ML (LOVENOX) SYR SC SCH (16:36)
[2018-02-11] MEDS: HYDROcodone/APAP 5 MG/325 MG (LORTAB) TAB PO PRN ×2 (16:36→23:13)
[2018-02-11 16:51] VITALS: BP 144/65
[2018-02-11 20:05] VITALS: BP 120/85
[2018-02-11] MEDS: ATORVASTATIN 40 MG (LIPITOR) TABLET PO SCH (20:22)
[2018-02-11] MEDS: POLYETHYLENE GLYCOL 17 GM (MIRALAX) PACK PO SCH (20:22)
[2018-02-11] MEDS: ASPIRIN E.C. 325 MG (ECOTRIN) TABLET PO SCH (20:22)
[2018-02-11] MEDS: ACETAMINOPHEN 500 MG TAB (TYLENOL) PO PRN (23:12)
[2018-02-11 23:50] VITALS: BP 139/66
[2018-02-12 04:15] VITALS: BP 119/60
[2018-02-12] MEDS: LEVOTHYROXINE 100 MCG (LEVOTHROID) TAB PO SCH (05:27)
[2018-02-12] MEDS: HYDROcodone/APAP 5 MG/325 MG (LORTAB) TAB PO PRN ×3 (05:29→20:13)
[2018-02-12 08:00] VITALS: BP 128/61
--- NOTE | 2018-02-12 08:20 | Physical Therapy Daily Note ---
PT Daily Note-Current Subjective Patient agrees to PT. No c/o and denies pain. Pain Numeric Pain Scale: 0-No Pain Location: No Pain Reported Mental Status Patient Orientation: Confused Transfers Functional [place] Measure 0=Not Assessed/NA 4=Minimal Assistance 1=Total Assistance 5=Supervision or Setup 2=Maximal Assistance 6=Modified [place] 3=Moderate Assistance 7=Complete IndependenceIRFPAI Quality Coding Scale 6 Independent with activity with or without an assistive device 5 Patient requires set up or clean up by helper. Patient completes activity by themselves 4 Supervision or touching assist (CGA). [place] provide cues , steadying assist 3 The helper provides less than half the effort to complete the activity 2 The helper provides more than half the effort to complete the activity 1 Dependent. The helper does all the effort to complete an activity 7 Patient refused to complete or attempt activity 9 The patient did not perform the activity before the current illness or injury 88 Not attempted due to Medical conditions or safety concerns Transfers (B, C, W/C) (FIM): 5 Scootin Rollin Supine to/from Sit: 5 Sit to/from Stand: 5 Weight Bearing Right Lower Extremity: Right Weight Bearing/Tolerated Left Lower Extremity: Left Weight Bearing/Tolerated Gait Training Gait (FIM): 5 Distance (FIM): 3=150 ft Distance: 400' Gait Level of Assist: 5 Gait Assistive Device: FWW slow, steady, functional, no deviation Assessment Patient is up in recliner with chair alarm activated. Noted confusion with inability to remember why she is in the hospital. PT to increase activity as tolerated by patient. PT Mcc Goals Mcc Goals PT Mcc Goals Time Frame: Feb 18, 2018 Transfers (B,C,W/C) (FIM): 6 Gait (FIM): 6 Gait distance (FIM): 3=150 ft Distance: 250' Gait Level of Assist: 6 Gait Assistive Device: FWW Stairs (FIM): 5 # of Steps: 4 Stairs Level Of Assist: 5 PT Plan Treatment/Plan Treatment Plan: Continue Plan of Care Treatment Plan: Bed Mobility, Education, Functional Activity Rebeca, Functional Strength, Gait, Safety, Therapeutic Exercise Treatment Duration: Feb 18, 2018 Frequency: 6 times per week Estimated Hrs Per Day: .25 hour per day Patient and/or Family Agrees t: Yes Time/GCodes Time In: 730 Time Out: 745 Total Billed Treatment Time: 15 Total Billed Treatment 1 visit GT 15 min PT/OT Therapy GCodes Therapy Functional Limitation: Physical Therapy Test(s)/Tool used to determine: FIM Functional Limitation-Current Charge Code: MARCOS Modifier: GINA Functional Limitation-Goal Charge Code: MOBWINSTON Modifier: ARMANI RIVERA PT Feb 12, 2018 08:20
[2018-02-12] MEDS: ATENOLOL 50 MG (TENORMIN) TAB PO SCH (08:46)
--- NOTE | 2018-02-12 10:06 | Progress Note-Hospitalist ---
Subjective HPI/CC On Admission Date Seen by Provider: Feb 12, 2018 Time Seen by Provider: 10:00 Pt is an 87yoCF who presented to the ER due to hip pain following a fall yesterday. She states she was walking down steps and her knee gave out and she fell down the a few stairs on the cement. She hit her head and hip and was not able to get up for a while but eventually was able to stand get around. Her pain continued to worsen and her friend insisted she come in today because she could only take a few steps. She had an CT which revealed a nondisplaced pelvis fracture and MRI confirmed this. Due to her very limited mobility and continued pain she was admitted for pain control and orthopedic evaluation. Of note she did complain to her nurse about chest pain. She originally denied this during my exam and then said she did have some chest pain early this morning but has not had it since arrival. Subjective/Events-last exam Pt reports doing well. Pain improving. Working with PT well. Consider IRU eval. Objective Exam Vital Signs Vital Signs Date Time Temp Pulse Resp B/P (MAP) Pulse Ox O2 Delivery O2 Flow Rate FiO2 02/12/18 08:00 97.2 91 18 128/61 (83) 90 Room Air 02/11/18 09:02 0 Capillary Refill : Less Than 3 SecondsLess Than 3 Seconds General Appearance: No Apparent Distress, WD/WN Respiratory: Lungs Clear, No Respiratory Distress Cardiovascular: Regular Rate, Rhythm, No Murmur Gastrointestinal: Normal Bowel Sounds, Non Tender, Soft Neurologic/Psychiatric: Alert, Oriented x3 Results/Procedures Lab Patient resulted labs reviewed. Imaging: Reviewed Imaging Report Assessment/Plan Assessment and Plan Assess & Plan/Chief Complaint Pelvis fracture Diagnosis/Problems Diagnosis/Problems (1) Fracture, pelvis closed Status: Acute Assessment & Plan: Nondisplaced fracture noted on imaging Ortho consulted, appreciate recs I discussed with Dr Green- no operative repair needed PT/OT consulted Will consult IRU Fentanyl for severe pain and orals for moderate Qualifiers: Encounter type: initial encounter Pelvic bone location: unspecified part of pelvis Fracture alignment: nondisplaced Qualified Codes: S32.9XXA - Fracture of unspecified parts of lumbosacral spine and pelvis, initial encounter for closed fracture (2) Hypertension Status: Chronic Assessment & Plan: BP well controlled, trend Qualifiers: Hypertension type: essential hypertension Qualified Codes: I10 - Essential (primary) hypertension (3) Hypothyroid Status: Chronic Assessment & Plan: Resume home medicines Concern that high TSH due to noncompliance Qualifiers: Hypothyroidism type: acquired Qualified Codes: E03.9 - Hypothyroidism, unspecified (4) Chest pain of uncertain etiology Status: Acute Assessment & Plan: Now resolved Troponin negative EKG unchanged from previous, no STEMI Monitor (5) Prophylactic measure Assessment & Plan: Lovenox Reg Diet Saline lock Clinical Quality Measures DVT/VTE Risk/Contraindication: Risk Factor Score Per Nursin RFS Level Per Nursing on Admit: 4+=Very High PORTER GUTIÉRREZ MD Feb 12, 2018 10:06 am
[2018-02-12 12:00] VITALS: BP 99/58
[2018-02-12] MEDS: fentaNYL INJECTION 100 MCG/2 ML AMP IVP PRN (13:34)
--- NOTE | 2018-02-12 14:31 | Consultation ---
History of Present Illness History of Present Illness Patient Consulted On(maeve/time) 02/12/18 14:26 Date Seen by Provider: Feb 12, 2018 Time Seen by Provider: 14:10 Reason for Visit: Pain right hip after a fall History of Present Illness Fell down stairs Xrays reveal a nondispaced right acute posterior ilium fracture Allergies and Home Medications Allergies Coded Allergies: Sulfa (Sulfonamide Antibiotics) (Verified Allergy, Unknown, 02/11/18) PT DOES NOT KNOW REACTION TO MED Home Medications Aspirin 325 Mg Tablet.dr, 325 MG PO HS, (Reported) Atenolol 50 Mg Tablet, 50 MG PO DAILY, (Reported) LAST FILLED #30 11-23-17 Atorvastatin Calcium 40 Mg Tablet, 40 MG PO HS, (Reported) LAST FILLED #30 18 Cholecalciferol (Vitamin D3) 1,000 Unit Capsule, 1,000 UNIT PO DAILY, (Reported) Krill/Om-3/Dha/Epa/Phospho/Ast 1 Each Capsule, 1 CAP PO HS, (Reported) Levothyroxine Sodium 100 Mcg Tablet, 100 MCG PO DAILY, (Reported) LAST FILLED #30 18 Multivitamin 1 Each Tablet, 1 TAB PO DAILY, (Reported) Vitamin E Acetate 400 Unit Capsule, 400 UNIT PO DAILY, (Reported) Patient Home Medication List Home Medication List Reviewed: Yes Past Zkoljna-Djvzoy-Larsoj Hx Past Med/Social Hx: Reviewed Nursing Past Med/Soc Hx Patient Social History Alcohol Use: Denies Use Recreational Drug Use: No Smoking Status: Current Everyday Smoker 2nd Hand Smoke Exposure: No Recent Foreign Travel: No Contact w/Someone Who Travel: No Recent Infectious Disease Expo: No Recent Hopitalizations: No Physical Abuse: No Sexual Abuse: No Immunizations Up To Date Tetanus Booster (TDap): Unknown PED Vaccines UTD: No Date of Pneumonia Vaccine: May 02, 2013 Date of Influenza Vaccine: May 02, 2013 Seasonal Allergies Seasonal Allergies: No Past Medical History Surgeries: Yes (RIGHT KNEE AND LEFT HIP REPLACEMENTS) Gallbladder, Hysterectomy, Joint Replacement, Orthopedic Respiratory: Yes (AT AGE 7 ) Pneumonia Cardiac: Yes Heart Murmur, Hypertension, Valvular Heart Disease Neurological: No Reproductive Disorders: No Genitourinary: Yes Bladder Infection Gastrointestinal: Yes Obstructive Bowel, Chronic Constipation, Polyps Musculoskeletal: Yes (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) Arthritis, Fractures Endocrine: No Hypothyroidsim HEENT: Yes Cataract Hearing Impairment: Hard of Hearing 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) Psychosocial: Yes Depression Nursing Suicide Risk Score: 0 Integumentary: No Blood Disorders: No Adverse Reaction/Blood Tranf: No Family Medical History Reviewed Nursing Family Hx Myocardial infarction 19 FATHER, Onset:86 (FATHER OF UNKNOWN HEART PROBLEMS, PT STATES IT WAS PROBABLY A HEART ATTACK) 19 MOTHER, Onset:70 G8 BROTHER, Onset:46 G8 SISTER Heart Disease, Hypertension Physical Exam-General Problems Physical Exam Vital Signs Vital Signs - First Documented 02/11/18 09:02 O2 Flow Rate 0 Capillary Refill : Less Than 3 SecondsLess Than 3 Seconds Assessment/Plan Assessment/Plan Admission Diagnosis/Plan Nondisplaced acute right posterior ilium fracture Consult dictated No surgery required Weight bearing as tolerated Pain control Clinical Quality Measures DVT/VTE Risk/Contraindication: Risk Factor Score Per Nursin RFS Level Per Nursing on Admit: 4+=Very High JUAN CARLOS RAO DO Feb 12, 2018 2:30 pm
--- NOTE | 2018-02-12 15:35 | CONSULTATION REPORT ---
DATE OF SERVICE: 02/12/2018 ORTHOPEDIC CONSULTATION IMPRESSION: 1. Acute nondisplaced right posterior ilium fracture. 2. Right lumbar scoliosis. 3. Lumbar spondylosis. 4. Lumbar degenerative disk disease. 5. Status post fall. RECOMMENDATIONS: 1. ambulation, weightbearing as tolerated on the right. 2. Pain control. HISTORY AND PHYSICAL EXAM: The patient is an 87-year-old female, who was seen at the request of Dr. Lang with chief complaint of right hip pain. The patient states that she had fallen down backwards down some steps. She had difficulty ambulating after this. She and when subsequently was evaluated in the emergency room where a CT scan and MRI evaluation revealed a fracture through the posterior ilium on the right with no evidence of displacement noted. No extension in the sacroiliac joint was noted. The patient was hospitalized for physical therapy and pain management. I have reviewed the patient's imaging including the CT scan and the MRI in yesterday's date. I spoke with Dr. Lang yesterday and advised the patient to begin ambulation, weightbearing as tolerated with the physical therapist. The patient was seen and examined on today's date. On exam, the patient's leg lengths are symmetric. There is no swelling in the right hip or the right lower extremity. She has a well-healed incisional scar from her previous total knee arthroplasty on the right. The patient has bruising along the iliac crest to a mild degree superiorly on the lateral aspect of her right hip. She has no evidence of bruising or swelling in the lumbar spine or in the posterior buttock on the right. The patient has an incisional scar well-healed on the left hip from a previous total hip arthroplasty. Neurovascularly, the right lower extremity is intact. Leg lengths are symmetric. The patient's CT scan as well as her MRI were reviewed. The patient demonstrates evidence of a previous total hip arthroplasty on the left. Plain film x-rays demonstrate no evidence of fracture on the right. The patient's CT scan demonstrates a nondisplaced posterior ilium fracture on the right with no extension in the sacroiliac joint. The MRI demonstrates edematous changes at this location. The patient demonstrates a right lumbar scoliosis. She has no acute bony abnormalities noted. She has significant lumbar degenerative disk disease at L2-L3 and L3-L4 with spondylitic changes throughout the lumbar spine. The patient has nondisplaced fracture not involving the sacroiliac joint. There is no involvement of the acetabulum on the right. She states that she is moving fairly slowly with the physical therapist. She does normally live alone. I would recommend the patient continue with her physical therapy. She may need some rehabilitation based on her persistent need for narcotic pain medicine for pain control to allow the patient to return to independent living at home. I discussed the fact that she would not need any further follow up as far as x-rays based on the nondisplaced fracture and the location of the fracture itself. Thank you very much for allowing me to participate in this patient's care. Job ID: [id number] DocumentID: [id number] Dictated Date: 02/12/2018 14:25:11 Government Contracts Manager Date: 02/12/2018 15:35:00 Dictated By: JUAN CARLOS RAO DO
[2018-02-12] MEDS: ENOXAPARIN 30 MG/0.3 ML (LOVENOX) SYR SC SCH (15:43)
[2018-02-12 16:10] VITALS: BP 150/68
[2018-02-12 19:37] VITALS: BP 144/65
[2018-02-12] MEDS: ATORVASTATIN 40 MG (LIPITOR) TABLET PO SCH (20:13)
[2018-02-12] MEDS: ASPIRIN E.C. 325 MG (ECOTRIN) TABLET PO SCH (20:13)
[2018-02-12] MEDS: POLYETHYLENE GLYCOL 17 GM (MIRALAX) PACK PO SCH (20:14)
[2018-02-13] VITALS: BP 158/71
[2018-02-13 04:00] VITALS: BP 131/58
[2018-02-13] MEDS: LEVOTHYROXINE 100 MCG (LEVOTHROID) TAB PO SCH (05:19)
[2018-02-13 08:00] VITALS: BP 134/68
[2018-02-13] MEDS: ATENOLOL 50 MG (TENORMIN) TAB PO SCH (08:11)
--- NOTE | 2018-02-13 09:24 | Progress Note-Hospitalist ---
Subjective HPI/CC On Admission Date Seen by Provider: Feb 13, 2018 Time Seen by Provider: 09:22 Pt is an 87yoCF who presented to the ER due to hip pain following a fall yesterday. She states she was walking down steps and her knee gave out and she fell down the a few stairs on the cement. She hit her head and hip and was not able to get up for a while but eventually was able to stand get around. Her pain continued to worsen and her friend insisted she come in today because she could only take a few steps. She had an CT which revealed a nondisplaced pelvis fracture and MRI confirmed this. Due to her very limited mobility and continued pain she was admitted for pain control and orthopedic evaluation. Of note she did complain to her nurse about chest pain. She originally denied this during my exam and then said she did have some chest pain early this morning but has not had it since arrival. Subjective/Events-last exam Pt reports doing well. She denies pain at rest. States she's not walking though so she doesn't get pain. She is requesting DC home. Friend at bedside expresses concern about discharging to home. Objective Exam Vital Signs Vital Signs Date Time Temp Pulse Resp B/P (MAP) Pulse Ox O2 Delivery O2 Flow Rate FiO2 02/13/18 04:00 98.8 62 18 131/58 (82) 95 Room Air 02/11/18 09:02 0 Capillary Refill : Less Than 3 SecondsLess Than 3 Seconds General Appearance: No Apparent Distress, WD/WN Respiratory: Lungs Clear, No Respiratory Distress Cardiovascular: Regular Rate, Rhythm, No Murmur Gastrointestinal: Normal Bowel Sounds, Non Tender, Soft Neurologic/Psychiatric: Alert, Other (oriented to person and place) Results/Procedures Lab Patient resulted labs reviewed. Imaging: Reviewed Imaging Report Assessment/Plan Assessment and Plan Assess & Plan/Chief Complaint Pelvis fracture Diagnosis/Problems Diagnosis/Problems (1) Fracture, pelvis closed Status: Acute Assessment & Plan: Nondisplaced fracture noted on imaging Ortho consulted, appreciate recs I discussed with Dr Green- no operative repair needed PT/OT consulted Will consult IRU to eval tomorrow If not a candidate would benefit from home health Fentanyl for severe pain and orals for moderate Qualifiers: Encounter type: initial encounter Pelvic bone location: unspecified part of pelvis Fracture alignment: nondisplaced Qualified Codes: S32.9XXA - Fracture of unspecified parts of lumbosacral spine and pelvis, initial encounter for closed fracture (2) Hypertension Status: Chronic Assessment & Plan: BP well controlled for age, trend Qualifiers: Hypertension type: essential hypertension Qualified Codes: I10 - Essential (primary) hypertension (3) Hypothyroid Status: Chronic Assessment & Plan: Resume home medicines Concern that high TSH due to noncompliance Qualifiers: Hypothyroidism type: acquired Qualified Codes: E03.9 - Hypothyroidism, unspecified (4) Chest pain of uncertain etiology Status: Acute Assessment & Plan: Now resolved Troponin negative EKG unchanged from previous, no STEMI Monitor (5) Prophylactic measure Assessment & Plan: Lovenox Reg Diet Saline lock Clinical Quality Measures DVT/VTE Risk/Contraindication: Risk Factor Score Per Nursin RFS Level Per Nursing on Admit: 4+=Very High PORTER GUTIÉRREZ MD Feb 13, 2018 9:24 am
[2018-02-13 12:00] VITALS: BP 117/56
[2018-02-13] MEDS: ENOXAPARIN 30 MG/0.3 ML (LOVENOX) SYR SC SCH (15:38)
[2018-02-13 16:39] VITALS: BP 131/58
[2018-02-13] MEDS: ACETAMINOPHEN 500 MG TAB (TYLENOL) PO PRN (17:46)
[2018-02-13] MEDS: ASPIRIN E.C. 325 MG (ECOTRIN) TABLET PO SCH (20:49)
[2018-02-13] MEDS: ATORVASTATIN 40 MG (LIPITOR) TABLET PO SCH (20:49)
[2018-02-13] MEDS: POLYETHYLENE GLYCOL 17 GM (MIRALAX) PACK PO SCH (21:16)
[2018-02-14] VITALS: BP 156/75
[2018-02-14] MEDS: LEVOTHYROXINE 100 MCG (LEVOTHROID) TAB PO SCH (05:36)
[2018-02-14 08:00] VITALS: BP 159/69
[2018-02-14] MEDS: ATENOLOL 50 MG (TENORMIN) TAB PO SCH (08:19)
[2018-02-14] MEDS: HYDROcodone/APAP 5 MG/325 MG (LORTAB) TAB PO PRN (08:20)
--- NOTE | 2018-02-14 10:44 | Physical Therapy Daily Note ---
PT Daily Note-Current Subjective Patient reports she just returned to bed, but agrees to PT. Pain Numeric Pain Scale: 0-No Pain Location: No Pain Reported Mental Status Patient Orientation: Person, Time, Situation Transfers Functional [place] Measure 0=Not Assessed/NA 4=Minimal Assistance 1=Total Assistance 5=Supervision or Setup 2=Maximal Assistance 6=Modified [place] 3=Moderate Assistance 7=Complete IndependenceIRFPAI Quality Coding Scale 6 Independent with activity with or without an assistive device 5 Patient requires set up or clean up by helper. Patient completes activity by themselves 4 Supervision or touching assist (CGA). [place] provide cues , steadying assist 3 The helper provides less than half the effort to complete the activity 2 The helper provides more than half the effort to complete the activity 1 Dependent. The helper does all the effort to complete an activity 7 Patient refused to complete or attempt activity 9 The patient did not perform the activity before the current illness or injury 88 Not attempted due to Medical conditions or safety concerns Transfers (B, C, W/C) (FIM): 5 Scootin Rollin Supine to/from Sit: 5 Sit to/from Stand: 5 Weight Bearing Right Lower Extremity: Right Weight Bearing/Tolerated Left Lower Extremity: Left Weight Bearing/Tolerated Gait Training Gait (FIM): 5 Distance (FIM): 3=150 ft Distance: 600' Gait Level of Assist: 5 Gait Assistive Device: FWW steady, functional gait sequence with FWW Stair Training Stair Training: Handrails/: 2 handrails Stairs (FIM): 5 #of Steps: 12 Stairs: Pattern: Reciprocal Level of Assist: 5 Assessment Patient tolerated treatment well and returned to bed with bed alarm activated. Patient repeats she desires to return to home today. From a PT standpoint, patient's gross motor skills are functional, however, her cognition is of concern for safety awareness. PT voiced this with SW. PT Alf Goals Fur Blowing Machine Attendant Goals PT Fur Blowing Machine Attendant Goals Time Frame: Feb 18, 2018 Transfers (B,C,W/C) (FIM): 6 Gait (FIM): 6 Gait distance (FIM): 3=150 ft Distance: 250' Gait Level of Assist: 6 Gait Assistive Device: FWW Stairs (FIM): 5 # of Steps: 4 Stairs Level Of Assist: 5 PT Plan Treatment/Plan Treatment Plan: Continue Plan of Care Treatment Plan: Bed Mobility, Education, Functional Activity Rebeca, Functional Strength, Gait, Safety, Therapeutic Exercise Treatment Duration: Feb 18, 2018 Frequency: 6 times per week Estimated Hrs Per Day: .25 hour per day Patient and/or Family Agrees t: Yes Time/GCodes Time In: 930 Time Out: 953 Total Billed Treatment Time: 23 Total Billed Treatment 1 visit FA x 2 23 min PT/OT Therapy GCodes Therapy Functional Limitation: Physical Therapy Test(s)/Tool used to determine: FIM Functional Limitation-Current Charge Code: MOBGABRIEL Modifier: GINA Functional Limitation-Goal Charge Code: MOBDIEGOAL Modifier: ARMANI RIVERA PT Feb 14, 2018 10:44
--- NOTE | 2018-02-14 12:44 | Progress Note-Hospitalist ---
Progress Note Progress Notes/Assess & Plan Date Seen 02/14/18 Time Seen by Provider: 11:50 Assessment & Plan The patient was admitted after suffering a fall in her home. X-rays showed a right iliac fracture near the SI joint. No hip fracture was noted. MRI was performed to further evaluate and did not show any new fractures. She was having a great deal of problems dealing with the pain and ambulation. She has improved in that regard. She does not wish any consideration of short-term prison placement to work her way through this. She will agree to home physical therapy. Physical exam: She is sitting in a chair at the bedside. She is alert and well composed. Lungs are clear to auscultation. CV is regular. There is minimal pedal edema. Impression: Generalized debility. 2.fracture of the right iliac near the sacroiliac joint. Plan: See discharge sequence for medications and routines. BRITT SMITH MD Feb 14, 2018 12:44
--- NOTE | 2018-02-14 12:47 | Discharge Instructions ---
Discharge Instructions Patient Instructions Patient Instructions: Medications as listed on your discharge sequence. Use a walker at all times Home physical therapy has been ordered to improve your strength and skills Activity & Diet Discharge Diet: No Restrictions Activity as Tolerated: Yes BRITT SMITH MD Feb 14, 2018 12:47
--- NOTE | 2018-02-14 13:38 | D/C HH Face to Face Order ---
D/C Face to Face Orders Instructions for Patient Patient Instructions/FollowUp: See part 1 Physician to follow Patient: JULIENErin Martin Discharge Diet for Home: No Restrictions Patient Data-Allergies,Ht & Wt Patient Allergies: Coded Allergies: Sulfa (Sulfonamide Antibiotics) (Verified Allergy, Unknown, 02/11/18) PT DOES NOT KNOW REACTION TO MED Height (Feet): 5 Height (Inches): 1.00 Weight (Pounds): 113 Weight (Ounces): 7.0 Home Health Need/Face to Face Date of Face to Face: Feb 14, 2018 Clinical Findings: Pain with ambulation I have seen Pt [id number]: Yes Discharged To: Home Diagnosis/Conditions: Fractured pelvis Patient is Homebound due to: Ravindra fall risk due to instabilty, Pain w/ ambulation Homebound Status Due to the above stated illness, injury or surgical procedure (medical condition or diagnosis) and associated clinical findings, the patient is homebound because of his/her inability to leave home except with aid of a supportive device and/or person AND leaving the home requires a considerable and taxing effort or is medically contraindicated. Pt req the following assistanc: Walker Home Health Nursing Orders Home Health Services Order: Physical Therapy-Evaluate & Treat Home Health Infusion Therapy Line Start Date: Feb 11, 2018 Line Start Time: 0554 Line Type: Saline Lock Site Location: Forearm Certify Stmt I certify that this patient is under my care and that I, a nurse practitioner or a physician; a medical clerical assistant working with me, had a face to face encounter that - meets the physician face to face encounter requirements with this patient as dated. BRITT Griffith MD Feb 14, 2018 13:38
--- NOTE | 2018-02-14 13:42 | Occupational Ther Daily Note ---
OT Current Status-Daily Note Subjective Pt alert, sitting in recliner. On first attempt to see pt, pt had just gotten lunch and demonstrated ability to complete by self. Second attempt, pt agrees to therapy. Pt stated that she was going home today. Pt has tub shower and steps into tub. No c/o pain at this time. Mental Status/Objective Patient Orientation: Person, Time Functional [place] Measure 0=Not Assessed/NA 4=Minimal Assistance 1=Total Assistance 5=Supervision or Setup 2=Maximal Assistance 6=Modified [place] 3=Moderate Assistance 7=Complete [place] ADL-Treatment Per nrsg, pt requires assistance for lower body dressing due to unsteadiness, able to don/doff over feet. Pt stands to don/doff upper body clothing, nrsg educated pt on safety, did not demonstrate understanding of safety per nrsg. Other Treatment Pt completed UE strengthening exercises against gravity to increase strength and activity tolerance. 5 UE exercises completed 1 set 10 reps. Pt educated on completing daily at home. After therapy, pt sitting in recliner with call light/phone in reach. Safety measures in place. All needs met. Education OT Patient Education: Exercise program, Safety issues Teaching Recipient: Patient Teaching Methods: Demonstration, Discussion Response to Teaching: Return Demonstration, Reinforcement Needed OT Short Term Goals Short Term Goals 1=Demonstrate adherence to instructed precautions during ADL tasks. 2=Patient will verbalize/demonstrate understanding of assistive devices/ modifications for ADL. 3=Patient will improve strength/tolerance for activity to enable patient to perform ADL's. OT Airport Shuttle Driver Goals Senior Care Goals Time Frame: Feb 18, 2018 Eating (FIM): 6 Grooming(FIM): 6 Bathing(FIM): 6 Upper Body Dressing(FIM): 6 Lower Body Dressing(FIM): 6 Toileting(FIM): 6 Toilet/Commode Transfer(FIM): 6 Shower Transfer(FIM): 5 Additional Goals: 1-Demonstrate ADL Tasks, 2-Verbalize Understanding, 3- ImproveStrength/Rebeca 1=Demonstrate adherence to instructed precautions during ADL tasks. 2=Patient will verbalize/demonstrate understanding of assistive devices/ modifications for ADL. 3=Patient will improve strength/tolerance for activity to enable patient to perform ADL's. OT Education/Plan Problem List/Assessment Pt would benefit from skilled OT to increase her independence ini basic self care Discharge Recommendations Plan/Recommendations: Continue POC Treatment Plan/Plan of Care Patient would benefit from OT for education, treatment and training to promote independence in ADL's, mobility, safety and/or upper extremity function for ADL' s. Plan of Care: ADL Retraining, Functional Mobility, UE Funct Exercise/Act, UE Neuromus Re-Ed/Coord Treatment Duration: Feb 18, 2018 Frequency: 5 times per week Estimated Hrs Per Day: .5 hour per day Agreement: Yes Rehab Potential: Fair Time/GCodes Start Time: 13:00 Stop Time: 13:13 Total Time Billed (hr/min): 13 Billed Treatment Time 1 visit-FA 1 (13 min) PT/OT Therapy GCodes Therapy Functional Limitation: Physical Therapy Test(s)/Tool used to determine: FIM Functional Limitation-Current Charge Code: MOBCUR Modifier: CJ Functional Limitation-Goal Charge Code: MOBGOAL Modifier: JINNY BOOTH Feb 14, 2018 13:42
== END 2018-02-14 15:20 | disposition home health service (06) | DRG 536 ==
LOC: EDUNIT# 05:36 → ER 05:37 → 4TH 07:45
PROVIDERS: ADMIT Family Medicine; ATTEND Family Medicine
DX: S32.301A Unspecified fracture of right ilium, initial encounter for closed fracture (principal); S09.90XA Unspecified injury of head, initial encounter; M54.2 Cervicalgia; I10 Essential (primary) hypertension; E03.9 Hypothyroidism, unspecified; M15.9 Polyosteoarthritis, unspecified; K59.09 Other constipation; F32.9 Major depressive disorder, single episode, unspecified; R01.1 Cardiac murmur, unspecified; F17.200 Nicotine dependence, unspecified, uncomplicated; R07.9 Chest pain, unspecified; R53.81 Other malaise; W10.9XXA Fall (on) (from) unspecified stairs and steps, initial encounter; Y92.008 Other place in unspecified non-institutional (private) residence as the place of occurrence of the external cause; Z96.651 Presence of right artificial knee joint; Z96.642 Presence of left artificial hip joint
CPT/HCPCS: 36415; 70450; 71250; 72125; 72195; 74176; 80053; 81000; 84439; 84443; 84484; 85025; 93005; 93041; 96361; 96374; 96375

== ENCOUNTER → 2018-02-17 | Outpatient (CLI) | payer MEDICARE, OTHER ==
[~2018-02-17] MED LIST changes: +ASPI325T32 PO; +ATOR40TA PO; +CHOL10007 PO; +LEVO100T7 PO; +MULT-35 PO; +VITA400C60 PO
--- NOTE | 2018-02-17 14:06 | Diagnostic Imaging Report ---
INDICATION: Pain and abnormal lung sounds. COMPARISON: 01/24/2018 FINDINGS: 2 views of the chest are obtained. Heart size is normal. The pulmonary vessels appear unremarkable. There is no pneumothorax, mediastinal widening or pleural fluid. Right 11th rib fracture is unchanged. No new abnormality is seen. IMPRESSION: No acute cardiopulmonary abnormality is demonstrated. No interval change from the prior study. Right 11th rib fracture is again noted. Dictated by: Dictated on workstation # [id number]
== END ==
LOC: RAD 10:59
PROVIDERS: ATTEND Internal Medicine
DX: S22.31XA Fracture of one rib, right side, initial encounter for closed fracture (principal); R91.8 Other nonspecific abnormal finding of lung field
CPT/HCPCS: 71046